=== PATIENT | female | born 1955 | race Two or more races ===

== ENCOUNTER 2016-09-14 22:45 | Emergency (ER) | payer MEDICAID ==
[~2016-09-14] VITALS: Ht 160 cm; Wt 68.9 kg
[2016-09-14 23:10] VITALS: BP 171/72
[2016-09-14] MEDS ORDERED: cefTRIAXone 1 GM in NS 55 ML IVPB ONE (23:15)
--- NOTE | 2016-09-14 23:18 | Emergency Room Report ---
History of Present Illness General Chief Complaint: Pain Source: Patient Present Illness HPI This is a 60-year-old female with history diabetes. She presents with chief complaint of left foot pain. She noticed some redness in the dorsum of foot 3 days ago. Now is getting worse and tracking up to the ankle. No fever or chills. No trauma. No drainage. Pain is 7/10. No other complaint. Allergies: Coded Allergies: No Known Allergies (Unverified , 09/14/16) Patient History Past Medical History: see triage record, old chart reviewed, DM Past Surgical History: other Pertinent Family History: none Social History: Denies: smoking Now: No Immunizations: other Reviewed Nursing Documentation: PMH: Agreed, PSxH: Agreed Nursing Documentation-PMH Past Medical History: No History, Except For Hx Hypertension: Yes Hx Diabetes: Yes Review of Systems Eye: Denies: blurred vision, eye pain ENT: Denies: ear pain, nose congestion, throat swelling Respiratory: Denies: cough, shortness of breath Cardiovascular: Denies: chest pain, palpitations Gastrointestinal: Denies: abdominal pain, diarrhea, nausea, vomiting Musculoskeletal: Denies: back pain, joint pain Skin: Denies: rash Neurological: Denies: headache, numbness Endocrine: Denies: increased thirst, increased urine Hematologic/Lymphatic: Denies: easy bruising All Other Systems: negative except mentioned in HPI Physical Exam Vital Signs Date Time Temp Pulse Resp B/P Pulse Ox O2 Delivery O2 Flow Rate FiO2 09/14/16 22:54 97.5 85 16 195/83 99 Room Air vitals with hypertension Sp02 EP Interpretation: reviewed, normal General Appearance: well appearing, no apparent distress, alert Head: normocephalic, atraumatic Eyes: bilateral eye EOMI, bilateral eye PERRL ENT: hearing grossly normal, normal pharynx Neck: full range of motion, supple, no meningismus Respiratory: chest non-tender, lungs clear, normal breath sounds Cardiovascular #1: regular rate, rhythm, no murmur Gastrointestinal: normal bowel sounds, non tender, no mass, no organomegaly, no bruit, non-distended Musculoskeletal: back normal, gait/station normal, normal range of motion, other - Left foot: On the dorsum of the foot there is an area of erythema measuring about 4 cm. Localized to the second through fourth toes at the webspace and tracking proximally to the ankle. No erythema. No crepitance. Sensation normal. Full range of motion of the ankle and toes. Psychiatric: mood/affect normal Skin: warm/dry Medical Decision Making Diagnostic Impression: Primary Impression: Cellulitis of left foot excluding toes Additional Impressions: Hypertension Qualified Codes: I10 - Essential (primary) hypertension Hyperglycemia due to type 2 diabetes mellitus Qualified Codes: E11.65 - Type 2 diabetes mellitus with hyperglycemia ER Course Patient presents with cellulitis of her left foot. No evidence of any abscess or necrotizing fasciitis. We'll discharge home. Blood pressure improved. Antibiotics given here. Lab Results Impression labs showed hyperglycemia Last Vital Signs Date Time Temp Pulse Resp B/P Pulse Ox O2 Delivery O2 Flow Rate FiO2 09/14/16 22:54 97.5 85 16 195/83 99 Room Air Status: improved Disposition: HOME, SELF-CARE Condition: Stable Additional Instructions: Followup with your Dr. in 2-3 days. Return if symptom worsen. FELIX CARVALHO M.D. Sep 14, 2016 23:18
[2016-09-14 23:53] LABS: BASOPHILS % (AUTO) 0.7 % (0.0-2.0); EOSINOPHILS % (AUTO) 2.3 % (0.0-3.0); LYMPHOCYTES % (AUTO) 15.2 % (20.0-45.0); MEAN CORPUSCULAR HEMOGLOBIN 33.8 PG (27.0-31.0); MEAN CORPUSCULAR HGB CONC 36.3 G/DL (32.0-36.0); MEAN CORPUSCULAR VOLUME 93 FL (80-99); MEAN PLATELET VOLUME 9.8 FL (6.5-10.1); MONOCYTES % (AUTO) 8.4 % (1.0-10.0); NEUTROPHILS % (AUTO) 73.3 % (45.0-75.0); PLATELET COUNT 128 K/UL (150-450); RED BLOOD COUNT 3.54 M/UL (4.20-5.40); RED CELL DISTRIBUTION WIDTH 11.7 % (11.6-14.8); WHITE BLOOD COUNT 8.6 K/UL (4.8-10.8)
[2016-09-15 00:07] LABS: ANION GAP 16 (5-15); CALCIUM 9.6 mg/dL (8.6-10.2); CARBON DIOXIDE 25 mEQ/L (20-30); CHLORIDE 97 mEQ/L (98-107); CREATININE 0.9 mg/dL (0.5-0.9); GLOMERULAR FILTRATION RATE > 60 mL/min (>60); HEMOLYSIS 3; SODIUM 138 mEQ/L (135-145)
[2016-09-15 00:51] VITALS: BP 156/71
[2016-09-15 00:52] VITALS: BP 156/71
[2016-10-03] MEDS ORDERED: ZYVOX600 MG ORAL (13:27)
== END 2016-09-15 00:53 | disposition home or self-care (01) ==
LOC: EMR 23:08
DX: L03.116 Cellulitis of left lower limb (principal); I10 Essential (primary) hypertension; E11.65 Type 2 diabetes mellitus with hyperglycemia
CPT/HCPCS: 36415; 80048; 85025; 96374; 99284; J0696

== ENCOUNTER 2016-09-20 08:15 | Inpatient (IN) | payer MEDICAID ==
[~2016-09-20] VITALS: Ht 162.6 cm; Wt 69.4 kg
[2016-09-20] MEDS ORDERED: Cefepime HCl 1 GM in NS 55 ML IV SCH (08:45)
[2016-09-20] MEDS ORDERED: fentaNYL 100 mcg/2 mL IV ONE (08:45)
[2016-09-20] MEDS ORDERED: Vancomycin 1 GM in NS 275 ML IV ONE (08:45)
[2016-09-20] MEDS ORDERED: metroNIDAZOLE 500mg 100 ML IV SCH (08:45)
--- NOTE | 2016-09-20 08:51 | Emergency Room Report ---
History of Present Illness General Chief Complaint: Lower Extremity Injury Source: Patient Present Illness HPI The patient presents with left foot pain. She was started on clindamycin on . She's been taking them. The foot is not better and still has pain. She's been taking ibuprofen. > 10 years since her last tetanus shot. No fevers chills. No numbness. Foot is painful: 8/10,. burning, constant but worse when dependent. No known PVD. Patient on metformin. No known trauma. Allergies: Coded Allergies: No Known Allergies (Unverified , 09/14/16) Patient History Past Medical History: see triage record Social History: Denies: smoking Social History Narrative with daughter Last Menstrual Period: na Reviewed Nursing Documentation: PMH: Agreed, PSxH: Agreed Nursing Documentation-PMH Past Medical History: No History, Except For Hx Hypertension: Yes Hx Diabetes: Yes Review of Systems All Other Systems: negative except mentioned in HPI Physical Exam Vital Signs Date Time Temp Pulse Resp B/P Pulse Ox O2 Delivery O2 Flow Rate FiO2 09/20/16 08:32 97.5 70 18 183/79 99 Room Air Sp02 EP Interpretation: reviewed, normal General Appearance: well appearing, no apparent distress, GCS 15 Head: normocephalic Eyes: bilateral eye PERRL, bilateral eye normal inspection ENT: moist mucus membranes Neck: supple Respiratory: lungs clear, normal breath sounds Cardiovascular #1: regular rate, rhythm Cardiovascular #2: 2+ radial (R), 2+ dorsalis pedis (R), 2+ dorsalis pedis (L) - good cap fill Gastrointestinal: normal inspection, normal bowel sounds, non tender, no mass, non-distended Musculoskeletal: back normal, gait/station normal - with slight limp due to L foot pain, normal range of motion, no calf tenderness Neurologic: alert, oriented x3, grossly normal Skin: warm/dry, other - erythema L foot dorsum with fungal growth between toes Medical Decision Making Diagnostic Impression: Primary Impression: Cellulitis Qualified Codes: L03.116 - Cellulitis of left lower limb Additional Impressions: Antibiotic failure Foreign body R 5th toe Diabetes Qualified Codes: E11.628 - Type 2 diabetes mellitus with other skin complications ER Course Patient presents several days and to course of clindamycin. The cellulitis in her foot is not improving. If he continues in her swelling and pain. Differential includes resistant organism, poor circulation, and adequate antibiotic levels. Patient needs to be admitted to the hospital for IV antibiotics as an outpatient antibiotics have failed. WBC and ESR normal. Improved with treatment. Radiology calls with stating FB 5th toe. (I question this finding.) Review with patient who denies any trauma or possible FB. Admit Med Dr. Rhodes. Message for Dr. Brady to consult (podiatry). Laboratory Tests Test 09/20/16 09:10 09/20/16 11:10 White Blood Count 7.3 K/UL (4.8-10.8) Red Blood Count 3.36 M/UL (4.20-5.40) L Hemoglobin 10.9 G/DL (12.0-16.0) L Hematocrit 30.9 % (37.0-47.0) L Mean Corpuscular Volume 92 FL (80-99) Mean Corpuscular Hemoglobin 32.3 PG (27.0-31.0) H Mean Corpuscular Hemoglobin Concent 35.1 G/DL (32.0-36.0) Red Cell Distribution Width 10.8 % (11.6-14.8) L Platelet Count 155 K/UL (150-450) Mean Platelet Volume 8.1 FL (6.5-10.1) Neutrophils (%) (Auto) 71.9 % (45.0-75.0) Lymphocytes (%) (Auto) 16.9 % (20.0-45.0) L Monocytes (%) (Auto) 7.6 % (1.0-10.0) Eosinophils (%) (Auto) 2.6 % (0.0-3.0) Basophils (%) (Auto) 0.9 % (0.0-2.0) Erythrocyte Sedimentation Rate 106 MM/HR (0-30) H Prothrombin Time 9.4 SEC (9.30-11.50) Prothrombin Time INR 0.9 (0.9-1.1) PTT 27 SEC (23-33) Sodium Level 138 mEQ/L (135-145) Potassium Level 4.1 mEQ/L (3.4-4.9) Chloride Level 99 mEQ/L (98-107) Carbon Dioxide Level 27 mEQ/L (20-30) Anion Gap 12 (5-15) Blood Urea Nitrogen 16 mg/dL (7-23) Creatinine 0.7 mg/dL (0.5-0.9) Estimate Glomerular Filtration Rate > 60 mL/min (>60) Glucose Level 170 mg/dL (74-106) H Lactic Acid Level 0.60 mmol/L (0.66-2.22) L Calcium Level 9.8 mg/dL (8.6-10.2) Total Bilirubin 0.3 mg/dL (0.0-1.2) Aspartate Amino Transferase (AST) 9 U/L (5-40) Alanine Aminotransferase (ALT) 8 U/L (3-33) Alkaline Phosphatase 93 U/L (35-104) Total Creatine Kinase 45 U/L (26-140) Troponin I < 0.30 ng/mL (<=0.30) Total Protein 7.7 g/dL (6.6-8.7) Albumin 4.0 g/dL (3.5-5.2) Globulin 3.7 g/dL Albumin/Globulin Ratio 1.0 (1.0-2.7) Urine Color Pending Urine Appearance Pending Urine pH Pending Urine Specific [place] Pending Urine Protein Pending Urine Glucose (UA) Pending Urine Ketones Pending Urine Occult Blood Pending Urine Nitrite Pending Urine Bilirubin Pending Urine Urobilinogen Pending Urine Leukocyte Esterase Pending EKG Diagnostic Results Rate: normal Rhythm: NSR ST Segments: no acute changes Rhythm Strip Diag. Results EP Interpretation: yes Rhythm: NSR, no PVC's, no ectopy Chest X-Ray Diagnostic Results EP Interpretation: Yes Findings: no consolidation, no effusion, no pneumothorax, no acute cardiopulmonary disease Number of Views: 1 Other X-Ray Diagnostic Results Other X-Ray Diagnostic Results : X-Ray Ordered: L foot EP Interpretation: Yes Findings: no fractures, no dislocation, no soft tissue swelling, other - - Foreign body 5th toe Number of Views: 3 Last Vital Signs Date Time Temp Pulse Resp B/P Pulse Ox O2 Delivery O2 Flow Rate FiO2 09/20/16 12:18 97.6 69 18 150/69 99 Room Air Status: improved Disposition: ADMITTED INPATIENT Condition: Serious Demetrio Garvin M.D. Sep 20, 2016 08:51
[2016-09-20] MEDS ORDERED: TdaP Vaccine 0.5ml Syr IM ONE (09:00)
[2016-09-20] MEDS ORDERED: Vancomycin 1gm inj IVPB ONE (09:21)
[2016-09-20] MEDS ORDERED: Cefepime 1gm vial ONE (09:21)
[2016-09-20 09:23] LABS: BASOPHILS % (AUTO) 0.9 % (0.0-2.0); EOSINOPHILS % (AUTO) 2.6 % (0.0-3.0); LYMPHOCYTES % (AUTO) 16.9 % (20.0-45.0); MEAN CORPUSCULAR HEMOGLOBIN 32.3 PG (27.0-31.0); MEAN CORPUSCULAR HGB CONC 35.1 G/DL (32.0-36.0); MEAN CORPUSCULAR VOLUME 92 FL (80-99); MEAN PLATELET VOLUME 8.1 FL (6.5-10.1); MONOCYTES % (AUTO) 7.6 % (1.0-10.0); NEUTROPHILS % (AUTO) 71.9 % (45.0-75.0); PLATELET COUNT 155 K/UL (150-450); RED BLOOD COUNT 3.36 M/UL (4.20-5.40); RED CELL DISTRIBUTION WIDTH 10.8 % (11.6-14.8); WHITE BLOOD COUNT 7.3 K/UL (4.8-10.8)
[2016-09-20 09:31] LABS: INR 0.9 (0.9-1.1); PROTHROMBIN TIME 9.4 SEC (9.30-11.50)
[2016-09-20 09:35] LABS: ALANINE AMINOTRANSFERASE 8 U/L (3-33); ANION GAP 12 (5-15); ASPARTATE AMINO TRANSFERASE 9 U/L (5-40); CALCIUM 9.8 mg/dL (8.6-10.2); CARBON DIOXIDE 27 mEQ/L (20-30); CHLORIDE 99 mEQ/L (98-107); CREATININE 0.7 mg/dL (0.5-0.9); GLOMERULAR FILTRATION RATE > 60 mL/min (>60); HEMOLYSIS 1; POTASSIUM 4.1 mEQ/L (3.4-4.9); SODIUM 138 mEQ/L (135-145); TOTAL PROTEIN 7.7 g/dL (6.6-8.7)
[2016-09-20 09:38] LABS: TROPONIN I < 0.30 ng/mL (<=0.30)
[2016-09-20 10:27] LABS: ERYTHROCYTE SEDIMENTATION RATE 106 MM/HR (0-30)
[2016-09-20 11:34] LABS: APPEARANCE,URINE CLEAR; KETONES,URINE NEGATIVE (NEGATIVE); LEUKOCYTE ESTERASE ,URINE NEGATIVE (NEGATIVE); NITRITE,URINE NEGATIVE (NEGATIVE); PH,URINE 5 (4.5-8.0); PROTEIN,URINE 3+ (NEGATIVE); UROBILINOGEN,URINE NORMAL MG/DL (0.0-1.0)
[2016-09-20 11:51] LABS: BACTERIA,URINE FEW /HPF; RBC,URINE 0-2 /HPF (0 - 2); SQUAMOUS EPITHELIAL CELL,UR FEW /LPF (NONE/OCC); WBC,URINE 0-2 /HPF (0 - 2)
--- NOTE | 2016-09-20 12:13 | Diagnostic Imaging Report ---
Indication: Pain. Swollen foot Technique: 3 views left foot Comparison: none Findings: A 2 mm metallic foreign body is seen within the medial aspect of the soft tissues of the fifth digit. This appears to be located inferiorly. No acute fractures. No dislocations. No definite osteolytic process or unusual periosteal reaction. The joint spaces are preserved Impression: Positive for foreign body within the left fifth toe. No acute bony trauma No plain radiographic findings to suggest osteomyelitis. However, note limited sensitivity of plain radiographs for such. There is high clinical suspicion, consider MRI or nuclear medicine bone scan for more sensitive characterization
[2016-09-20 12:18] VITALS: BP 150/69
--- NOTE | 2016-09-20 12:21 | Diagnostic Imaging Report ---
Indication: Chest pain Technique: One view of the chest Comparison: none Findings: Lungs and pleural spaces are clear. Heart size is normal. Impression: No acute process
[2016-09-20] MEDS ORDERED: LISINOPRIL10 MG ORAL (14:00)
[2016-09-20] MEDS ORDERED: METFORMIN HCL500 M1 ORAL (14:00)
--- NOTE | 2016-09-20 15:54 | Infectious Diseases Prog Note ---
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, will continue wide spectrum antibiotics (2) Cellulitis of left foot Assessment & Plan: will continue vancomycin, metronidazol and cefepime empirically , will order an MRI to rule out osteomyelitis, after the foreign body is removed (3) Diabetes mellitus Assessment & Plan: recommend tight glycemic control to keep blood glucose between 80-120 (4) HTN (hypertension) Assessment & Plan: continue meds to keep BP <140 Subjective Allergies: Coded Allergies: No Known Allergies (Unverified , 09/14/16) Objective Vital Signs Last 24 Hour Vital Signs Date Time Temp Pulse Resp B/P Pulse Ox O2 Delivery O2 Flow Rate FiO2 09/20/16 13:00 97.6 09/20/16 12:18 97.6 69 18 150/69 99 Room Air 09/20/16 08:32 97.5 70 18 183/79 99 Room Air Height (Feet): 5 Height (Inches): 2.00 Weight (Pounds): 140 Laboratory Tests Test 09/20/16 09:10 09/20/16 11:10 White Blood Count 7.3 K/UL (4.8-10.8) Red Blood Count 3.36 M/UL (4.20-5.40) L Hemoglobin 10.9 G/DL (12.0-16.0) L Hematocrit 30.9 % (37.0-47.0) L Mean Corpuscular Volume 92 FL (80-99) Mean Corpuscular Hemoglobin 32.3 PG (27.0-31.0) H Mean Corpuscular Hemoglobin Concent 35.1 G/DL (32.0-36.0) Red Cell Distribution Width 10.8 % (11.6-14.8) L Platelet Count 155 K/UL (150-450) Mean Platelet Volume 8.1 FL (6.5-10.1) Neutrophils (%) (Auto) 71.9 % (45.0-75.0) Lymphocytes (%) (Auto) 16.9 % (20.0-45.0) L Monocytes (%) (Auto) 7.6 % (1.0-10.0) Eosinophils (%) (Auto) 2.6 % (0.0-3.0) Basophils (%) (Auto) 0.9 % (0.0-2.0) Erythrocyte Sedimentation Rate 106 MM/HR (0-30) H Prothrombin Time 9.4 SEC (9.30-11.50) Prothromb Time International Ratio 0.9 (0.9-1.1) Activated Partial Thromboplast Time 27 SEC (23-33) Sodium Level 138 mEQ/L (135-145) Potassium Level 4.1 mEQ/L (3.4-4.9) Chloride Level 99 mEQ/L (98-107) Carbon Dioxide Level 27 mEQ/L (20-30) Anion Gap 12 (5-15) Blood Urea Nitrogen 16 mg/dL (7-23) Creatinine 0.7 mg/dL (0.5-0.9) Estimat Glomerular Filtration Rate > 60 mL/min (>60) Glucose Level 170 mg/dL (74-106) H Lactic Acid Level 0.60 mmol/L (0.66-2.22) L Calcium Level 9.8 mg/dL (8.6-10.2) Total Bilirubin 0.3 mg/dL (0.0-1.2) Aspartate Amino Transf (AST/SGOT) 9 U/L (5-40) Alanine Aminotransferase (ALT/SGPT) 8 U/L (3-33) Alkaline Phosphatase 93 U/L (35-104) Total Creatine Kinase 45 U/L (26-140) Troponin I < 0.30 ng/mL (<=0.30) Total Protein 7.7 g/dL (6.6-8.7) Albumin 4.0 g/dL (3.5-5.2) Globulin 3.7 g/dL Albumin/Globulin Ratio 1.0 (1.0-2.7) Urine Color Pale yellow Urine Appearance Clear Urine pH 5 (4.5-8.0) Urine Specific [place] 1.010 (1.005-1.035) Urine Protein 3+ (NEGATIVE) H Urine Glucose (UA) 1+ (NEGATIVE) H Urine Ketones Negative (NEGATIVE) Urine Occult Blood 1+ (NEGATIVE) H Urine Nitrite Negative (NEGATIVE) Urine Bilirubin Negative (NEGATIVE) Urine Urobilinogen Normal MG/DL (0.0-1.0) Urine Leukocyte Esterase Negative (NEGATIVE) Urine RBC 0-2 /HPF (0 - 2) Urine WBC 0-2 /HPF (0 - 2) Urine Squamous Epithelial Cells Few /LPF (NONE/OCC) Urine Bacteria Few /HPF (NONE) Current Medications Medications (Trade) Dose Ordered Sig/Jesse Route PRN Reason Start Time Stop Time Status Last Admin Dose Admin Cefepime HCl 1 gm/ Sodium Chloride 55 ml @ 110 mls/hr Q12H IV 09/20/16 08:45 09/21/16 08:44 09/20/16 09:27 Metronidazole 100 ml @ 100 mls/hr Q8H IV 09/20/16 08:45 09/21/16 08:44 09/20/16 09:28 Vancomycin HCl/ Dextrose (Vancomycin/D5W) 275 ml @ 183.708 mls/hr Q12HR IVPB 09/20/16 21:00 09/25/16 20:59 Mino Boyd M.D. Sep 20, 2016 15:54
[2016-09-20 19:00] VITALS: BP 147/72
[2016-09-20] MEDS ORDERED: Vancomycin 1 GM in D5W 275 ML IVPB SCH (21:00)
[2016-09-20] MEDS: Vancomycin 750mg/D5W 275ml IVPB SCH ×2 (21:51)
[2016-09-20] MEDS: Lisinopril 10mg tab ORAL SCH (21:51)
[2016-09-20] MEDS: NovoLOG Insulin Flexpen SUBQ SCH (21:55)
--- NOTE | 2016-09-20 22:07 | Consultation ---
DATE OF CONSULTATION: INFECTIOUS DISEASE CONSULTATION CONSULTING PHYSICIAN: Mino Paz M.D. REQUESTING PHYSICIAN: Pauline Rhodes M.D. REASON FOR CONSULTATION: Left foot cellulitis with foreign body in the fourth toe. Recommendation for antibiotics therapy since she failed outpatient oral treatment. HISTORY OF PRESENT ILLNESS: The patient is a 61-year-old female with past medical history of diabetes and hypertension, who presented to the emergency room with left foot pain, swelling, redness, and erythema. It happened last Monday when she was walking in the park. She felt something stuck in her foot, came into the emergency room couple of days ago, and she was given clindamycin on and discharged home. The patient has been taking clindamycin without any clinical improvement. She continued to have pain and swelling and redness in her left foot. She has been taking ibuprofen without any help, so she came in today to the emergency room for further evaluation and management. The patient had an x-ray of the left foot, which showed foreign body in the fourth toe, so she was started empirically on vancomycin, cefepime, and Flagyl and I was consulted by the primary provider for antibiotics recommendation and management. The patient denied any fever or chills. No cough or shortness of breath. No chest pain. No nausea, vomiting, or diarrhea. No urinary symptoms. No dysuria. PAST MEDICAL HISTORY: Significant for hypertension and diabetes. PAST SURGICAL HISTORY: Negative. MEDICATIONS: She is on vancomycin, cefepime, and Flagyl. ALLERGIES: She has no known drug allergy. 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 No drugs, tobacco, or alcohol. FAMILY HISTORY: Not contributory. REVIEW OF SYSTEMS: A 14-point of systems reviewed were all negative apart from the one I mentioned above in the History and Physical. PHYSICAL EXAMINATION: VITAL SIGNS: Temperature 97.6 degrees, pulse 69, respirations 18, blood pressure 150/69, and saturation 99% on room air. GENERAL: A middle-aged female, up in bed, awake, alert, oriented, Swedish speaker, and daughter at the bedside translating for her. She is not in acute distress. HEENT: Normocephalic and atraumatic. Pupils are reactive to light equally. Moist oral mucosa. No exudate or thrush. NECK: Supple. No lymphadenopathy. CARDIOVASCULAR: Regular rate and rhythm. No murmur or gallop. LUNGS: Clear bilaterally. No wheezing. No rhonchi. ABDOMEN: Soft, nontender, and nondistended. Positive bowel sounds. No hepatosplenomegaly or ascites. EXTREMITIES: She had left foot cellulitis extending on the dorsal aspect with swelling in the toes mainly the fourth one day. She had a puncture wound at the sole of the left foot where she had foreign body evident on the x-ray. LABORATORY DATA: Labs showed white count of 7.3, hemoglobin of 10.9, and platelet count of 155,000. BUN of 16 and creatinine of 0.7. AST of 9, ALT of 8, and alkaline phosphatase of 93. Urinalysis showed negative nitrates, negative leukocyte esterase, and few bacteria. IMAGING: She had left foot x-ray, which showed a foreign body within the left fifth toe. Chest x-ray showed no acute infiltrate or effusion. ASSESSMENT AND PLAN: 1. Acute foreign body of the foot. Recommend Podiatry consultation for removal. We will continue wide-spectrum antibiotics coverage with vancomycin, cefepime, and Flagyl for now pending further treatment. 2. Cellulitis of the left foot. We will continue vancomycin, metronidazole, and cefepime empirically. We will order MRI to rule out osteomyelitis once her foreign body is removed. We will monitor the sedimentation rate and C-reactive protein. 3. Diabetes. Recommend tight glycemic control to keep blood glucose between 80 to 120. 4. Hypertension. Continue medications to keep blood pressure less than 140. Mino Paz M.D. DR: RONALD JOB#: [id number] CC:
[2016-09-21] VITALS: BP 187/80
[2016-09-21] MEDS: metFORMIN 500mg tab ORAL SCH ×2 (06:20→13:45)
[2016-09-21] MEDS: NovoLOG Insulin Flexpen SUBQ SCH ×4 (06:21→21:49)
[2016-09-21 08:00] VITALS: BP 151/74
[2016-09-21] MEDS: Lisinopril 10mg tab ORAL SCH ×2 (09:04→17:21)
[2016-09-21] MEDS: Vancomycin 750mg/D5W 275ml IVPB SCH ×4 (09:05→21:48)
[2016-09-21] MEDS ORDERED: Vancomycin 1gm in D5W 275ml IVPB SCH (09:30)
[2016-09-21] MEDS: Heparin 5000 units/ml inj SUBQ SCH ×2 (10:00→21:48)
--- NOTE | 2016-09-21 11:22 | Consultation ---
Consult Note Consult Note 61 year old female with history of T2DM presents with left foot cellulitis. Patient presented to the emergency room on 09/14/15. She was discharged with oral antibiotics. Patient returned to the hospital since the cellulitis was not improving. Patient complains of pain and chills Assessment/Plan 61F with history of diabetes presents with left foot puncture wound with retained foreign body seen on radiograph. Cellulitis not improving with oral antibiotics. Patient does not have elevated WBC and is afebrile. ESR is 106 - Ordering left foot MRI for evaluation of possible osteomyelitis or abscess - Continue IV antibiotics. Keep covering for staph, strep, and pseudomonas - Non weight bearing on left forefoot - Will monitor daily Mango Vitale DPM Sep 21, 2016 11:22
--- NOTE | 2016-09-21 14:27 | Consultation ---
Consult Note Consult Note asked to eval for proteinuria: The patient is a 61-year-old female with past medical history of diabetes and hypertension, who presented to the emergency room with left foot pain, swelling, redness, and erythema. It happened last Monday when she was walking in the park. She felt something stuck in her foot, came into the emergency room couple of days ago, and she was given clindamycin on and discharged home. The patient has been taking clindamycin without any clinical improvement. She continued to have pain and swelling and redness in her left foot. She has been taking ibuprofen without any help, so she came in today to the emergency room for further evaluation and management. The patient had an x-ray of the left foot, which showed foreign body in the fourth toe, so she was started empirically on vancomycin, cefepime, and Flagyl and I was consulted by the primary provider for antibiotics recommendation and management. The patient denied any fever or chills. No cough or shortness of breath. No chest pain. No nausea, vomiting, or diarrhea. No urinary symptoms. No dysuria. Assessment/Plan - Diabetic Nephropathy Other: (1) Acute foreign body of foot (2) Cellulitis of left foot (3) Diabetes mellitus (4) HTN (hypertension) (5) Anemia Plan: BP and BS control- Antibiotics- Surgical eval per orders- GUI QUEVEDO Sep 21, 2016 14:27
--- NOTE | 2016-09-21 15:04 | Diagnostic Imaging Report ---
Indication: OSTEOMY Technique: , Coronal, and axial FSE STIR and T1 FSE images Comparison: Reference made to plain radiograph 09/20/2016 Findings: There is equivocal subtle slight increased STIR signal within the first distal phalanx. No associated T1 abnormality. There is a cyst at the base of the third metacarpal. There is equivocal subtle increased STIR signal involving the fourth proximal, middle, and distal phalanges, and equivocal subtle decreased T1 signal within the proximal phalanx corresponding T1 signal abnormality. Suspect that this is related to volume averaging artifact, but acute edema cannot be completely ruled out. There is equivocal subtle increased STIR signal within fourth metatarsal head without corresponding T1 abnormality There is equivocal subtle increased STIR signal within the fifth proximal, middle, and distal phalanges There is dorsal soft tissue edema. No focal fluid collections are evident. There is questionably a tiny focus of susceptibility artifact in the region of the foreign body in the fifth digit recently described on recent plain radiograph. Impression: No definite findings to suggest acute osteomyelitis Foci of equivocal subtle increased STIR signal within the first, fourth, and fifth digits as described above. Suspect artifactual or possibly on the basis of mild reactive edema. Early osteomyelitis doubted but not completely excludable. Correlate with clinical findings Equivocal subtle increased STIR and decreased T1 signal within the fourth proximal phalanx. Again, could be artifactual, but early osteomyelitis is not completely excludable. Correlate with clinical findings Evidence of soft tissue edema. No definite drainable abscess Equivocal focal low signal in the fifth digit soft tissues which, if real, could represent the foreign body described on recent plain radiographs.
[2016-09-21 16:00] VITALS: BP 150/82
[2016-09-21] MEDS: Norco 5mg/325mg tab ORAL PRN (16:02)
--- NOTE | 2016-09-21 17:02 | Infectious Diseases Prog Note ---
Assessment/Plan Problems: (1) Acute foreign body of foot Assessment & Plan: relay man is consult for removal, will continue wide spectrum antibiotics (2) Cellulitis of left foot Assessment & Plan: will continue vancomycin, metronidazol and cefepime empirically , will order an MRI to rule out osteomyelitis, after the foreign body is removed (3) Diabetes mellitus Assessment & Plan: recommend tight glycemic control to keep blood glucose between 80-120 (4) HTN (hypertension) Assessment & Plan: continue meds to keep BP <140 Subjective Musculoskeletal: Reports: pain, swelling Allergies: Coded Allergies: No Known Allergies (Unverified , 09/14/16) All Systems: reviewed and negative except above Objective Vital Signs Last 24 Hour Vital Signs Date Time Temp Pulse Resp B/P Pulse Ox O2 Delivery O2 Flow Rate FiO2 09/21/16 09:04 151/74 09/21/16 08:00 97.3 64 18 151/74 98 Room Air 09/21/16 00:00 97.7 69 18 187/80 96 Room Air 09/20/16 21:51 146/64 09/20/16 19:00 96.6 67 20 147/72 97 Room Air Height (Feet): 5 Height (Inches): 4.00 Weight (Pounds): 153 General Appearance: WD/WN, no acute distress HEENT: normocephalic, atraumatic, anicteric, mucous membranes moist, PERRL Respiratory/Chest: chest wall non-tender, lungs clear, normal breath sounds, no respiratory distress, no accessory muscle use Cardiovascular: normal peripheral pulses, normal rate, regular rhythm, no gallop/murmur Abdomen: normal bowel sounds, soft, non tender, no organomegaly, non distended , no mass Extremities: other - left foot redness and swelling Skin: no rash, no lesions Current Medications Medications (Trade) Dose Ordered Sig/Jesse Route PRN Reason Start Time Stop Time Status Last Admin Dose Admin Acetaminophen/ Hydrocodone Bitart ([place] 5/325) 1 tab Q4H PRN ORAL Moderate Pain (Pain Scale 4-6) 09/20/16 20:45 09/27/16 20:44 09/21/16 16:02 Cefepime HCl/ Dextrose (Maxipime/D5W) 55 ml @ 110 mls/hr Q12HR@0600,1800 IVPB 09/21/16 18:00 09/28/16 17:59 Dextrose (Dextrose 50%) STAT PRN IV Hypoglycemia 09/20/16 20:45 10/20/16 20:44 Heparin Sodium (Porcine) (Heparin 5000 units/ml) 5,000 units Q12HR SUBQ 09/21/16 10:00 10/21/16 09:59 Insulin Aspart (NovoLOG) BEFORE MEALS AND HS SUBQ 09/20/16 22:00 10/20/16 21:59 09/21/16 13:46 Lisinopril 10 mg 10 mg BID ORAL 09/21/16 18:00 10/21/16 17:59 Metformin HCl (Glucophage) 500 mg BIDBL ORAL 09/21/16 06:30 10/21/16 06:29 09/21/16 13:45 Metronidazole 100 ml @ 100 mls/hr Q8H IV 09/21/16 17:00 09/28/16 16:59 Ondansetron HCl (Zofran) 4 mg Q6H PRN IVP Nausea & Vomiting 09/20/16 20:45 10/20/16 20:44 Vancomycin HCl 1 ea 1 ea DAILY PRN MISC PRN RX PROTOCOL 09/20/16 17:30 10/20/16 17:29 Vancomycin HCl/ Dextrose (Vancomycin/D5W) 275 ml @ 183.708 mls/hr Q12H IVPB 09/20/16 21:00 09/25/16 20:59 09/21/16 09:05 Mino Paz M.D. Sep 21, 2016 17:02
[2016-09-21] MEDS: Flagyl 500mg/NS 100ml Pre-Mix IV SCH (17:21)
[2016-09-21] MEDS: Cefepime 1gm in D5W 55ml IVPB SCH (18:46)
[2016-09-21 19:00] VITALS: BP 148/74
[2016-09-21 21:12] LABS: BASOPHILS % (AUTO) 1.2 % (0.0-2.0); EOSINOPHILS % (AUTO) 3.1 % (0.0-3.0); LYMPHOCYTES % (AUTO) 30.4 % (20.0-45.0); MEAN CORPUSCULAR HEMOGLOBIN 31.8 PG (27.0-31.0); MEAN CORPUSCULAR HGB CONC 34.5 G/DL (32.0-36.0); MEAN CORPUSCULAR VOLUME 92 FL (80-99); MEAN PLATELET VOLUME 9.1 FL (6.5-10.1); MONOCYTES % (AUTO) 8.6 % (1.0-10.0); NEUTROPHILS % (AUTO) 56.8 % (45.0-75.0); PLATELET COUNT 154 K/UL (150-450); RED BLOOD COUNT 2.96 M/UL (4.20-5.40); RED CELL DISTRIBUTION WIDTH 11.3 % (11.6-14.8); WHITE BLOOD COUNT 6.2 K/UL (4.8-10.8)
--- NOTE | 2016-09-21 21:17 | Consultation ---
DATE OF CONSULTATION: 09/21/2016 HEMATOLOGY/ONCOLOGY CONSULTATION CONSULTING PHYSICIAN: Bogdan Tidwell M.D. REQUESTING PHYSICIAN: Pauline Rhodes M.D. REASON FOR CONSULTATION: Evaluation of anemia. IDENTIFYING DATA: Dear Dr. Pauline Rhodes, The patient is a pleasant 61-year-old female with a past medical history of significant for hypertension and diabetes mellitus, at this time presents to the emergency room complaining of left foot swelling and edema. She in a plant when she was walking last week. She went to the ER four days later, given clindamycin and discharged home. She continued to have pain, swelling, and redness of the left foot, has been taking ibuprofen. She came in to the ER now for further evaluation and treatment. X-ray of the left foot completed and showed a foreign body in the fourth toe, treated with antibiotics, ID services consulted, hematology service was consulted secondary to the patient's anemia for further evaluation and care. PAST MEDICAL HISTORY: Hypertension and diabetes mellitus. PAST SURGICAL HISTORY: None noted. MEDICATIONS: Vancomycin . ALLERGIES: No known drug allergies. 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 No alcohol, tobacco, or illicit drug use. FAMILY HISTORY: Noncontributory. REVIEW OF SYSTEMS: Constitutional: No fever, chills, or night sweats. Skin: No rashes, lumps, or itching. HEENT: No headache, hearing or vision changes. Breasts: No lumps, pain, or discharge. Pulmonary: No cough, sputum, or shortness of breath. Cardiovascular: No chest pain, tightness, or palpitations. Gastrointestinal: No nausea, vomiting, or diarrhea. Genitourinary: No dysuria, frequency, or urgency. Musculoskeletal: No joint swelling, muscle pain, or trauma. PHYSICAL EXAMINATION: GENERAL: The patient is in no acute distress. VITAL SIGNS: Temperature 97.3 degrees Fahrenheit, pulse 64, respiratory rate 12, blood pressure 151/74, and pulse oximetry 98% on room air. PULMONARY: Decreased breath sounds. CARDIOVASCULAR: Regular rhythm. No S3 or S4. ABDOMEN: Soft, nontender, and nondistended. EXTREMITIES: A 1+ edema. LABORATORY DATA: BUN of 16 and creatinine 0.7. WBC 7.3, hemoglobin 10.9, hematocrit 31, and platelet count 135,000. INR is 0.9. ASSESSMENT: 1. Anemia secondary to chronic disease. 2. Decreased hemoglobin and hematocrit, rule out gastrointestinal bleed. 3. Left foot cellulitis with foreign body in fourth toe. 4. Cellulitis of left foot. 5. Diabetes mellitus. 6. Hypertension. RECOMMENDATIONS: 1. Monitor counts. 2. Obtain ferritin. 3. Peripheral smear ordered. 4. Continue antibiotics per ID service. 5. Pain control. 6. DVT prophylaxis. 7. Hold heparin. 8. Gastrointestinal prophylaxis as needed. 9. Discussed with staff. Thank you, Dr. Pauline Rhodes, for this kind referral. Please do not hesitate to contact me with any further questions. Bogdan Tidwell M.D. DR: SULY JOB#: [id number] CC:
[2016-09-21 22:01] LABS: EOSINOPHILS % (MANUAL) 10 % (0-3); LYMPHOCYTES % (MANUAL) 36 % (20-45); NEUTROPHILS % (MANUAL) 50 % (45-75); TOTAL CELLS COUNTED 100
[2016-09-21 22:02] LABS: ANISOCYTOSIS 1+; BAND NEUTROPHILS % (MANUAL) 0 % (0-8); BASOPHILS % (MANUAL) 0 % (0-2); HYPOCHROMASIA 1+; PLATELET ESTIMATE ADEQUATE; PLATELET MORPHOLOGY NORMAL
[2016-09-21 22:11] LABS: PATH BLOOD SMEAR/OMC SENT TO PATHOLOGIST
--- NOTE | 2016-09-21 23:47 | History and Physical Report ---
DATE OF ADMISSION: 09/20/2016 HISTORY OF PRESENT ILLNESS: The patient is admitted for cellulitis of the left foot, failed antibiotic treatment as an outpatient. The patient was started on clindamycin as an outpatient, however, the foot did not feel better. She is taking ibuprofen and foot pain and . PAST MEDICAL HISTORY: History of hypertension, history of diabetes, also history of hypertension. PAST SURGICAL HISTORY: Denies. MEDICATIONS: . ALLERGIES: No known allergies. SOCIAL HISTORY: Denies history of smoking, alcohol, or illicit drugs. FAMILY HISTORY: Noncontributory. REVIEW OF SYSTEMS: HEENT: Denies headaches. Respiratory: Denies shortness of breath. Denies cough. Cardiovascular: Denies chest pain. Gastrointestinal: Denies nausea, vomiting, or diarrhea. Extremities: She does have foot pain. Central Nervous System: Denies change in vision or speech pattern. PHYSICAL EXAMINATION: VITAL SIGNS: Temperature is 96.6 degrees, pulse 67, and blood pressure 147/72. HEENT: PERRLA. NECK: Supple. No lymphadenopathy. CHEST: Clear to auscultation. GASTROINTESTINAL: Soft, nontender, and nondistended. No organomegaly. EXTREMITIES: Moving all extremities. She has left foot cellulitis with swelling in the toes and the fourth one. She has foreign body also evidence from the x-ray. LABORATORY DATA: WBC of 7.2, hemoglobin 10.9, and platelets of 155,000. Sodium 138, potassium 4.1, BUN 16, creatinine 0.7, and glucose of 170. ASSESSMENT: Diabetic foot ulcer, antibiotics on an outpatient basis. PLAN: I have asked Dr. Paz, Dr. Wells, and Dr. Brady to see the patient for the above-mentioned diagnoses and treatment. Dr. Paz. Pauline Rhodes M.D. DR: MONY JOB#: [id number] CC:
[2016-09-22] VITALS: BP 145/88
--- NOTE | 2016-09-22 00:57 | Consultation ---
DATE OF CONSULTATION: 09/21/2016 CONSULTING SPECIALTY: Podiatry. CONSULTING PHYSICIAN: Mango Vitale DPM, covering for Toby Brady D.P.M. She is a 61-year-old female with date of of 1955. REASON FOR CONSULTATION: Left foot cellulitis. HISTORY OF PRESENT ILLNESS: This patient is a 61-year-old female who states she stepped on something while at the park 10 days ago. The area became progressively more painful and inflamed. The patient presented to the emergency room and was started on oral clindamycin. However, the pain and inflammation continued to worsen and the patient decided to return to the hospital. She reports chills, but no nausea, vomiting, or fevers. PAST MEDICAL HISTORY: Type 2 diabetes and hypertension. ALLERGIES: No known. MEDICATIONS: Current antibiotics, vancomycin,metronidazole, and cefepime. SOCIAL HISTORY: Denied tobacco, alcohol, or illicit drug use. PHYSICAL EXAMINATION: VITAL SIGNS: Temperature 97.3, pulse 64, respiratory rate 18, blood pressure 151/74, and O2 is 98% on room air. DERMATOLOGICAL: Right forefoot with erythema and edema. No open wound noted. Small pinpoint hyperpigmented area of the plantar foot, which is the area of possible puncture wound. NEUROLOGICAL: Sensation intact to light touch. VASCULAR: Pedal pulses are palpable. The left forefoot with edema and erythema. The left forefoot is warmer than contralateral foot. MUSCULOSKELETAL: Pain with palpation of the left plantar foot at the area of possible puncture wound. Pain also with palpation of the fourth and fifth toes. LABORATORY AND DIAGNOSTIC DATA: White blood count is 7.3, red blood count 2.36, hemoglobin 10.9, hematocrit 30.9, and platelets 155,000. ESR of 106. Sodium 138, potassium 4.1, chloride 99, carbon dioxide 27, BUN 16, creatinine 0.7, and glucose was 170. RADIOGRAPHIC FINDINGS: A small foreign body at the fat pad proximal to the fourth interdigital space. ASSESSMENT: Left foot puncture wound with retained foreign body. Failed outpatient treatment with oral clindamycin. Pain and inflammation worsening. The patient is afebrile and without leukocytosis. ESR 106. PLAN: 1. Ordering MRI to rule out osteo or abscess. 2. Continue intravenous antibiotics per Infectious Disease specialist's recommendations. 3. We will monitor closely for improvement. The patient may require surgical intervention. Thank you for the consultation. Mango Vitale DPM DR: DEMETRIO JOB#: [id number] CC: [facility]
[2016-09-22] MEDS: Flagyl 500mg/NS 100ml Pre-Mix IV SCH ×3 (01:02→16:57)
[2016-09-22 04:00] VITALS: BP 152/74
[2016-09-22] MEDS: metFORMIN 500mg tab ORAL SCH ×3 (05:45→17:52)
[2016-09-22] MEDS: Cefepime 1gm in D5W 55ml IVPB SCH ×2 (05:46→17:52)
[2016-09-22] MEDS: NovoLOG Insulin Flexpen SUBQ SCH ×4 (05:51→20:46)
[2016-09-22 08:00] VITALS: BP 154/76
[2016-09-22 08:29] LABS: BASOPHILS % (AUTO) 1.1 % (0.0-2.0); EOSINOPHILS % (AUTO) 2.9 % (0.0-3.0); LYMPHOCYTES % (AUTO) 19.2 % (20.0-45.0); MEAN CORPUSCULAR HEMOGLOBIN 31.7 PG (27.0-31.0); MEAN CORPUSCULAR HGB CONC 34.7 G/DL (32.0-36.0); MEAN CORPUSCULAR VOLUME 91 FL (80-99); MEAN PLATELET VOLUME 8.4 FL (6.5-10.1); MONOCYTES % (AUTO) 7.7 % (1.0-10.0); NEUTROPHILS % (AUTO) 69.2 % (45.0-75.0); PLATELET COUNT 162 K/UL (150-450); RED BLOOD COUNT 3.27 M/UL (4.20-5.40); WHITE BLOOD COUNT 6.3 K/UL (4.8-10.8)
[2016-09-22] MEDS: Lisinopril 10mg tab ORAL SCH (08:30)
[2016-09-22] MEDS: Heparin 5000 units/ml inj SUBQ SCH ×2 (08:35→20:45)
[2016-09-22 08:48] LABS: ALANINE AMINOTRANSFERASE 7 U/L (3-33); ANION GAP 11 (5-15); ASPARTATE AMINO TRANSFERASE 10 U/L (5-40); CALCIUM 9.6 mg/dL (8.6-10.2); CARBON DIOXIDE 28 mEQ/L (20-30); CHLORIDE 100 mEQ/L (98-107); CREATININE 0.8 mg/dL (0.5-0.9); CRP QUANT 1.3 mg/dL (< 0.5); GLOMERULAR FILTRATION RATE > 60 mL/min (>60); HEMOLYSIS 0; MAGNESIUM 1.7 mg/dL (1.7-2.5); PHOSPHORUS 3.9 mg/dL (2.5-4.8); POTASSIUM 4.4 mEQ/L (3.4-4.9); SODIUM 139 mEQ/L (135-145); TOTAL PROTEIN 6.9 g/dL (6.6-8.7)
[2016-09-22 09:25] LABS: HEMOLYSIS 6; IRON 83 ug/dL (37-145); TOTAL IRON BINDING CAPACITY 233 ug/dL (250-400)
[2016-09-22] MEDS: Vancomycin 750mg/D5W 275ml IVPB SCH ×4 (10:07→20:43)
--- NOTE | 2016-09-22 10:51 | Podiatric Progress Note ---
Assessment/Plan Patient Anju Clemons is a 61 year old female who was admitted on Sep 20, 2016 at 08: 61 with left foot cellulitis Problems: (1) Cellulitis of left foot (2) Diabetes mellitus (3) Acute foreign body of foot Assessment/Plan Left foot cellulitis. No improvement since yesterday. MRI shows no drainable abscess and no definitive findings to suggest acute osteomyelitis. Foreign body appears to be in soft tissue and not beneath a bony prominence. No open wound. WBC is within normal limits and patient remains afebrile. No left sift noted. ESR is 106 and CRP is 1.3. - Start elevating the foot on 2 pillows - Non weight bearing left foot - Will continue to monitor patient closely - Inflammation in the area is likely secondary to bacterial infection rather than irritation of the soft tissue due to foreign body. If cellulitis resolves with IV antibiotics and patient still experiences pain with weight bearing will consider removal of the foreign body at that time. Additionally, if inflammation continues to worsen even with IV antibiotics will consider surgical intervention. Subjective Reason for consult Left foot cellulitis Allergies: Coded Allergies: No Known Allergies (Unverified , 09/14/16) Subjective Patient states left foot pain. She does not report any nausea, vomiting, fevers , or chills Objective Exam Last 24 Hour Vital Signs Date Time Temp Pulse Resp B/P Pulse Ox O2 Delivery O2 Flow Rate FiO2 09/22/16 08:30 155/81 09/22/16 08:00 97.5 63 22 154/76 100 09/22/16 04:00 97.5 60 21 152/74 96 Room Air 09/22/16 00:00 97.3 66 21 145/88 97 Room Air 09/21/16 19:00 97.5 69 18 148/74 97 Room Air 09/21/16 17:21 145/82 09/21/16 16:00 97.4 90 18 150/82 98 Laboratory Tests Test 09/21/16 20:20 09/22/16 07:55 White Blood Count 6.2 K/UL (4.8-10.8) 6.3 K/UL (4.8-10.8) Red Blood Count 2.96 M/UL (4.20-5.40) L 3.27 M/UL (4.20-5.40) L Hemoglobin 9.4 G/DL (12.0-16.0) L 10.4 G/DL (12.0-16.0) L Hematocrit 27.3 % (37.0-47.0) L 29.9 % (37.0-47.0) L Mean Corpuscular Volume 92 FL (80-99) 91 FL (80-99) Mean Corpuscular Hemoglobin 31.8 PG (27.0-31.0) H 31.7 PG (27.0-31.0) H Mean Corpuscular Hemoglobin Concent 34.5 G/DL (32.0-36.0) 34.7 G/DL (32.0-36.0) Red Cell Distribution Width 11.3 % (11.6-14.8) L 11.0 % (11.6-14.8) L Platelet Count 154 K/UL (150-450) 162 K/UL (150-450) Mean Platelet Volume 9.1 FL (6.5-10.1) 8.4 FL (6.5-10.1) Neutrophils (%) (Auto) 56.8 % (45.0-75.0) 69.2 % (45.0-75.0) Lymphocytes (%) (Auto) 30.4 % (20.0-45.0) 19.2 % (20.0-45.0) L Monocytes (%) (Auto) 8.6 % (1.0-10.0) 7.7 % (1.0-10.0) Eosinophils (%) (Auto) 3.1 % (0.0-3.0) H 2.9 % (0.0-3.0) Basophils (%) (Auto) 1.2 % (0.0-2.0) 1.1 % (0.0-2.0) Differential Total Cells Counted 100 Neutrophils % (Manual) 50 % (45-75) Lymphocytes % (Manual) 36 % (20-45) Monocytes % (Manual) 4 % (1-10) Eosinophils % (Manual) 10 % (0-3) H Basophils % (Manual) 0 % (0-2) Band Neutrophils 0 % (0-8) Platelet Estimate Adequate Platelet Morphology Normal Hypochromasia 1+ Anisocytosis 1+ Ferritin 188 ng/mL (13-150) H Vancomycin Level Trough 11.7 ug/mL (5.0-12.0) Sodium Level 139 mEQ/L (135-145) Potassium Level 4.4 mEQ/L (3.4-4.9) Chloride Level 100 mEQ/L (98-107) Carbon Dioxide Level 28 mEQ/L (20-30) Anion Gap 11 (5-15) Blood Urea Nitrogen 13 mg/dL (7-23) Creatinine 0.8 mg/dL (0.5-0.9) Estimat Glomerular Filtration Rate > 60 mL/min (>60) Glucose Level 215 mg/dL (74-106) H Uric Acid 5.0 mg/dL (3.0-7.5) Calcium Level 9.6 mg/dL (8.6-10.2) Phosphorus Level 3.9 mg/dL (2.5-4.8) Magnesium Level 1.7 mg/dL (1.7-2.5) Iron Level 83 ug/dL (37-145) Total Iron Binding Capacity 233 ug/dL (250-400) L Percent Iron Saturation 36 % (15-50) Unsaturated Iron Binding 150 ug/dL (112-346) Total Bilirubin 0.3 mg/dL (0.0-1.2) Gamma Glutamyl Transpeptidase 22 U/L (5-36) Aspartate Amino Transf (AST/SGOT) 10 U/L (5-40) Alanine Aminotransferase (ALT/SGPT) 7 U/L (3-33) Alkaline Phosphatase 88 U/L (35-104) Total Creatine Kinase 38 U/L (26-140) C-Reactive Protein, Quantitative 1.3 mg/dL (< 0.5) H Pro-B-Type Natriuretic Peptide 567 pg/mL (0-125) H Total Protein 6.9 g/dL (6.6-8.7) Albumin 3.5 g/dL (3.5-5.2) Globulin 3.4 g/dL Albumin/Globulin Ratio 1.0 (1.0-2.7) Vitamin B12 Level 324 pg/mL (211-946) Folate Pending Thyroid Stimulating Hormone (TSH) 2.310 uIU/mL (0.300-4.500) Microbiology Date/Time Source Procedure Growth Status 09/20/16 09:16 Blood Blood Culture - Preliminary NO GROWTH AFTER 24 HOURS Resulted Exam Narrative Mild increase in erythema and edema. No open wound or drainage noted MRI 1/25/17: Impression: No definite findings to suggest acute osteomyelitis Foci of equivocal subtle increased STIR signal within the first, fourth, and fifth digits as described above. Suspect artifactual or possibly on the basis of mild reactive edema. Early osteomyelitis doubted but not completely excludable. Correlate with clinical findings Equivocal subtle increased STIR and decreased T1 signal within the fourth proximal phalanx. Again, could be artifactual, but early osteomyelitis is not completely excludable. Correlate with clinical findings Evidence of soft tissue edema. No definite drainable abscess Equivocal focal low signal in the fifth digit soft tissues which, if real, could represent the foreign body described on recent plain radiographs. Mango Vitale DPM Sep 22, 2016 10:51
--- NOTE | 2016-09-22 11:51 | General Progress Note ---
Assessment/Plan Problem List: (1) Diabetes ICD Codes: E11.9 - Type 2 diabetes mellitus without complications SNOMED: 42542201 Qualifiers: Qualified Codes: E11.628 - Type 2 diabetes mellitus with other skin complications (2) Cellulitis ICD Codes: L03.90 - Cellulitis, unspecified SNOMED: 557600310 Qualifiers: Qualified Codes: L03.116 - Cellulitis of left lower limb (3) HTN (hypertension) ICD Codes: I10 - Essential (primary) hypertension SNOMED: 28958167 (4) Cellulitis of left foot ICD Codes: L03.116 - Cellulitis of left lower limb SNOMED: 684990598 Status: progressing Assessment/Plan afebrile celluitis lower extremity treatment per id and podiatry both have been consulted vitals stable Subjective ROS Limited/Unobtainable: Yes Constitutional: Reports: no symptoms Allergies: Coded Allergies: No Known Allergies (Unverified , 09/14/16) Objective Last 24 Hour Vital Signs Date Time Temp Pulse Resp B/P Pulse Ox O2 Delivery O2 Flow Rate FiO2 09/22/16 08:30 155/81 09/22/16 08:00 97.5 63 22 154/76 100 09/22/16 04:00 97.5 60 21 152/74 96 Room Air 09/22/16 00:00 97.3 66 21 145/88 97 Room Air 09/21/16 19:00 97.5 69 18 148/74 97 Room Air 09/21/16 17:21 145/82 09/21/16 16:00 97.4 90 18 150/82 98 Intake and Output 09/21/16 09/22/16 19:00 07:00 Intake Total 100 ml Balance 100 ml IV Total 100 ml # Voids 2 Laboratory Tests 09/21/16 20:20: White Blood Count 6.2, Red Blood Count 2.96L, Hemoglobin 9.4L, Hematocrit 27.3L , Mean Corpuscular Volume 92, Mean Corpuscular Hemoglobin 31.8H, Mean Corpuscular Hemoglobin Concent 34.5, Red Cell Distribution Width 11.3L, Platelet Count 154, Mean Platelet Volume 9.1, Neutrophils (%) (Auto) 56.8, Lymphocytes (%) (Auto) 30.4, Monocytes (%) (Auto) 8.6, Eosinophils (%) (Auto) 3.1H, Basophils (%) (Auto) 1.2, Differential Total Cells Counted 100, Neutrophils % (Manual) 50, Lymphocytes % (Manual) 36, Monocytes % (Manual) 4, Eosinophils % (Manual) 10H, Basophils % (Manual) 0, Band Neutrophils 0, Platelet Estimate Adequate, Platelet Morphology Normal, Hypochromasia 1+, Anisocytosis 1+, Ferritin 188H, Vancomycin Level Trough 11.7 09/22/16 07:55: White Blood Count 6.3, Red Blood Count 3.27L, Hemoglobin 10.4L, Hematocrit 29.9L , Mean Corpuscular Volume 91, Mean Corpuscular Hemoglobin 31.7H, Mean Corpuscular Hemoglobin Concent 34.7, Red Cell Distribution Width 11.0L, Platelet Count 162, Mean Platelet Volume 8.4, Neutrophils (%) (Auto) 69.2, Lymphocytes (%) (Auto) 19.2L, Monocytes (%) (Auto) 7.7, Eosinophils (%) (Auto) 2.9, Basophils (%) (Auto) 1.1, Sodium Level 139, Potassium Level 4.4, Chloride Level 100, Carbon Dioxide Level 28, Anion Gap 11, Blood Urea Nitrogen 13, Creatinine 0.8, Estimat Glomerular Filtration Rate > 60, Glucose Level 215H, Uric Acid 5.0, Calcium Level 9.6, Phosphorus Level 3.9, Magnesium Level 1.7, Iron Level 83, Total Iron Binding Capacity 233L, Percent Iron Saturation 36, Unsaturated Iron Binding 150, Total Bilirubin 0.3, Gamma Glutamyl Transpeptidase 22, Aspartate Amino Transf (AST/SGOT) 10, Alanine Aminotransferase (ALT/SGPT) 7, Alkaline Phosphatase 88, Total Creatine Kinase 38 , C-Reactive Protein, Quantitative 1.3H, Pro-B-Type Natriuretic Peptide 567H, Total Protein 6.9, Albumin 3.5, Globulin 3.4, Albumin/Globulin Ratio 1.0, Vitamin B12 Level 324, Folate [Pending], Thyroid Stimulating Hormone (TSH) 2.310 Height (Feet): 5 Height (Inches): 4.00 Weight (Pounds): 153 EENT: PERRL/EOMI Neck: supple Cardiovascular: normal rate Respiratory/Chest: lungs clear Pauline Rhodes MD Sep 22, 2016 11:51
[2016-09-22 12:00] VITALS: BP 173/83
[2016-09-22] MEDS ORDERED: HydrALAZINE 25mg tab ORAL PRN (12:15)
--- NOTE | 2016-09-22 12:15 | General Progress Note ---
Assessment/Plan Status: unchanged Assessment/Plan status: (1) Acute foreign body of foot (2) Cellulitis of left foot (3) Diabetes mellitus (4) HTN (hypertension) (5) Anemia Plan: BP and BS control- adjust BP meds- Antibiotics- Surgical eval per orders- Subjective ROS Limited/Unobtainable: No Constitutional: Reports: malaise Allergies: Coded Allergies: No Known Allergies (Unverified , 09/14/16) Objective Last 24 Hour Vital Signs Date Time Temp Pulse Resp B/P Pulse Ox O2 Delivery O2 Flow Rate FiO2 09/22/16 08:30 155/81 09/22/16 08:00 97.5 63 22 154/76 100 09/22/16 04:00 97.5 60 21 152/74 96 Room Air 09/22/16 00:00 97.3 66 21 145/88 97 Room Air 09/21/16 19:00 97.5 69 18 148/74 97 Room Air 09/21/16 17:21 145/82 09/21/16 16:00 97.4 90 18 150/82 98 Intake and Output 09/21/16 09/22/16 19:00 07:00 Intake Total 100 ml Balance 100 ml IV Total 100 ml # Voids 2 Laboratory Tests 09/21/16 20:20: White Blood Count 6.2, Red Blood Count 2.96L, Hemoglobin 9.4L, Hematocrit 27.3L , Mean Corpuscular Volume 92, Mean Corpuscular Hemoglobin 31.8H, Mean Corpuscular Hemoglobin Concent 34.5, Red Cell Distribution Width 11.3L, Platelet Count 154, Mean Platelet Volume 9.1, Neutrophils (%) (Auto) 56.8, Lymphocytes (%) (Auto) 30.4, Monocytes (%) (Auto) 8.6, Eosinophils (%) (Auto) 3.1H, Basophils (%) (Auto) 1.2, Differential Total Cells Counted 100, Neutrophils % (Manual) 50, Lymphocytes % (Manual) 36, Monocytes % (Manual) 4, Eosinophils % (Manual) 10H, Basophils % (Manual) 0, Band Neutrophils 0, Platelet Estimate Adequate, Platelet Morphology Normal, Hypochromasia 1+, Anisocytosis 1+, Ferritin 188H, Vancomycin Level Trough 11.7 09/22/16 07:55: White Blood Count 6.3, Red Blood Count 3.27L, Hemoglobin 10.4L, Hematocrit 29.9L , Mean Corpuscular Volume 91, Mean Corpuscular Hemoglobin 31.7H, Mean Corpuscular Hemoglobin Concent 34.7, Red Cell Distribution Width 11.0L, Platelet Count 162, Mean Platelet Volume 8.4, Neutrophils (%) (Auto) 69.2, Lymphocytes (%) (Auto) 19.2L, Monocytes (%) (Auto) 7.7, Eosinophils (%) (Auto) 2.9, Basophils (%) (Auto) 1.1, Sodium Level 139, Potassium Level 4.4, Chloride Level 100, Carbon Dioxide Level 28, Anion Gap 11, Blood Urea Nitrogen 13, Creatinine 0.8, Estimat Glomerular Filtration Rate > 60, Glucose Level 215H, Uric Acid 5.0, Calcium Level 9.6, Phosphorus Level 3.9, Magnesium Level 1.7, Iron Level 83, Total Iron Binding Capacity 233L, Percent Iron Saturation 36, Unsaturated Iron Binding 150, Total Bilirubin 0.3, Gamma Glutamyl Transpeptidase 22, Aspartate Amino Transf (AST/SGOT) 10, Alanine Aminotransferase (ALT/SGPT) 7, Alkaline Phosphatase 88, Total Creatine Kinase 38 , C-Reactive Protein, Quantitative 1.3H, Pro-B-Type Natriuretic Peptide 567H, Total Protein 6.9, Albumin 3.5, Globulin 3.4, Albumin/Globulin Ratio 1.0, Vitamin B12 Level 324, Folate [Pending], Thyroid Stimulating Hormone (TSH) 2.310 Height (Feet): 5 Height (Inches): 4.00 Weight (Pounds): 153 General Appearance: no apparent distress Objective PE not changed GUI QUEVEDO Sep 22, 2016 12:15
--- NOTE | 2016-09-22 12:57 | General Progress Note ---
Assessment/Plan Assessment/Plan ASSESSMENT: 1. Anemia secondary to chronic disease. 2. Anemia 2/2 iron deficiency, begin ferrous sulfate 3. Left foot cellulitis with foreign body in fourth toe. 4. Cellulitis of left foot. 5. Diabetes mellitus. 6. Hypertension. RECOMMENDATIONS: 1. Monitor counts. 2. Begin ferrous sulfate and vitamin c. 3. Peripheral smear ordered. 4. Continue abx per ID service. 5. Pain control. 6. DVT ppx w heparin sq 7. GI prophylaxis as needed. 8. Discussed with staff. Thank you, Bogdan Tidwell MD Subjective Constitutional: Reports: no symptoms HEENT: Reports: no symptoms Cardiovascular: Reports: no symptoms Respiratory: Reports: no symptoms Gastrointestinal/Abdominal: Reports: poor appetite Genitourinary: Reports: no symptoms Neurologic/Psychiatric: Reports: no symptoms Endocrine: Reports: no symptoms Hematologic/Lymphatic: Reports: anemia Allergies: Coded Allergies: No Known Allergies (Unverified , 09/14/16) Subjective alert and oriented, no fevers or chills, no ns Objective Last 24 Hour Vital Signs Date Time Temp Pulse Resp B/P Pulse Ox O2 Delivery O2 Flow Rate FiO2 09/22/16 08:30 155/81 09/22/16 08:00 97.5 63 22 154/76 100 09/22/16 04:00 97.5 60 21 152/74 96 Room Air 09/22/16 00:00 97.3 66 21 145/88 97 Room Air 09/21/16 19:00 97.5 69 18 148/74 97 Room Air 09/21/16 17:21 145/82 09/21/16 16:00 97.4 90 18 150/82 98 Intake and Output 09/21/16 09/22/16 19:00 07:00 Intake Total 100 ml Balance 100 ml IV Total 100 ml # Voids 2 Laboratory Tests 09/21/16 20:20: White Blood Count 6.2, Red Blood Count 2.96L, Hemoglobin 9.4L, Hematocrit 27.3L , Mean Corpuscular Volume 92, Mean Corpuscular Hemoglobin 31.8H, Mean Corpuscular Hemoglobin Concent 34.5, Red Cell Distribution Width 11.3L, Platelet Count 154, Mean Platelet Volume 9.1, Neutrophils (%) (Auto) 56.8, Lymphocytes (%) (Auto) 30.4, Monocytes (%) (Auto) 8.6, Eosinophils (%) (Auto) 3.1H, Basophils (%) (Auto) 1.2, Differential Total Cells Counted 100, Neutrophils % (Manual) 50, Lymphocytes % (Manual) 36, Monocytes % (Manual) 4, Eosinophils % (Manual) 10H, Basophils % (Manual) 0, Band Neutrophils 0, Platelet Estimate Adequate, Platelet Morphology Normal, Hypochromasia 1+, Anisocytosis 1+, Ferritin 188H, Vancomycin Level Trough 11.7 09/22/16 07:55: White Blood Count 6.3, Red Blood Count 3.27L, Hemoglobin 10.4L, Hematocrit 29.9L , Mean Corpuscular Volume 91, Mean Corpuscular Hemoglobin 31.7H, Mean Corpuscular Hemoglobin Concent 34.7, Red Cell Distribution Width 11.0L, Platelet Count 162, Mean Platelet Volume 8.4, Neutrophils (%) (Auto) 69.2, Lymphocytes (%) (Auto) 19.2L, Monocytes (%) (Auto) 7.7, Eosinophils (%) (Auto) 2.9, Basophils (%) (Auto) 1.1, Sodium Level 139, Potassium Level 4.4, Chloride Level 100, Carbon Dioxide Level 28, Anion Gap 11, Blood Urea Nitrogen 13, Creatinine 0.8, Estimat Glomerular Filtration Rate > 60, Glucose Level 215H, Uric Acid 5.0, Calcium Level 9.6, Phosphorus Level 3.9, Magnesium Level 1.7, Iron Level 83, Total Iron Binding Capacity 233L, Percent Iron Saturation 36, Unsaturated Iron Binding 150, Total Bilirubin 0.3, Gamma Glutamyl Transpeptidase 22, Aspartate Amino Transf (AST/SGOT) 10, Alanine Aminotransferase (ALT/SGPT) 7, Alkaline Phosphatase 88, Total Creatine Kinase 38 , C-Reactive Protein, Quantitative 1.3H, Pro-B-Type Natriuretic Peptide 567H, Total Protein 6.9, Albumin 3.5, Globulin 3.4, Albumin/Globulin Ratio 1.0, Vitamin B12 Level 324, Folate [Pending], Thyroid Stimulating Hormone (TSH) 2.310 Height (Feet): 5 Height (Inches): 4.00 Weight (Pounds): 153 General Appearance: no apparent distress EENT: TMs normal Neck: supple Cardiovascular: regular rhythm Respiratory/Chest: normal breath sounds Abdomen: soft Extremities: non-tender Edema: 1+ Leg (L), 1+ Leg (R) Edema: mild edema Neurologic: oriented x 3 Skin: warm/dry Bogdan Tidwell Sep 22, 2016 12:57
[2016-09-22 13:52] VITALS: BP 157/73
[2016-09-22 16:00] VITALS: BP 147/70
--- NOTE | 2016-09-22 17:42 | Infectious Diseases Prog Note ---
Assessment/Plan Problems: (1) Acute foreign body of foot Assessment & Plan: falafel cart cook is consulted for removal, will continue wide spectrum antibiotics (2) Cellulitis of left foot Assessment & Plan: with possible underlying osteomyelitis , will continue vancomycin, metronidazole and cefepime empirically , MRI was suggestive of osteomyelitis, will need 4-6 weeks of antibiotics therapy (3) Diabetes mellitus Assessment & Plan: recommend tight glycemic control to keep blood glucose between 80-120 (4) HTN (hypertension) Assessment & Plan: continue meds to keep BP <140 Subjective Musculoskeletal: Reports: pain, swelling Allergies: Coded Allergies: No Known Allergies (Unverified , 09/14/16) All Systems: reviewed and negative except above Subjective less redness on the foot and less swelling , no fever Objective Vital Signs Last 24 Hour Vital Signs Date Time Temp Pulse Resp B/P Pulse Ox O2 Delivery O2 Flow Rate FiO2 09/22/16 16:00 97.7 66 18 147/70 97 Room Air 09/22/16 13:52 157/73 09/22/16 12:00 97.2 65 24 173/83 97 09/22/16 08:30 155/81 09/22/16 08:00 97.5 63 22 154/76 100 09/22/16 04:00 97.5 60 21 152/74 96 Room Air 09/22/16 00:00 97.3 66 21 145/88 97 Room Air 09/21/16 19:00 97.5 69 18 148/74 97 Room Air Height (Feet): 5 Height (Inches): 4.00 Weight (Pounds): 153 General Appearance: WD/WN, no acute distress HEENT: normocephalic, atraumatic, anicteric, mucous membranes moist Respiratory/Chest: chest wall non-tender, lungs clear, normal breath sounds, no respiratory distress, no accessory muscle use Cardiovascular: normal peripheral pulses, normal rate, regular rhythm, no gallop/murmur Abdomen: normal bowel sounds, soft, non tender, no organomegaly, non distended , no mass, no scars Extremities: no cyanosis, no clubbing, other - left dorsal foot edema with mild redness Skin: no rash, no lesions, no ulcers Microbiology Date/Time Source Procedure Growth Status 09/20/16 09:16 Blood Blood Culture - Preliminary NO GROWTH AFTER 24 HOURS Resulted 09/20/16 08:55 Blood Blood Culture - Preliminary NO GROWTH AFTER 24 HOURS Resulted Laboratory Tests Test 09/21/16 20:20 09/22/16 07:55 White Blood Count 6.2 K/UL (4.8-10.8) 6.3 K/UL (4.8-10.8) Red Blood Count 2.96 M/UL (4.20-5.40) L 3.27 M/UL (4.20-5.40) L Hemoglobin 9.4 G/DL (12.0-16.0) L 10.4 G/DL (12.0-16.0) L Hematocrit 27.3 % (37.0-47.0) L 29.9 % (37.0-47.0) L Mean Corpuscular Volume 92 FL (80-99) 91 FL (80-99) Mean Corpuscular Hemoglobin 31.8 PG (27.0-31.0) H 31.7 PG (27.0-31.0) H Mean Corpuscular Hemoglobin Concent 34.5 G/DL (32.0-36.0) 34.7 G/DL (32.0-36.0) Red Cell Distribution Width 11.3 % (11.6-14.8) L 11.0 % (11.6-14.8) L Platelet Count 154 K/UL (150-450) 162 K/UL (150-450) Mean Platelet Volume 9.1 FL (6.5-10.1) 8.4 FL (6.5-10.1) Neutrophils (%) (Auto) 56.8 % (45.0-75.0) 69.2 % (45.0-75.0) Lymphocytes (%) (Auto) 30.4 % (20.0-45.0) 19.2 % (20.0-45.0) L Monocytes (%) (Auto) 8.6 % (1.0-10.0) 7.7 % (1.0-10.0) Eosinophils (%) (Auto) 3.1 % (0.0-3.0) H 2.9 % (0.0-3.0) Basophils (%) (Auto) 1.2 % (0.0-2.0) 1.1 % (0.0-2.0) Differential Total Cells Counted 100 Neutrophils % (Manual) 50 % (45-75) Lymphocytes % (Manual) 36 % (20-45) Monocytes % (Manual) 4 % (1-10) Eosinophils % (Manual) 10 % (0-3) H Basophils % (Manual) 0 % (0-2) Band Neutrophils 0 % (0-8) Platelet Estimate Adequate Platelet Morphology Normal Hypochromasia 1+ Anisocytosis 1+ Ferritin 188 ng/mL (13-150) H Vancomycin Level Trough 11.7 ug/mL (5.0-12.0) Sodium Level 139 mEQ/L (135-145) Potassium Level 4.4 mEQ/L (3.4-4.9) Chloride Level 100 mEQ/L (98-107) Carbon Dioxide Level 28 mEQ/L (20-30) Anion Gap 11 (5-15) Blood Urea Nitrogen 13 mg/dL (7-23) Creatinine 0.8 mg/dL (0.5-0.9) Estimat Glomerular Filtration Rate > 60 mL/min (>60) Glucose Level 215 mg/dL (74-106) H Uric Acid 5.0 mg/dL (3.0-7.5) Calcium Level 9.6 mg/dL (8.6-10.2) Phosphorus Level 3.9 mg/dL (2.5-4.8) Magnesium Level 1.7 mg/dL (1.7-2.5) Iron Level 83 ug/dL (37-145) Total Iron Binding Capacity 233 ug/dL (250-400) L Percent Iron Saturation 36 % (15-50) Unsaturated Iron Binding 150 ug/dL (112-346) Total Bilirubin 0.3 mg/dL (0.0-1.2) Gamma Glutamyl Transpeptidase 22 U/L (5-36) Aspartate Amino Transf (AST/SGOT) 10 U/L (5-40) Alanine Aminotransferase (ALT/SGPT) 7 U/L (3-33) Alkaline Phosphatase 88 U/L (35-104) Total Creatine Kinase 38 U/L (26-140) C-Reactive Protein, Quantitative 1.3 mg/dL (< 0.5) H Pro-B-Type Natriuretic Peptide 567 pg/mL (0-125) H Total Protein 6.9 g/dL (6.6-8.7) Albumin 3.5 g/dL (3.5-5.2) Globulin 3.4 g/dL Albumin/Globulin Ratio 1.0 (1.0-2.7) Vitamin B12 Level 324 pg/mL (211-946) Folate Pending Thyroid Stimulating Hormone (TSH) 2.310 uIU/mL (0.300-4.500) Current Medications Medications (Trade) Dose Ordered Sig/Jesse Route PRN Reason Start Time Stop Time Status Last Admin Dose Admin Acetaminophen/ Hydrocodone Bitart ([place] 5/325) 1 tab Q4H PRN ORAL Moderate Pain (Pain Scale 4-6) 09/20/16 20:45 09/27/16 20:44 09/21/16 16:02 Cefepime HCl/ Dextrose (Maxipime/D5W) 55 ml @ 110 mls/hr Q12HR@0600,1800 IVPB 09/21/16 18:00 09/28/16 17:59 09/22/16 05:46 Dextrose (Dextrose 50%) STAT PRN IV Hypoglycemia 09/20/16 20:45 10/20/16 20:44 Heparin Sodium (Porcine) 5000 units 5,000 units Q12HR SUBQ 09/21/16 10:00 10/21/16 09:59 09/22/16 08:35 Hydralazine HCl (Apresoline) 25 mg Q6H PRN ORAL bp over 165 syst 09/22/16 12:15 10/22/16 12:14 Insulin Aspart (NovoLOG) BEFORE MEALS AND HS SUBQ 09/20/16 22:00 10/20/16 21:59 09/22/16 12:48 Lisinopril (Prinivil) 20 mg BID ORAL 09/22/16 18:00 10/22/16 17:59 Metformin HCl (Glucophage) 500 mg TIPC ORAL 09/22/16 13:00 10/22/16 12:59 09/22/16 13:27 Metronidazole 100 ml @ 100 mls/hr Q8H IV 09/21/16 17:00 09/28/16 16:59 09/22/16 16:57 Ondansetron HCl (Zofran) 4 mg Q6H PRN IVP Nausea & Vomiting 09/20/16 20:45 10/20/16 20:44 Vancomycin HCl 1 ea 1 ea DAILY PRN MISC PRN RX PROTOCOL 09/20/16 17:30 10/20/16 17:29 Vancomycin HCl/ Dextrose (Vancomycin/D5W) 275 ml @ 183.708 mls/hr Q12H IVPB 09/20/16 21:00 09/25/16 20:59 09/22/16 10:07 Mino Paz M.D. Sep 22, 2016 17:42
[2016-09-22] MEDS: Lisinopril 20mg tab ORAL SCH (17:52)
[2016-09-23] MEDS: Flagyl 500mg/NS 100ml Pre-Mix IV SCH ×3 (00:48→18:19)
[2016-09-23 04:00] VITALS: BP 158/79
[2016-09-23] MEDS ORDERED: Aztreonam Inj 1 GM in D5W 55 ML IVPB SCH (06:00)
[2016-09-23] MEDS: NovoLOG Insulin Flexpen SUBQ SCH ×4 (06:12→21:00)
[2016-09-23 07:37] VITALS: BP 141/78
[2016-09-23] MEDS: Lisinopril 20mg tab ORAL SCH ×2 (09:01→17:13)
--- NOTE | 2016-09-23 09:01 | General Progress Note ---
Assessment/Plan Assessment/Plan ASSESSMENT: 1. Anemia secondary to chronic disease. 2. Lymphopenia 2/2 infection likely 3. Left foot cellulitis with foreign body in fourth toe. 4. Cellulitis of left foot. 5. Diabetes mellitus. 6. Hypertension. RECOMMENDATIONS: 1. Monitor counts. 2. Have discontinued ferrous sulf/vit C 3. Peripheral smear reviewed 4. Continue abx per ID service. 5. Pain control. 6. DVT ppx w heparin sq 7. GI prophylaxis as needed. 8. Discussed with staff. Thank you, Bogdan Tidwell MD Subjective Constitutional: Reports: no symptoms HEENT: Reports: no symptoms Cardiovascular: Reports: no symptoms Respiratory: Reports: no symptoms Gastrointestinal/Abdominal: Reports: poor appetite Genitourinary: Reports: no symptoms Neurologic/Psychiatric: Reports: no symptoms Endocrine: Reports: no symptoms Hematologic/Lymphatic: Reports: anemia Allergies: Coded Allergies: No Known Allergies (Unverified , 09/14/16) Subjective alert and oriented, no fevers or chills, no hematochezia or hematemesis Objective Last 24 Hour Vital Signs Date Time Temp Pulse Resp B/P Pulse Ox O2 Delivery O2 Flow Rate FiO2 09/23/16 07:37 97.9 64 14 141/78 97 Room Air 09/23/16 04:00 97.0 65 20 158/79 99 Room Air 09/22/16 17:52 147/70 09/22/16 16:00 97.7 66 18 147/70 97 Room Air 09/22/16 13:52 157/73 09/22/16 12:00 97.2 65 24 173/83 97 Intake and Output 09/22/16 09/23/16 19:00 07:00 Intake Total 620 ml 100 ml Balance 620 ml 100 ml Intake Oral 620 ml IV Total 100 ml # Voids 3 2 Height (Feet): 5 Height (Inches): 4.00 Weight (Pounds): 153 General Appearance: no apparent distress EENT: TMs normal Neck: normal inspection Cardiovascular: regular rhythm Respiratory/Chest: lungs clear Genitourinary/Rectal: heme negative stool Extremities: non-tender Edema: 1+ Leg (L), 1+ Leg (R) Edema: mild edema Skin: warm/dry Bogdan Tidwell Sep 23, 2016 09:01
[2016-09-23] MEDS: metFORMIN 500mg tab ORAL SCH ×3 (09:02→17:13)
[2016-09-23] MEDS: Heparin 5000 units/ml inj SUBQ SCH ×2 (09:03→21:07)
--- NOTE | 2016-09-23 09:18 | Podiatric Progress Note ---
Assessment/Plan Patient Anju Clemons is a 61 year old female who was admitted on Sep 20, 2016 at 08: 59 with left foot cellulitis secondary to retained foreign body Problems: (1) Cellulitis of left foot (2) Acute foreign body of foot (3) Diabetes mellitus Assessment/Plan - Surgery tentatively scheduled for Monday09/26/16. Spoke to OR rn lpn lvn who will work on placing the patient on the schedule - Continue IV antibiotics per infectious disease specialist recommendations - Continue to elevate the left leg on two pillows and use an keerthi wrap for edema management - Non weight bearing left foot Subjective Reason for consult Left foot foreign body with cellulitis Allergies: Coded Allergies: No Known Allergies (Unverified , 09/14/16) Subjective Patient states she vomited once last night and was experiencing chills Objective Exam Last 24 Hour Vital Signs Date Time Temp Pulse Resp B/P Pulse Ox O2 Delivery O2 Flow Rate FiO2 09/23/16 09:01 141/78 09/23/16 07:37 97.9 64 14 141/78 97 Room Air 09/23/16 04:00 97.0 65 20 158/79 99 Room Air 09/22/16 17:52 147/70 09/22/16 16:00 97.7 66 18 147/70 97 Room Air 09/22/16 13:52 157/73 09/22/16 12:00 97.2 65 24 173/83 97 Microbiology Date/Time Source Procedure Growth Status 09/20/16 09:16 Blood Blood Culture - Preliminary NO GROWTH AFTER 48 HOURS Resulted Exam Narrative Mild improvement in erythema and edema IMAGING: LEFT FOOT MRI Impression: No definite findings to suggest acute osteomyelitis Foci of equivocal subtle increased STIR signal within the first, fourth, and fifth digits as described above. Suspect artifactual or possibly on the basis of mild reactive edema. Early osteomyelitis doubted but not completely excludable. Correlate with clinical findings Equivocal subtle increased STIR and decreased T1 signal within the fourth proximalphalanx. Again, could be artifactual, but early osteomyelitis is not completely excludable. Correlate with clinical findings Evidence of soft tissue edema. No definite drainable abscess Equivocal focal low signal in the fifth digit soft tissues which, if real, could represent the foreign body described on recent plain radiographs. Mango Vitale DPM Sep 23, 2016 09:18
[2016-09-23] MEDS: Vancomycin 750mg/D5W 275ml IVPB SCH ×4 (09:44→21:05)
[2016-09-23 11:55] VITALS: BP 162/76
[2016-09-23] MEDS: Norco 5mg/325mg tab ORAL PRN (12:07)
[2016-09-23] MEDS: D5W IV SCH (12:52)
[2016-09-23] MEDS: CEFTAZIDIME IV SCH (12:52)
[2016-09-23] MEDS ORDERED: cefTRIAXone 2gm/D5W 110ml IVPB SCH ×2 (13:00)
--- NOTE | 2016-09-23 13:49 | General Progress Note ---
Assessment/Plan Status: stable - from renal stand Assessment/Plan status: (1) Acute foreign body of foot (2) Cellulitis of left foot (3) Diabetes mellitus (4) HTN (hypertension) (5) Anemia Plan: BP and BS control- adjust BP meds- Antibiotics- Surgical eval per orders- Subjective ROS Limited/Unobtainable: No Allergies: Coded Allergies: No Known Allergies (Unverified , 09/14/16) Objective Last 24 Hour Vital Signs Date Time Temp Pulse Resp B/P Pulse Ox O2 Delivery O2 Flow Rate FiO2 09/23/16 11:55 97.9 60 15 162/76 97 Room Air 09/23/16 09:01 141/78 09/23/16 07:37 97.9 64 14 141/78 97 Room Air 09/23/16 04:00 97.0 65 20 158/79 99 Room Air 09/22/16 17:52 147/70 09/22/16 16:00 97.7 66 18 147/70 97 Room Air 09/22/16 13:52 157/73 Intake and Output 09/22/16 09/23/16 19:00 07:00 Intake Total 620 ml 100 ml Balance 620 ml 100 ml Intake Oral 620 ml IV Total 100 ml # Voids 3 2 Height (Feet): 5 Height (Inches): 4.00 Weight (Pounds): 153 General Appearance: no apparent distress Objective PE not changed GUI QUEVEDO Sep 23, 2016 13:49
--- NOTE | 2016-09-23 14:13 | General Progress Note ---
Assessment/Plan Problem List: (1) Diabetes ICD Codes: E11.9 - Type 2 diabetes mellitus without complications SNOMED: 47385782 Qualifiers: Qualified Codes: E11.628 - Type 2 diabetes mellitus with other skin complications (2) Cellulitis ICD Codes: L03.90 - Cellulitis, unspecified SNOMED: 128256490 Qualifiers: Qualified Codes: L03.116 - Cellulitis of left lower limb (3) HTN (hypertension) ICD Codes: I10 - Essential (primary) hypertension SNOMED: 93598019 (4) Cellulitis of left foot ICD Codes: L03.116 - Cellulitis of left lower limb SNOMED: 841815915 Status: progressing Assessment/Plan afebrile vitals stable clinically improving dm cellulitis le improving Subjective ROS Limited/Unobtainable: Yes Constitutional: Reports: no symptoms Allergies: Coded Allergies: No Known Allergies (Unverified , 09/14/16) Objective Last 24 Hour Vital Signs Date Time Temp Pulse Resp B/P Pulse Ox O2 Delivery O2 Flow Rate FiO2 09/23/16 11:55 97.9 60 15 162/76 97 Room Air 09/23/16 09:01 141/78 09/23/16 07:37 97.9 64 14 141/78 97 Room Air 09/23/16 04:00 97.0 65 20 158/79 99 Room Air 09/22/16 17:52 147/70 09/22/16 16:00 97.7 66 18 147/70 97 Room Air Intake and Output 09/22/16 09/23/16 19:00 07:00 Intake Total 620 ml 100 ml Balance 620 ml 100 ml Intake Oral 620 ml IV Total 100 ml # Voids 3 2 Height (Feet): 5 Height (Inches): 4.00 Weight (Pounds): 153 Neck: supple Cardiovascular: normal rate Respiratory/Chest: lungs clear Pauline Rhodes MD Sep 23, 2016 14:13
[2016-09-23 16:00] VITALS: BP 155/77
[2016-09-23 19:00] VITALS: BP 172/78
--- NOTE | 2016-09-23 19:40 | Infectious Diseases Prog Note ---
Assessment/Plan Problems: (1) Acute foreign body of foot Assessment & Plan: chainer is following for removal, will continue wide spectrum antibiotics (2) Cellulitis of left foot Assessment & Plan: with possible underlying osteomyelitis , will continue vancomycin, metronidazole and ceftazidime empirically , MRI was suggestive of osteomyelitis, will need 4-6 weeks of antibiotics therapy (3) Diabetes mellitus Assessment & Plan: recommend tight glycemic control to keep blood glucose between 80-120 (4) HTN (hypertension) Assessment & Plan: continue meds to keep BP <140 Subjective Musculoskeletal: Reports: pain, swelling Allergies: Coded Allergies: No Known Allergies (Unverified , 09/14/16) All Systems: reviewed and negative except above Subjective less redness on the foot and less swelling , no fever Objective Vital Signs Last 24 Hour Vital Signs Date Time Temp Pulse Resp B/P Pulse Ox O2 Delivery O2 Flow Rate FiO2 09/23/16 18:19 179/86 09/23/16 17:13 155/77 09/23/16 16:00 97.0 62 20 155/77 95 Room Air 09/23/16 15:48 61 163/81 09/23/16 11:55 97.9 60 15 162/76 97 Room Air 09/23/16 09:01 141/78 09/23/16 07:37 97.9 64 14 141/78 97 Room Air 09/23/16 04:00 97.0 65 20 158/79 99 Room Air Height (Feet): 5 Height (Inches): 4.00 Weight (Pounds): 153 General Appearance: WD/WN, no acute distress HEENT: normocephalic, atraumatic, anicteric, mucous membranes moist, PERRL Respiratory/Chest: chest wall non-tender, lungs clear, normal breath sounds, no respiratory distress, no accessory muscle use Cardiovascular: normal peripheral pulses, normal rate, regular rhythm, no gallop/murmur, no JVD Abdomen: normal bowel sounds, soft, non tender, no organomegaly, non distended , no mass, no scars Extremities: no cyanosis, no clubbing, other - left foot dorsal redness Skin: no rash, no lesions, no ulcers Current Medications Medications (Trade) Dose Ordered Sig/Jesse Route PRN Reason Start Time Stop Time Status Last Admin Dose Admin Acetaminophen/ Hydrocodone Bitart ([place] 5/325) 1 tab Q4H PRN ORAL Moderate Pain (Pain Scale 4-6) 09/20/16 20:45 09/27/16 20:44 09/23/16 12:07 Ceftazidime/ Dextrose (Fortaz/D5W) 110 ml @ 220 mls/hr Q12H IV 09/23/16 13:00 09/30/16 12:59 09/23/16 12:52 Dextrose (Dextrose 50%) STAT PRN IV Hypoglycemia 09/20/16 20:45 10/20/16 20:44 Heparin Sodium (Porcine) 5000 units 5,000 units Q12HR SUBQ 09/21/16 10:00 10/21/16 09:59 09/23/16 09:03 Hydralazine HCl 25 mg 25 mg Q6H PRN ORAL bp over 165 syst 09/22/16 12:15 10/22/16 12:14 09/23/16 18:19 Insulin Aspart (NovoLOG) BEFORE MEALS AND HS SUBQ 09/20/16 22:00 10/20/16 21:59 09/23/16 17:14 Lisinopril (Prinivil) 20 mg BID ORAL 09/22/16 18:00 10/22/16 17:59 09/23/16 17:13 Metformin HCl (Glucophage) 500 mg TIPC ORAL 09/22/16 13:00 10/22/16 12:59 09/23/16 17:13 Metronidazole (Flagyl) 100 ml @ 100 mls/hr Q8H IV 09/21/16 17:00 09/28/16 16:59 09/23/16 18:19 Ondansetron HCl (Zofran) 4 mg Q6H PRN IVP Nausea & Vomiting 09/20/16 20:45 10/20/16 20:44 09/23/16 14:09 Vancomycin HCl 1 ea 1 ea DAILY PRN MISC PRN RX PROTOCOL 09/20/16 17:30 10/20/16 17:29 Vancomycin HCl/ Dextrose (Vancomycin/D5W) 275 ml @ 183.708 mls/hr Q12H IVPB 09/20/16 21:00 09/25/16 20:59 09/23/16 09:44 Mino Paz M.D. Sep 23, 2016 19:40
[2016-09-23] MEDS ORDERED: HydrALAZINE 25mg tab ORAL SCH (22:30)
[2016-09-23] MEDS ORDERED: HydrALAZINE 25mg tab ORAL PRN (22:58)
[2016-09-24] MEDS: Flagyl 500mg/NS 100ml Pre-Mix IV SCH ×3 (00:25→16:57)
[2016-09-24] MEDS: HydrALAZINE 25mg tab ORAL SCH ×5 (00:26→21:32)
[2016-09-24] MEDS: D5W IV SCH ×2 (01:27→12:08)
[2016-09-24] MEDS: CEFTAZIDIME IV SCH ×2 (01:27→12:08)
[2016-09-24 04:00] VITALS: BP 155/73
[2016-09-24] MEDS: NovoLOG Insulin Flexpen SUBQ SCH ×4 (05:53→21:16)
[2016-09-24 07:27] LABS: BASOPHILS % (AUTO) 0.8 % (0.0-2.0); EOSINOPHILS % (AUTO) 1.4 % (0.0-3.0); LYMPHOCYTES % (AUTO) 18.4 % (20.0-45.0); MEAN CORPUSCULAR HEMOGLOBIN 31.4 PG (27.0-31.0); MEAN CORPUSCULAR HGB CONC 35.1 G/DL (32.0-36.0); MEAN CORPUSCULAR VOLUME 89 FL (80-99); MEAN PLATELET VOLUME 8.8 FL (6.5-10.1); MONOCYTES % (AUTO) 6.7 % (1.0-10.0); NEUTROPHILS % (AUTO) 72.8 % (45.0-75.0); PLATELET COUNT 157 K/UL (150-450); RED BLOOD COUNT 3.26 M/UL (4.20-5.40); RED CELL DISTRIBUTION WIDTH 10.8 % (11.6-14.8)
[2016-09-24 07:41] LABS: ALANINE AMINOTRANSFERASE 9 U/L (3-33); ALBUMIN/GLOBULIN RATIO 1.2 (1.0-2.7); ANION GAP 12 (5-15); ASPARTATE AMINO TRANSFERASE 14 U/L (5-40); CALCIUM 9.2 mg/dL (8.6-10.2); CARBON DIOXIDE 30 mEQ/L (20-30); CHLORIDE 95 mEQ/L (98-107); CREATININE 0.7 mg/dL (0.5-0.9); CRP QUANT 0.7 mg/dL (< 0.5); GLOMERULAR FILTRATION RATE > 60 mL/min (>60); HEMOLYSIS 3; MAGNESIUM 1.7 mg/dL (1.7-2.5); PHOSPHORUS 3.9 mg/dL (2.5-4.8); POTASSIUM 3.9 mEQ/L (3.4-4.9); SODIUM 137 mEQ/L (135-145); TOTAL PROTEIN 6.2 g/dL (6.6-8.7)
[2016-09-24 08:07] VITALS: BP 157/74
[2016-09-24] MEDS: Heparin 5000 units/ml inj SUBQ SCH ×2 (09:00→20:50)
[2016-09-24] MEDS: Vancomycin 750mg/D5W 275ml IVPB SCH ×2 (10:05)
[2016-09-24] MEDS: metFORMIN 500mg tab ORAL SCH (10:06)
[2016-09-24] MEDS: Lisinopril 20mg tab ORAL SCH ×2 (10:06→19:02)
--- NOTE | 2016-09-24 10:37 | General Progress Note ---
Assessment/Plan Status: unchanged Status Narrative GI Sxs likely due to Flagyl and Metformin Assessment/Plan status: (1) Acute foreign body of foot (2) Cellulitis of left foot (3) Diabetes mellitus (4) HTN (hypertension) (5) Anemia Plan: add hydralazine for bp- add Reglan - BP and BS control- adjust BP meds- Antibiotics- Surgical eval per orders- Subjective ROS Limited/Unobtainable: No Gastrointestinal/Abdominal: Reports: nausea Allergies: Coded Allergies: No Known Allergies (Unverified , 09/14/16) Objective Last 24 Hour Vital Signs Date Time Temp Pulse Resp B/P Pulse Ox O2 Delivery O2 Flow Rate FiO2 09/24/16 10:07 157/74 09/24/16 10:06 157/74 09/24/16 08:07 97.4 63 20 157/74 95 Room Air 09/24/16 05:14 155/73 09/24/16 04:00 97.5 76 18 155/73 97 Room Air 09/24/16 00:26 161/87 09/23/16 19:00 97.9 67 20 172/78 96 Room Air 09/23/16 18:19 179/86 09/23/16 17:13 155/77 09/23/16 16:00 97.0 62 20 155/77 95 Room Air 09/23/16 15:48 61 163/81 09/23/16 11:55 97.9 60 15 162/76 97 Room Air Intake and Output 09/23/16 09/24/16 19:00 07:00 Intake Total 1000 ml 450 ml Balance 1000 ml 450 ml Intake Oral 1000 ml 240 ml IV Total 210 ml # Voids 2 5 Laboratory Tests 09/24/16 06:54: White Blood Count 6.0, Red Blood Count 3.26L, Hemoglobin 10.2L, Hematocrit 29.1L , Mean Corpuscular Volume 89, Mean Corpuscular Hemoglobin 31.4H, Mean Corpuscular Hemoglobin Concent 35.1, Red Cell Distribution Width 10.8L, Platelet Count 157, Mean Platelet Volume 8.8, Neutrophils (%) (Auto) 72.8, Lymphocytes (%) (Auto) 18.4L, Monocytes (%) (Auto) 6.7, Eosinophils (%) (Auto) 1.4, Basophils (%) (Auto) 0.8, Sodium Level 137, Potassium Level 3.9, Chloride Level 95L, Carbon Dioxide Level 30, Anion Gap 12, Blood Urea Nitrogen 8, Creatinine 0.7, Estimat Glomerular Filtration Rate > 60, Glucose Level 165H, Uric Acid 5.0, Calcium Level 9.2, Phosphorus Level 3.9, Magnesium Level 1.7, Total Bilirubin 0.3, Aspartate Amino Transf (AST/SGOT) 14, Alanine Aminotransferase (ALT/SGPT) 9, Alkaline Phosphatase 76, C-Reactive Protein, Quantitative 0.7H, Pro-B-Type Natriuretic Peptide 676H, Total Protein 6.2L, Albumin 3.4L, Globulin 2.8, Albumin/Globulin Ratio 1.2 Height (Feet): 5 Height (Inches): 4.00 Weight (Pounds): 153 General Appearance: no apparent distress Objective PE not changed GUI QUEVEDO Sep 24, 2016 10:37
--- NOTE | 2016-09-24 11:09 | General Progress Note ---
Assessment/Plan Assessment/Plan ASSESSMENT: 1. Anemia secondary to chronic disease. esr 106. does not need iron 2. Lymphopenia 2/2 infection likely 3. Left foot cellulitis with foreign body in fourth toe. 4. Cellulitis of left foot. 5. Diabetes mellitus. 6. Hypertension. RECOMMENDATIONS: 1. Monitor counts. 2. Peripheral smear reviewed 3. Continue abx per ID service. 4. Pain control. 5. DVT ppx w heparin sq 6. GI prophylaxis as needed. 7. Discussed with staff. Thank you, Wilbert Tidwell MD Subjective Constitutional: Reports: no symptoms HEENT: Reports: no symptoms Cardiovascular: Reports: no symptoms Respiratory: Reports: no symptoms Gastrointestinal/Abdominal: Reports: poor appetite Genitourinary: Reports: no symptoms Neurologic/Psychiatric: Reports: no symptoms Endocrine: Reports: no symptoms Hematologic/Lymphatic: Reports: anemia Allergies: Coded Allergies: No Known Allergies (Unverified , 09/14/16) Subjective stable, h/h unchanged, no fevers or chills Objective Last 24 Hour Vital Signs Date Time Temp Pulse Resp B/P Pulse Ox O2 Delivery O2 Flow Rate FiO2 09/24/16 10:07 157/74 09/24/16 10:06 157/74 09/24/16 08:07 97.4 63 20 157/74 95 Room Air 09/24/16 05:14 155/73 09/24/16 04:00 97.5 76 18 155/73 97 Room Air 09/24/16 00:26 161/87 09/23/16 19:00 97.9 67 20 172/78 96 Room Air 09/23/16 18:19 179/86 09/23/16 17:13 155/77 09/23/16 16:00 97.0 62 20 155/77 95 Room Air 09/23/16 15:48 61 163/81 09/23/16 11:55 97.9 60 15 162/76 97 Room Air Intake and Output 09/23/16 09/24/16 19:00 07:00 Intake Total 1000 ml 450 ml Balance 1000 ml 450 ml Intake Oral 1000 ml 240 ml IV Total 210 ml # Voids 2 5 Laboratory Tests 09/24/16 06:54: White Blood Count 6.0, Red Blood Count 3.26L, Hemoglobin 10.2L, Hematocrit 29.1L , Mean Corpuscular Volume 89, Mean Corpuscular Hemoglobin 31.4H, Mean Corpuscular Hemoglobin Concent 35.1, Red Cell Distribution Width 10.8L, Platelet Count 157, Mean Platelet Volume 8.8, Neutrophils (%) (Auto) 72.8, Lymphocytes (%) (Auto) 18.4L, Monocytes (%) (Auto) 6.7, Eosinophils (%) (Auto) 1.4, Basophils (%) (Auto) 0.8, Sodium Level 137, Potassium Level 3.9, Chloride Level 95L, Carbon Dioxide Level 30, Anion Gap 12, Blood Urea Nitrogen 8, Creatinine 0.7, Estimat Glomerular Filtration Rate > 60, Glucose Level 165H, Uric Acid 5.0, Calcium Level 9.2, Phosphorus Level 3.9, Magnesium Level 1.7, Total Bilirubin 0.3, Aspartate Amino Transf (AST/SGOT) 14, Alanine Aminotransferase (ALT/SGPT) 9, Alkaline Phosphatase 76, C-Reactive Protein, Quantitative 0.7H, Pro-B-Type Natriuretic Peptide 676H, Total Protein 6.2L, Albumin 3.4L, Globulin 2.8, Albumin/Globulin Ratio 1.2 Height (Feet): 5 Height (Inches): 4.00 Weight (Pounds): 153 General Appearance: no apparent distress EENT: TMs normal Neck: supple Cardiovascular: regular rhythm Respiratory/Chest: normal breath sounds Abdomen: soft Extremities: non-tender Edema: 1+ Leg (L), 1+ Leg (R) Edema: mild edema Neurologic: alert Skin: warm/dry WILBERT TIDWELL Sep 24, 2016 11:09
--- NOTE | 2016-09-24 11:29 | Diagnostic Imaging Report ---
Indication: Abdominal pain Comparison: None Single view of the abdomen obtained Findings: Bowel gas pattern is nonspecific. There is moderate stool and the colon. No mass, ectopic calcifications, or abnormal gas collections are identified. The bones are unremarkable. Impression: No acute findings
--- NOTE | 2016-09-24 11:39 | General Progress Note ---
Assessment/Plan Problem List: (1) Diabetes ICD Codes: E11.9 - Type 2 diabetes mellitus without complications SNOMED: 57570372 Qualifiers: Qualified Codes: E11.628 - Type 2 diabetes mellitus with other skin complications (2) Cellulitis ICD Codes: L03.90 - Cellulitis, unspecified SNOMED: 627549707 Qualifiers: Qualified Codes: L03.116 - Cellulitis of left lower limb (3) HTN (hypertension) ICD Codes: I10 - Essential (primary) hypertension SNOMED: 50432297 (4) Cellulitis of left foot ICD Codes: L03.116 - Cellulitis of left lower limb SNOMED: 989331423 Status: progressing Assessment/Plan vomited times two consulted gi for vomiting and ordered kub abdomen is soft cellulitis le improving Subjective Gastrointestinal/Abdominal: Reports: vomiting Allergies: Coded Allergies: No Known Allergies (Unverified , 09/14/16) Objective Last 24 Hour Vital Signs Date Time Temp Pulse Resp B/P Pulse Ox O2 Delivery O2 Flow Rate FiO2 09/24/16 10:07 157/74 09/24/16 10:06 157/74 09/24/16 08:07 97.4 63 20 157/74 95 Room Air 09/24/16 05:14 155/73 09/24/16 04:00 97.5 76 18 155/73 97 Room Air 09/24/16 00:26 161/87 09/23/16 19:00 97.9 67 20 172/78 96 Room Air 09/23/16 18:19 179/86 09/23/16 17:13 155/77 09/23/16 16:00 97.0 62 20 155/77 95 Room Air 09/23/16 15:48 61 163/81 09/23/16 11:55 97.9 60 15 162/76 97 Room Air Intake and Output 09/23/16 09/24/16 19:00 07:00 Intake Total 1000 ml 450 ml Balance 1000 ml 450 ml Intake Oral 1000 ml 240 ml IV Total 210 ml # Voids 2 5 Laboratory Tests 09/24/16 06:54: White Blood Count 6.0, Red Blood Count 3.26L, Hemoglobin 10.2L, Hematocrit 29.1L , Mean Corpuscular Volume 89, Mean Corpuscular Hemoglobin 31.4H, Mean Corpuscular Hemoglobin Concent 35.1, Red Cell Distribution Width 10.8L, Platelet Count 157, Mean Platelet Volume 8.8, Neutrophils (%) (Auto) 72.8, Lymphocytes (%) (Auto) 18.4L, Monocytes (%) (Auto) 6.7, Eosinophils (%) (Auto) 1.4, Basophils (%) (Auto) 0.8, Sodium Level 137, Potassium Level 3.9, Chloride Level 95L, Carbon Dioxide Level 30, Anion Gap 12, Blood Urea Nitrogen 8, Creatinine 0.7, Estimat Glomerular Filtration Rate > 60, Glucose Level 165H, Uric Acid 5.0, Calcium Level 9.2, Phosphorus Level 3.9, Magnesium Level 1.7, Total Bilirubin 0.3, Aspartate Amino Transf (AST/SGOT) 14, Alanine Aminotransferase (ALT/SGPT) 9, Alkaline Phosphatase 76, C-Reactive Protein, Quantitative 0.7H, Pro-B-Type Natriuretic Peptide 676H, Total Protein 6.2L, Albumin 3.4L, Globulin 2.8, Albumin/Globulin Ratio 1.2 Height (Feet): 5 Height (Inches): 4.00 Weight (Pounds): 153 Neck: supple Cardiovascular: normal rate Respiratory/Chest: lungs clear Pauline Rhodes MD Sep 24, 2016 11:39
--- NOTE | 2016-09-24 11:46 | Podiatric Progress Note ---
Assessment/Plan Patient Anju Clemons is a 61 year old female who was admitted on Sep 20, 2016 at 08: 59 with left foot cellulitis and retained foreign body Problems: (1) Cellulitis of left foot (2) Acute foreign body of foot (3) Diabetes mellitus Assessment/Plan Left foot erythema, edema, and pain is improving. Patient has one episode of vomiting last night - Continue to elevate, compress with keerthi wrap, use ice pack, and continue non rosas bearing left foot - Surgery is scheduled for Monday. Ordering consent - Continue IV antibiotics per infectious disease specialist recommendations Subjective Reason for consult Left foot cellulitis with retained foreign body Allergies: Coded Allergies: No Known Allergies (Unverified , 09/14/16) Subjective Patient states one episode of vomiting last night. Patient is no longer experiencing chills. Left foot pain has improved Objective Exam Last 24 Hour Vital Signs Date Time Temp Pulse Resp B/P Pulse Ox O2 Delivery O2 Flow Rate FiO2 09/24/16 10:07 157/74 09/24/16 10:06 157/74 09/24/16 08:07 97.4 63 20 157/74 95 Room Air 09/24/16 05:14 155/73 09/24/16 04:00 97.5 76 18 155/73 97 Room Air 09/24/16 00:26 161/87 09/23/16 19:00 97.9 67 20 172/78 96 Room Air 09/23/16 18:19 179/86 09/23/16 17:13 155/77 09/23/16 16:00 97.0 62 20 155/77 95 Room Air 09/23/16 15:48 61 163/81 09/23/16 11:55 97.9 60 15 162/76 97 Room Air Laboratory Tests Test 09/24/16 06:54 White Blood Count 6.0 K/UL (4.8-10.8) Red Blood Count 3.26 M/UL (4.20-5.40) L Hemoglobin 10.2 G/DL (12.0-16.0) L Hematocrit 29.1 % (37.0-47.0) L Mean Corpuscular Volume 89 FL (80-99) Mean Corpuscular Hemoglobin 31.4 PG (27.0-31.0) H Mean Corpuscular Hemoglobin Concent 35.1 G/DL (32.0-36.0) Red Cell Distribution Width 10.8 % (11.6-14.8) L Platelet Count 157 K/UL (150-450) Mean Platelet Volume 8.8 FL (6.5-10.1) Neutrophils (%) (Auto) 72.8 % (45.0-75.0) Lymphocytes (%) (Auto) 18.4 % (20.0-45.0) L Monocytes (%) (Auto) 6.7 % (1.0-10.0) Eosinophils (%) (Auto) 1.4 % (0.0-3.0) Basophils (%) (Auto) 0.8 % (0.0-2.0) Sodium Level 137 mEQ/L (135-145) Potassium Level 3.9 mEQ/L (3.4-4.9) Chloride Level 95 mEQ/L (98-107) L Carbon Dioxide Level 30 mEQ/L (20-30) Anion Gap 12 (5-15) Blood Urea Nitrogen 8 mg/dL (7-23) Creatinine 0.7 mg/dL (0.5-0.9) Estimat Glomerular Filtration Rate > 60 mL/min (>60) Glucose Level 165 mg/dL (74-106) H Uric Acid 5.0 mg/dL (3.0-7.5) Calcium Level 9.2 mg/dL (8.6-10.2) Phosphorus Level 3.9 mg/dL (2.5-4.8) Magnesium Level 1.7 mg/dL (1.7-2.5) Total Bilirubin 0.3 mg/dL (0.0-1.2) Aspartate Amino Transf (AST/SGOT) 14 U/L (5-40) Alanine Aminotransferase (ALT/SGPT) 9 U/L (3-33) Alkaline Phosphatase 76 U/L (35-104) C-Reactive Protein, Quantitative 0.7 mg/dL (< 0.5) H Pro-B-Type Natriuretic Peptide 676 pg/mL (0-125) H Total Protein 6.2 g/dL (6.6-8.7) L Albumin 3.4 g/dL (3.5-5.2) L Globulin 2.8 g/dL Albumin/Globulin Ratio 1.2 (1.0-2.7) Microbiology Date/Time Source Procedure Growth Status 09/20/16 09:16 Blood Blood Culture - Preliminary NO GROWTH AFTER 72 HOURS Resulted Exam Narrative Left foot erythema, edema, and pain with palpation has improved Mango Vitale DPM Sep 24, 2016 11:46
[2016-09-24 12:06] VITALS: BP 151/72
[2016-09-24] MEDS: Nateglinide 60mg tab ORAL SCH ×2 (12:08→16:51)
[2016-09-24] MEDS ORDERED: Tubing IV Secondary IV ONE (13:24)
[2016-09-24] MEDS ORDERED: NS 275ml ONE (13:24)
[2016-09-24 16:08] VITALS: BP 143/75
--- NOTE | 2016-09-24 16:43 | Infectious Diseases Prog Note ---
Assessment/Plan Problems: (1) Acute foreign body of foot Assessment & Plan: chemical technician is following for removal, will continue wide spectrum antibiotics (2) Cellulitis of left foot Assessment & Plan: with possible underlying osteomyelitis , will continue vancomycin, metronidazole and ceftazidime empirically , MRI was suggestive of osteomyelitis, will need 4-6 weeks of antibiotics therapy (3) Diabetes mellitus Assessment & Plan: recommend tight glycemic control to keep blood glucose between 80-120 (4) HTN (hypertension) Assessment & Plan: continue meds to keep BP <140 Subjective Musculoskeletal: Reports: swelling Allergies: Coded Allergies: No Known Allergies (Unverified , 09/14/16) All Systems: reviewed and negative except above Subjective less redness on the foot and less swelling , no fever Objective Vital Signs Last 24 Hour Vital Signs Date Time Temp Pulse Resp B/P Pulse Ox O2 Delivery O2 Flow Rate FiO2 09/24/16 16:08 97.5 63 18 143/75 95 Room Air 09/24/16 13:29 151/72 09/24/16 12:06 97.7 62 20 151/72 95 Room Air 09/24/16 10:07 157/74 09/24/16 10:06 157/74 09/24/16 08:07 97.4 63 20 157/74 95 Room Air 09/24/16 05:14 155/73 09/24/16 04:00 97.5 76 18 155/73 97 Room Air 09/24/16 00:26 161/87 09/23/16 19:00 97.9 67 20 172/78 96 Room Air 09/23/16 18:19 179/86 09/23/16 17:13 155/77 Height (Feet): 5 Height (Inches): 4.00 Weight (Pounds): 153 General Appearance: WD/WN, no acute distress HEENT: normocephalic, atraumatic, anicteric, mucous membranes moist Respiratory/Chest: chest wall non-tender, lungs clear, normal breath sounds, no respiratory distress, no accessory muscle use Cardiovascular: normal peripheral pulses, normal rate, regular rhythm, no gallop/murmur, no JVD Abdomen: normal bowel sounds, soft, non tender, no organomegaly, non distended , no mass, no scars Extremities: no cyanosis, no clubbing, other - left foot swelling Skin: no rash, no lesions, no ulcers Laboratory Tests Test 09/24/16 06:54 White Blood Count 6.0 K/UL (4.8-10.8) Red Blood Count 3.26 M/UL (4.20-5.40) L Hemoglobin 10.2 G/DL (12.0-16.0) L Hematocrit 29.1 % (37.0-47.0) L Mean Corpuscular Volume 89 FL (80-99) Mean Corpuscular Hemoglobin 31.4 PG (27.0-31.0) H Mean Corpuscular Hemoglobin Concent 35.1 G/DL (32.0-36.0) Red Cell Distribution Width 10.8 % (11.6-14.8) L Platelet Count 157 K/UL (150-450) Mean Platelet Volume 8.8 FL (6.5-10.1) Neutrophils (%) (Auto) 72.8 % (45.0-75.0) Lymphocytes (%) (Auto) 18.4 % (20.0-45.0) L Monocytes (%) (Auto) 6.7 % (1.0-10.0) Eosinophils (%) (Auto) 1.4 % (0.0-3.0) Basophils (%) (Auto) 0.8 % (0.0-2.0) Sodium Level 137 mEQ/L (135-145) Potassium Level 3.9 mEQ/L (3.4-4.9) Chloride Level 95 mEQ/L (98-107) L Carbon Dioxide Level 30 mEQ/L (20-30) Anion Gap 12 (5-15) Blood Urea Nitrogen 8 mg/dL (7-23) Creatinine 0.7 mg/dL (0.5-0.9) Estimat Glomerular Filtration Rate > 60 mL/min (>60) Glucose Level 165 mg/dL (74-106) H Uric Acid 5.0 mg/dL (3.0-7.5) Calcium Level 9.2 mg/dL (8.6-10.2) Phosphorus Level 3.9 mg/dL (2.5-4.8) Magnesium Level 1.7 mg/dL (1.7-2.5) Total Bilirubin 0.3 mg/dL (0.0-1.2) Aspartate Amino Transf (AST/SGOT) 14 U/L (5-40) Alanine Aminotransferase (ALT/SGPT) 9 U/L (3-33) Alkaline Phosphatase 76 U/L (35-104) C-Reactive Protein, Quantitative 0.7 mg/dL (< 0.5) H Pro-B-Type Natriuretic Peptide 676 pg/mL (0-125) H Total Protein 6.2 g/dL (6.6-8.7) L Albumin 3.4 g/dL (3.5-5.2) L Globulin 2.8 g/dL Albumin/Globulin Ratio 1.2 (1.0-2.7) Current Medications Medications (Trade) Dose Ordered Sig/Jesse Route PRN Reason Start Time Stop Time Status Last Admin Dose Admin Acetaminophen/ Hydrocodone Bitart ([place] 5/325) 1 tab Q4H PRN ORAL Moderate Pain (Pain Scale 4-6) 09/20/16 20:45 09/27/16 20:44 09/23/16 12:07 Ceftazidime/ Dextrose (Fortaz/D5W) 110 ml @ 220 mls/hr Q12H IV 09/23/16 13:00 09/30/16 12:59 09/24/16 12:08 Dextrose (Dextrose 50%) STAT PRN IV Hypoglycemia 09/20/16 20:45 10/20/16 20:44 Heparin Sodium (Porcine) 5000 units 5,000 units Q12HR SUBQ 09/21/16 10:00 10/21/16 09:59 09/23/16 21:07 Hydralazine HCl (Apresoline) 25 mg Q4H PRN ORAL sbp>165 09/23/16 22:58 10/23/16 22:57 Hydralazine HCl (Apresoline) 25 mg Q8HR ORAL 09/24/16 14:00 10/24/16 13:59 09/24/16 13:29 Insulin Aspart (NovoLOG) BEFORE MEALS AND HS SUBQ 09/20/16 22:00 10/20/16 21:59 09/24/16 12:47 Lisinopril 20 mg 20 mg BID ORAL 09/22/16 18:00 10/22/16 17:59 09/24/16 10:06 Metoclopramide HCl (Reglan) 10 mg TIAC ORAL 09/24/16 11:30 10/24/16 11:29 09/24/16 12:08 Metronidazole (Flagyl) 100 ml @ 100 mls/hr Q8H IV 09/21/16 17:00 09/28/16 16:59 09/24/16 08:48 Nateglinide 60 mg 60 mg TIAC ORAL 09/24/16 11:30 10/24/16 11:29 09/24/16 12:08 Ondansetron HCl (Zofran) 4 mg Q6H PRN IVP Nausea & Vomiting 09/20/16 20:45 10/20/16 20:44 09/23/16 21:06 Vancomycin HCl (Vanco rx to dose) 1 ea DAILY PRN MISC PRN RX PROTOCOL 09/20/16 17:30 10/20/16 17:29 Vancomycin HCl/ Dextrose (Vancomycin/D5W) 275 ml @ 183.708 mls/hr Q12HR IVPB 09/24/16 21:00 10/22/16 20:59 Mino Paz M.D. Sep 24, 2016 16:43
--- NOTE | 2016-09-24 19:00 | General Progress Note ---
Assessment/Plan Assessment/Plan GI CONSULT ATSP for vomiting x 1 day Presumed due to meds and diabetic gastroparesis would Rx with PRN zofran will follow Thank you Veronica Valverde MD Subjective Allergies: Coded Allergies: No Known Allergies (Unverified , 09/14/16) Objective Last 24 Hour Vital Signs Date Time Temp Pulse Resp B/P Pulse Ox O2 Delivery O2 Flow Rate FiO2 09/24/16 16:08 97.5 63 18 143/75 95 Room Air 09/24/16 13:29 151/72 09/24/16 12:06 97.7 62 20 151/72 95 Room Air 09/24/16 10:07 157/74 09/24/16 10:06 157/74 09/24/16 08:07 97.4 63 20 157/74 95 Room Air 09/24/16 05:14 155/73 09/24/16 04:00 97.5 76 18 155/73 97 Room Air 09/24/16 00:26 161/87 09/23/16 19:00 97.9 67 20 172/78 96 Room Air Intake and Output 09/23/16 09/24/16 19:00 07:00 Intake Total 1000 ml 450 ml Balance 1000 ml 450 ml Intake Oral 1000 ml 240 ml IV Total 210 ml # Voids 2 5 Laboratory Tests 09/24/16 06:54: White Blood Count 6.0, Red Blood Count 3.26L, Hemoglobin 10.2L, Hematocrit 29.1L , Mean Corpuscular Volume 89, Mean Corpuscular Hemoglobin 31.4H, Mean Corpuscular Hemoglobin Concent 35.1, Red Cell Distribution Width 10.8L, Platelet Count 157, Mean Platelet Volume 8.8, Neutrophils (%) (Auto) 72.8, Lymphocytes (%) (Auto) 18.4L, Monocytes (%) (Auto) 6.7, Eosinophils (%) (Auto) 1.4, Basophils (%) (Auto) 0.8, Sodium Level 137, Potassium Level 3.9, Chloride Level 95L, Carbon Dioxide Level 30, Anion Gap 12, Blood Urea Nitrogen 8, Creatinine 0.7, Estimat Glomerular Filtration Rate > 60, Glucose Level 165H, Uric Acid 5.0, Calcium Level 9.2, Phosphorus Level 3.9, Magnesium Level 1.7, Total Bilirubin 0.3, Aspartate Amino Transf (AST/SGOT) 14, Alanine Aminotransferase (ALT/SGPT) 9, Alkaline Phosphatase 76, C-Reactive Protein, Quantitative 0.7H, Pro-B-Type Natriuretic Peptide 676H, Total Protein 6.2L, Albumin 3.4L, Globulin 2.8, Albumin/Globulin Ratio 1.2 Height (Feet): 5 Height (Inches): 4.00 Weight (Pounds): 153 VERONICA VALVERDE Sep 24, 2016 19:00
[2016-09-24 20:10] VITALS: BP 129/61
[2016-09-24] MEDS: Vancomycin 1 GM in D5W 275 ML IVPB SCH (21:14)
[2016-09-24 23:43] VITALS: BP 144/63
[2016-09-25] MEDS: CEFTAZIDIME IV SCH ×2 (00:17→12:40)
[2016-09-25] MEDS: D5W IV SCH ×2 (00:17→12:40)
[2016-09-25] MEDS: Flagyl 500mg/NS 100ml Pre-Mix IV SCH ×3 (00:54→17:18)
[2016-09-25 04:00] VITALS: BP 145/71
[2016-09-25] MEDS: HydrALAZINE 25mg tab ORAL SCH ×3 (06:04→21:06)
[2016-09-25] MEDS: Nateglinide 60mg tab ORAL SCH ×2 (06:04→10:37)
[2016-09-25] MEDS: NovoLOG Insulin Flexpen SUBQ SCH ×4 (06:05→20:50)
[2016-09-25 08:23] VITALS: BP 143/69
[2016-09-25] MEDS: Lisinopril 20mg tab ORAL SCH ×2 (08:51→17:19)
[2016-09-25] MEDS: Heparin 5000 units/ml inj SUBQ SCH ×2 (08:53→20:27)
[2016-09-25] MEDS ORDERED: Pneumococcal Vaccine 25mcg/0.5ml IM ONE (09:00)
[2016-09-25] MEDS: Vancomycin 1 GM in D5W 275 ML IVPB SCH ×2 (10:17→20:25)
--- NOTE | 2016-09-25 11:52 | General Progress Note ---
Assessment/Plan Assessment/Plan ASSESSMENT: 1. Anemia secondary to chronic disease. esr 106. does not need iron 2. Lymphopenia 2/2 infection likely 3. Left foot cellulitis with foreign body in fourth toe. 4. Cellulitis of left foot. 5. Diabetes mellitus. 6. Hypertension. RECOMMENDATIONS: 1. Monitor counts. 2. Peripheral smear has been reviewed 3. Continue abx per ID service. 4. Pain control. 5. DVT ppx w heparin sq 6. GI ppx as needed. 7. DW staff. Thank you, Wilbert Tidwell MD Subjective Constitutional: Reports: no symptoms HEENT: Reports: no symptoms Cardiovascular: Reports: no symptoms Respiratory: Reports: no symptoms Gastrointestinal/Abdominal: Reports: poor appetite Genitourinary: Reports: no symptoms Neurologic/Psychiatric: Reports: no symptoms Endocrine: Reports: no symptoms Hematologic/Lymphatic: Reports: anemia Allergies: Coded Allergies: No Known Allergies (Unverified , 09/14/16) Subjective stable, less foot redness, no fevers or chills Objective Last 24 Hour Vital Signs Date Time Temp Pulse Resp B/P Pulse Ox O2 Delivery O2 Flow Rate FiO2 09/25/16 08:51 143/69 09/25/16 08:23 97.5 62 14 143/69 97 Room Air 09/25/16 06:04 145/71 09/25/16 04:00 97.3 58 20 145/71 99 Room Air 09/24/16 23:43 97.7 63 20 144/63 99 Room Air 09/24/16 21:32 129/61 09/24/16 20:10 97.8 65 18 129/61 97 Room Air 09/24/16 19:02 143/75 09/24/16 16:08 97.5 63 18 143/75 95 Room Air 09/24/16 13:29 151/72 09/24/16 12:06 97.7 62 20 151/72 95 Room Air Intake and Output 09/24/16 09/25/16 19:00 07:00 Intake Total 945 ml 963.708 ml Balance 945 ml 963.708 ml Intake Oral 360 ml 570 ml IV Total 585 ml 393.708 ml # Voids 4 1 Height (Feet): 5 Height (Inches): 4.00 Weight (Pounds): 153 General Appearance: no apparent distress EENT: TMs normal Neck: supple Cardiovascular: regular rhythm Respiratory/Chest: normal breath sounds Abdomen: soft Extremities: non-tender Edema: 1+ Leg (L), 1+ Leg (R) Edema: mild edema Neurologic: no motor/sensory deficits Skin: warm/dry WILBERT TIDWELL Sep 25, 2016 11:52
--- NOTE | 2016-09-25 11:54 | General Progress Note ---
Assessment/Plan Problem List: (1) Diabetes ICD Codes: E11.9 - Type 2 diabetes mellitus without complications SNOMED: 96508194 Qualifiers: Qualified Codes: E11.628 - Type 2 diabetes mellitus with other skin complications (2) Cellulitis ICD Codes: L03.90 - Cellulitis, unspecified SNOMED: 588742010 Qualifiers: Qualified Codes: L03.116 - Cellulitis of left lower limb (3) HTN (hypertension) ICD Codes: I10 - Essential (primary) hypertension SNOMED: 45564799 (4) Cellulitis of left foot ICD Codes: L03.116 - Cellulitis of left lower limb SNOMED: 086872102 Status: progressing Assessment/Plan afebrile abdomen is soft no vomit today s/p vomit dm celluitis le improving Subjective ROS Limited/Unobtainable: Yes Allergies: Coded Allergies: No Known Allergies (Unverified , 09/14/16) Objective Last 24 Hour Vital Signs Date Time Temp Pulse Resp B/P Pulse Ox O2 Delivery O2 Flow Rate FiO2 09/25/16 08:51 143/69 09/25/16 08:23 97.5 62 14 143/69 97 Room Air 09/25/16 06:04 145/71 09/25/16 04:00 97.3 58 20 145/71 99 Room Air 09/24/16 23:43 97.7 63 20 144/63 99 Room Air 09/24/16 21:32 129/61 09/24/16 20:10 97.8 65 18 129/61 97 Room Air 09/24/16 19:02 143/75 09/24/16 16:08 97.5 63 18 143/75 95 Room Air 09/24/16 13:29 151/72 09/24/16 12:06 97.7 62 20 151/72 95 Room Air Intake and Output 09/24/16 09/25/16 19:00 07:00 Intake Total 945 ml 963.708 ml Balance 945 ml 963.708 ml Intake Oral 360 ml 570 ml IV Total 585 ml 393.708 ml # Voids 4 1 Height (Feet): 5 Height (Inches): 4.00 Weight (Pounds): 153 EENT: PERRL/EOMI Cardiovascular: normal rate Respiratory/Chest: lungs clear Pauline Rhodes MD Sep 25, 2016 11:53
[2016-09-25 12:00] VITALS: BP 144/70
--- NOTE | 2016-09-25 13:13 | General Progress Note ---
Assessment/Plan Status: stable Assessment/Plan status: (1) Acute foreign body of foot (2) Cellulitis of left foot (3) Diabetes mellitus (4) HTN (hypertension) (5) Anemia Plan: on hydralazine for bp- on Reglan - BP and BS control- adjust BP meds- Antibiotics- Surgical eval per orders- Subjective ROS Limited/Unobtainable: No Allergies: Coded Allergies: No Known Allergies (Unverified , 09/14/16) Objective Last 24 Hour Vital Signs Date Time Temp Pulse Resp B/P Pulse Ox O2 Delivery O2 Flow Rate FiO2 09/25/16 12:00 97.2 60 16 144/70 97 Room Air 09/25/16 08:51 143/69 09/25/16 08:23 97.5 62 14 143/69 97 Room Air 09/25/16 06:04 145/71 09/25/16 04:00 97.3 58 20 145/71 99 Room Air 09/24/16 23:43 97.7 63 20 144/63 99 Room Air 09/24/16 21:32 129/61 09/24/16 20:10 97.8 65 18 129/61 97 Room Air 09/24/16 19:02 143/75 09/24/16 16:08 97.5 63 18 143/75 95 Room Air 09/24/16 13:29 151/72 Intake and Output 09/24/16 09/25/16 19:00 07:00 Intake Total 945 ml 963.708 ml Balance 945 ml 963.708 ml Intake Oral 360 ml 570 ml IV Total 585 ml 393.708 ml # Voids 4 1 Height (Feet): 5 Height (Inches): 4.00 Weight (Pounds): 153 General Appearance: no apparent distress Objective PE not changed GUI QUEVEDO Sep 25, 2016 13:13
[2016-09-25 16:39] VITALS: BP 140/72
--- NOTE | 2016-09-25 16:56 | General Progress Note ---
Assessment/Plan Assessment/Plan Assessment/Recommendation N/V x 1 day - resolved Presumed due to meds and diabetic gastroparesis would Rx with PRN zofran will follow Subjective Allergies: Coded Allergies: No Known Allergies (Unverified , 09/14/16) Subjective no further vomiting feels OK Objective Last 24 Hour Vital Signs Date Time Temp Pulse Resp B/P Pulse Ox O2 Delivery O2 Flow Rate FiO2 09/25/16 16:39 97.7 76 16 140/72 96 09/25/16 13:58 144/70 09/25/16 12:00 97.2 60 16 144/70 97 Room Air 09/25/16 08:51 143/69 09/25/16 08:23 97.5 62 14 143/69 97 Room Air 09/25/16 06:04 145/71 09/25/16 04:00 97.3 58 20 145/71 99 Room Air 09/24/16 23:43 97.7 63 20 144/63 99 Room Air 09/24/16 21:32 129/61 09/24/16 20:10 97.8 65 18 129/61 97 Room Air 09/24/16 19:02 143/75 Intake and Output 09/24/16 09/25/16 19:00 07:00 Intake Total 945 ml 963.708 ml Balance 945 ml 963.708 ml Intake Oral 360 ml 570 ml IV Total 585 ml 393.708 ml # Voids 4 1 Height (Feet): 5 Height (Inches): 4.00 Weight (Pounds): 153 Objective WDWN NCAT supple CTA RRR Soft NT ND no edema non focal ROBEL MARTIN Sep 25, 2016 16:56
[2016-09-25 20:00] VITALS: BP 145/66
--- NOTE | 2016-09-25 21:27 | Podiatric Progress Note ---
Assessment/Plan Patient Anju Clemons is a 61 year old female who was admitted on Sep 20, 2016 at 08: 59 with left foot cellulitis and retained foreign body Problems: (1) Cellulitis of left foot (2) Acute foreign body of foot (3) Diabetes mellitus Assessment/Plan Plan is for surgery tomorrow morning consisting of I&D with removal of foreign body - Cultures were taken of the expressed purulence from the left foot wound - NPO at midnight - Hold heparin - Applied dressing to left foot consisting of adaptic, 4x4 gauze, kerlix, and keerthi wrap - Elevated foot - Non weight bearing on left forefoot Subjective Reason for consult Left foot cellulitis with retained foreign body Allergies: Coded Allergies: No Known Allergies (Unverified , 09/14/16) Subjective Patient states nausea has resolved. Pain has improved. No nausea, vomiting, fevers, or chills reported Objective Exam Last 24 Hour Vital Signs Date Time Temp Pulse Resp B/P Pulse Ox O2 Delivery O2 Flow Rate FiO2 09/25/16 21:06 145/66 09/25/16 20:00 97.3 66 17 145/66 97 09/25/16 17:19 140/72 09/25/16 16:39 97.7 76 16 140/72 96 09/25/16 13:58 144/70 09/25/16 12:00 97.2 60 16 144/70 97 Room Air 09/25/16 08:51 143/69 09/25/16 08:23 97.5 62 14 143/69 97 Room Air 09/25/16 06:04 145/71 09/25/16 04:00 97.3 58 20 145/71 99 Room Air 09/24/16 23:43 97.7 63 20 144/63 99 Room Air 09/24/16 21:32 129/61 Microbiology Date/Time Source Procedure Growth Status 09/20/16 09:16 Blood Blood Culture - Preliminary NO GROWTH AFTER 4 DAYS Resulted Exam Narrative Left plantar foot puncture site is oozing purulence. The area was squeezed and approximately 2cc of purulence was expressed. Mango Vitale DPM Sep 25, 2016 21:26
[2016-09-25 23:50] VITALS: BP 123/63
[2016-09-26] VITALS (10 sets, daily range): BP systolic 124–165; BP diastolic 57–85
[2016-09-26] MEDS: CEFTAZIDIME IV SCH ×2 (00:30→12:51)
[2016-09-26] MEDS: D5W IV SCH ×2 (00:30→12:51)
[2016-09-26] MEDS: Flagyl 500mg/NS 100ml Pre-Mix IV SCH ×3 (01:05→19:28)
[2016-09-26] MEDS: HydrALAZINE 25mg tab ORAL SCH ×3 (05:56→21:54)
[2016-09-26] MEDS: NovoLOG Insulin Flexpen SUBQ SCH ×4 (06:30→21:00)
[2016-09-26] MEDS ORDERED: Bupivacaine 0.5% Inj 30 ml vial INJ ONE (07:08)
[2016-09-26] MEDS ORDERED: Bacitracin 50000 Units Vial ONE ×2 (07:08→08:27)
--- NOTE | 2016-09-26 07:12 | Pre-Procedure Note/Attestation ---
Pre-Procedure Note/Attestation Complete Prior to Procedure Planned Procedure: left Procedure Narrative: Left foot Incision and drainage with removal of foreign body Indications for Procedure Pre-Operative Diagnosis: Left foot cellulitis and abscess with retained foreign body Attestation I attest that I discussed the nature of the procedure; its benefits; risks and complications; and alternatives (and the risks and benefits of such alternatives ), prior to the procedure, with the patient (or the patient's legal credit resolution representative). I attest that, if there was a reasonable possibility of needing a blood transfusion, the patient (or the patient's legal credit resolution representative) was given the [facility] standardized written summary, pursuant to the Matt Goessel Blood Safety Act ([place] Health and Safety Code # 1645, as amended). I attest that I re-evaluated the patient just prior to the surgery and that there has been no change in the patient's H&P, except as documented below: Mango Vitale DPM Sep 26, 2016 07:12
[2016-09-26] MEDS ORDERED: fentaNYL 100 mcg/2 mL IV ONE (07:30)
[2016-09-26] MEDS ORDERED: NS Irrig 1000ml ONE (07:30)
[2016-09-26] MEDS ORDERED: Propofol 10mg/ml 20ml IV ONE (07:30)
[2016-09-26] MEDS ORDERED: Midazolam 2mg/2ml Inj ONE (07:30)
[2016-09-26] MEDS ORDERED: Lidocaine 1% Plain 30 ml INJ ONE (07:42)
--- NOTE | 2016-09-26 08:11 | Anethesia Preoperative Eval ---
Anesthesia Pre-op PMH/ROS General Date of Evaluation: Sep 26, 2016 Time of Evaluation: 07:35 Anesthesiologist: Dennys ASA Score: ASA 3 Mallampati Score Class I : Soft palate, uvula, fauces, pillars visible Class II: Soft palate, uvula, fauces visible Class III: Soft palate, base of uvula visible Class IV: Only hard plate visible Mallampati Classification: Class II Surgeon: Halie Diagnosis: Left foot cellulitis, foreign body Surgical Procedure: Left foot I + D, removal of foreign body Anesthesia History: none Family History: no anesthesia problems Allergies: Coded Allergies: No Known Allergies (Unverified , 09/14/16) Medications: see eMAR Past Medical History Cardiovascular: Reports: HTN Pulmonary: Denies: COPD, MANI, asthma, other Gastrointestinal/Genitourinary: Denies: CRI, ESRD, GERD, other Neurologic/Psychiatric: Denies: CVA, TIA, dementia, depression/anxiety, other Endocrine: Reports: DM HEENT: Denies: [place]QUI (L), [place] (R), cataract (L), cataract (R), glaucoma, other Hematology/Immune: Denies: DVT, anemia, bleeding disorder, other PMH Narrative: HTN, DM PSxH Narrative: denies Anesthesia Pre-op Phys. Exam Physician Exam Last Vital Signs Date Time Temp Pulse Resp B/P Pulse Ox O2 Delivery O2 Flow Rate FiO2 09/26/16 05:56 158/84 09/26/16 04:00 97.2 71 20 98 Room Air Constitutional: NAD Neurologic: CN 2-12 intact Cardiovascular: RRR Respiratory: CTA Gastrointestinal: S/NT/ND Airway Exam Mallampati Score: Class II MO: full ROM: full Teeth: intact Dentures: no lower, no upper MIGUEL GOMEZ D.O. Sep 26, 2016 08:11
[2016-09-26] MEDS ORDERED: fentaNYL 100 mcg/2 mL IV PRN (08:15)
--- NOTE | 2016-09-26 08:42 | Brief Operative Note ---
Immediate Post Operative Note Operative Note Pre-op Diagnosis: Left foot cellulitis and abscess with retained foreign body Procedure: Left foot incision and drainage with removal of foreign body Post-op Diagnosis: same as pre-op Findings: consistent w/pre-op dx studies Surgeon: Mango Vitale Additional Surgeons: Toby Brady DPM ([place]) Anesthesiologist: Dr Noyola Anesthesia: local, MAC Specimen: yes Complications: none Condition: stable Estimated Blood Loss: volume - 15cc Drains: none Tourniquet time: 15 Implant(s) used?: No Mango Vitale DPM Sep 26, 2016 08:42
--- NOTE | 2016-09-26 08:51 | Immediate Post-Op Evaluation ---
Immediate Post-Op Evalulation Immediate Post-Op Evalulation Procedure: left foot I+ D, removal of foreign body Date of Evaluation: Sep 26, 2016 Time of Evaluation: 08:50 IV Fluids: 300ml Estimated Blood Loss: minimal Urinary Output: due to void Blood Pressure Systolic: 160 Blood Pressure Diastolic: 80 Pulse Rate: 63 Respiratory Rate: 16 O2 Sat by Pulse Oximetry: 98 Temperature (Fahrenheit): 97.8 Pain Score (1-10): 0 Nausea: No Vomiting: No Complications none Patient Status: awake, reacts Hydration Status: adequate Drug: n/a MIGUEL GOMEZ D.O. Sep 26, 2016 08:51
[2016-09-26] MEDS: Heparin 5000 units/ml inj SUBQ SCH ×2 (09:00→21:00)
[2016-09-26] MEDS: Lisinopril 20mg tab ORAL SCH ×2 (10:36→18:45)
--- NOTE | 2016-09-26 10:50 | Diagnostic Imaging Report ---
Indication: PAIN, intraoperative Technique: Digital intraoperative images Comparison: Plain radiographs 09/20/2016 Findings: Intraoperative images document surgical removal of previously demonstrated foreign body Impression: Intraoperative imaging, as described
--- NOTE | 2016-09-26 11:01 | GI Progress Note ---
Assessment/Plan Problems: (1) N&V (nausea and vomiting) ICD Codes: R11.2 - Nausea with vomiting, unspecified SNOMED: 48043644 (2) Diabetes ICD Codes: E11.9 - Type 2 diabetes mellitus without complications SNOMED: 35044531 Qualifiers: Qualified Codes: E11.628 - Type 2 diabetes mellitus with other skin complications (3) HTN (hypertension) ICD Codes: I10 - Essential (primary) hypertension SNOMED: 39893798 Status: stable Status Narrative Discussed with Dr. Obrien. Assessment/Plan N/V x 1 day - resolved Presumed due to meds and diabetic gastroparesis would Rx with PRN zofran fu labs outpatient GI procedures Subjective Gastrointestinal/Abdominal: Reports: nausea, no symptoms, vomiting - resolved Objective Last 24 Hour Vital Signs Date Time Temp Pulse Resp B/P Pulse Ox O2 Delivery O2 Flow Rate FiO2 09/26/16 10:36 162/72 09/26/16 09:39 98.1 63 20 162/72 98 Room Air 09/26/16 09:17 64 20 164/73 98 Room Air 09/26/16 09:10 65 20 163/72 98 Room Air 09/26/16 08:55 63 20 138/68 98 Room Air 09/26/16 08:51 63 16 98 09/26/16 08:50 65 20 142/75 98 Room Air 09/26/16 08:45 97.9 67 20 165/80 98 Room Air 09/26/16 05:56 158/84 09/26/16 04:00 97.2 71 20 158/84 98 Room Air 09/25/16 23:50 96.7 63 20 123/63 97 Room Air 09/25/16 21:06 145/66 09/25/16 20:00 97.3 66 17 145/66 97 09/25/16 17:19 140/72 09/25/16 16:39 97.7 76 16 140/72 96 09/25/16 13:58 144/70 09/25/16 12:00 97.2 60 16 144/70 97 Room Air Intake and Output 09/25/16 09/26/16 19:00 07:00 Intake Total 1985.000 ml 440 ml Balance 1985.000 ml 440 ml Intake Oral 1400 ml 120 ml IV Total 585.000 ml 320 ml # Voids 3 4 # Bowel Movements 1 Height (Feet): 5 Height (Inches): 4.00 Weight (Pounds): 153 General Appearance: no apparent distress, alert Cardiovascular: normal rate Respiratory/Chest: normal breath sounds, no respiratory distress Abdominal Exam: normal bowel sounds, non tender, soft Extremities: normal range of motion Eileen Grande N.P. Sep 26, 2016 11:01
--- NOTE | 2016-09-26 11:41 | General Progress Note ---
Assessment/Plan Problem List: (1) Diabetes ICD Codes: E11.9 - Type 2 diabetes mellitus without complications SNOMED: 52077424 Qualifiers: Qualified Codes: E11.628 - Type 2 diabetes mellitus with other skin complications (2) Cellulitis ICD Codes: L03.90 - Cellulitis, unspecified SNOMED: 067253207 Qualifiers: Qualified Codes: L03.116 - Cellulitis of left lower limb (3) HTN (hypertension) ICD Codes: I10 - Essential (primary) hypertension SNOMED: 84464398 (4) Cellulitis of left foot ICD Codes: L03.116 - Cellulitis of left lower limb SNOMED: 379911412 Status: progressing Assessment/Plan vitals stable celluitis le wound care ordered by id and podiatry afebrile abx per id Subjective ROS Limited/Unobtainable: Yes Constitutional: Reports: no symptoms Allergies: Coded Allergies: No Known Allergies (Unverified , 09/14/16) Objective Last 24 Hour Vital Signs Date Time Temp Pulse Resp B/P Pulse Ox O2 Delivery O2 Flow Rate FiO2 09/26/16 10:36 162/72 09/26/16 09:39 98.1 63 20 162/72 98 Room Air 09/26/16 09:17 64 20 164/73 98 Room Air 09/26/16 09:10 65 20 163/72 98 Room Air 09/26/16 08:55 63 20 138/68 98 Room Air 09/26/16 08:51 63 16 98 09/26/16 08:50 65 20 142/75 98 Room Air 09/26/16 08:45 97.9 67 20 165/80 98 Room Air 09/26/16 05:56 158/84 09/26/16 04:00 97.2 71 20 158/84 98 Room Air 09/25/16 23:50 96.7 63 20 123/63 97 Room Air 09/25/16 21:06 145/66 09/25/16 20:00 97.3 66 17 145/66 97 09/25/16 17:19 140/72 09/25/16 16:39 97.7 76 16 140/72 96 09/25/16 13:58 144/70 09/25/16 12:00 97.2 60 16 144/70 97 Room Air Intake and Output 09/25/16 09/26/16 19:00 07:00 Intake Total 1985.000 ml 440 ml Balance 1985.000 ml 440 ml Intake Oral 1400 ml 120 ml IV Total 585.000 ml 320 ml # Voids 3 4 # Bowel Movements 1 Laboratory Tests 09/26/16 10:35: Vancomycin Level Trough 21.1H Height (Feet): 5 Height (Inches): 4.00 Weight (Pounds): 153 Neck: non-tender Cardiovascular: normal rate Respiratory/Chest: lungs clear Abdomen: soft Pauline Rhodes MD Sep 26, 2016 11:41
--- NOTE | 2016-09-26 11:58 | General Progress Note ---
Assessment/Plan Assessment/Plan Assessment/Recommendation N/V x 1 day - resolved Presumed due to meds and diabetic gastroparesis would Rx with PRN zofran will follow Subjective Allergies: Coded Allergies: No Known Allergies (Unverified , 09/14/16) Subjective no further vomiting feels OK Objective Last 24 Hour Vital Signs Date Time Temp Pulse Resp B/P Pulse Ox O2 Delivery O2 Flow Rate FiO2 09/26/16 11:44 98.4 65 20 155/75 97 Room Air 09/26/16 10:36 162/72 09/26/16 09:39 98.1 63 20 162/72 98 Room Air 09/26/16 09:17 64 20 164/73 98 Room Air 09/26/16 09:10 65 20 163/72 98 Room Air 09/26/16 08:55 63 20 138/68 98 Room Air 09/26/16 08:51 63 16 98 09/26/16 08:50 65 20 142/75 98 Room Air 09/26/16 08:45 97.9 67 20 165/80 98 Room Air 09/26/16 05:56 158/84 09/26/16 04:00 97.2 71 20 158/84 98 Room Air 09/25/16 23:50 96.7 63 20 123/63 97 Room Air 09/25/16 21:06 145/66 09/25/16 20:00 97.3 66 17 145/66 97 09/25/16 17:19 140/72 09/25/16 16:39 97.7 76 16 140/72 96 09/25/16 13:58 144/70 09/25/16 12:00 97.2 60 16 144/70 97 Room Air Intake and Output 09/25/16 09/26/16 19:00 07:00 Intake Total 1985.000 ml 440 ml Balance 1985.000 ml 440 ml Intake Oral 1400 ml 120 ml IV Total 585.000 ml 320 ml # Voids 3 4 # Bowel Movements 1 Laboratory Tests 09/26/16 10:35: Vancomycin Level Trough 21.1H Height (Feet): 5 Height (Inches): 4.00 Weight (Pounds): 153 Objective WDWN NCAT supple CTA RRR Soft NT ND no edema non focal ROBEL MARTIN Sep 26, 2016 11:58
--- NOTE | 2016-09-26 13:27 | General Progress Note ---
Assessment/Plan Status: stable Assessment/Plan status: (1) Acute foreign body of foot (2) Cellulitis of left foot (3) Diabetes mellitus (4) HTN (hypertension) (5) Anemia Plan: on hydralazine for bp- on Reglan - BP and BS control- adjust BP meds- Antibiotics- due Surgical procedure today per orders- Subjective ROS Limited/Unobtainable: No Allergies: Coded Allergies: No Known Allergies (Unverified , 09/14/16) Objective Last 24 Hour Vital Signs Date Time Temp Pulse Resp B/P Pulse Ox O2 Delivery O2 Flow Rate FiO2 09/26/16 13:06 155/75 09/26/16 11:44 98.4 65 20 155/75 97 Room Air 09/26/16 10:36 162/72 09/26/16 09:39 98.1 63 20 162/72 98 Room Air 09/26/16 09:17 64 20 164/73 98 Room Air 09/26/16 09:10 65 20 163/72 98 Room Air 09/26/16 08:55 63 20 138/68 98 Room Air 09/26/16 08:51 63 16 98 09/26/16 08:50 65 20 142/75 98 Room Air 09/26/16 08:45 97.9 67 20 165/80 98 Room Air 09/26/16 05:56 158/84 09/26/16 04:00 97.2 71 20 158/84 98 Room Air 09/25/16 23:50 96.7 63 20 123/63 97 Room Air 09/25/16 21:06 145/66 09/25/16 20:00 97.3 66 17 145/66 97 09/25/16 17:19 140/72 09/25/16 16:39 97.7 76 16 140/72 96 09/25/16 13:58 144/70 Intake and Output 09/25/16 09/26/16 19:00 07:00 Intake Total 1985.000 ml 440 ml Balance 1985.000 ml 440 ml Intake Oral 1400 ml 120 ml IV Total 585.000 ml 320 ml # Voids 3 4 # Bowel Movements 1 Laboratory Tests 09/26/16 10:35: Vancomycin Level Trough 21.1H Height (Feet): 5 Height (Inches): 4.00 Weight (Pounds): 153 General Appearance: no apparent distress Objective PE not changed FOULADIAN,GUI Sep 26, 2016 13:27
[2016-09-26] MEDS: Vancomycin 750mg/D5W 275ml IVPB SCH ×2 (17:24)
--- NOTE | 2016-09-26 17:46 | Infectious Diseases Prog Note ---
Assessment/Plan Problems: (1) Acute foreign body of foot Assessment & Plan: S/P removal by binder cutter , will continue wide spectrum antibiotics (2) Cellulitis of left foot Assessment & Plan: with possible underlying osteomyelitis , will continue vancomycin, metronidazole and ceftazidime empirically , MRI was suggestive of osteomyelitis, will need 6 weeks of antibiotics therapy for left foot osteomyelitis , starting from today 09/26/16 (3) Diabetes mellitus Assessment & Plan: recommend tight glycemic control to keep blood glucose between 80-120 (4) HTN (hypertension) Assessment & Plan: continue meds to keep BP <140 Subjective Musculoskeletal: Reports: pain, swelling Allergies: Coded Allergies: No Known Allergies (Unverified , 09/14/16) All Systems: reviewed and negative except above Subjective less redness on the foot and less swelling , no fever Objective Vital Signs Last 24 Hour Vital Signs Date Time Temp Pulse Resp B/P Pulse Ox O2 Delivery O2 Flow Rate FiO2 09/26/16 16:00 98.8 78 20 128/57 95 Room Air 09/26/16 13:06 155/75 09/26/16 11:44 98.4 65 20 155/75 97 Room Air 09/26/16 10:36 162/72 09/26/16 09:39 98.1 63 20 162/72 98 Room Air 09/26/16 09:17 64 20 164/73 98 Room Air 09/26/16 09:10 65 20 163/72 98 Room Air 09/26/16 08:55 63 20 138/68 98 Room Air 09/26/16 08:51 63 16 98 09/26/16 08:50 65 20 142/75 98 Room Air 09/26/16 08:45 97.9 67 20 165/80 98 Room Air 09/26/16 05:56 158/84 09/26/16 04:00 97.2 71 20 158/84 98 Room Air 09/25/16 23:50 96.7 63 20 123/63 97 Room Air 09/25/16 21:06 145/66 09/25/16 20:00 97.3 66 17 145/66 97 Height (Feet): 5 Height (Inches): 4.00 Weight (Pounds): 153 General Appearance: WD/WN, no acute distress HEENT: normocephalic, atraumatic, anicteric, mucous membranes moist Respiratory/Chest: chest wall non-tender, lungs clear, normal breath sounds, no respiratory distress, no accessory muscle use Cardiovascular: normal peripheral pulses, normal rate, regular rhythm, no gallop/murmur, no JVD Abdomen: normal bowel sounds, soft, non tender, no organomegaly, non distended , no mass, no scars Extremities: no cyanosis, no clubbing, other - left foot surgical wound covered with dressing Microbiology Date/Time Source Procedure Growth Status 09/25/16 20:00 Wound Gram Stain - Final Resulted 09/25/16 20:00 Wound Aerobic Culture Pending Resulted Laboratory Tests Test 09/26/16 10:35 Vancomycin Level Trough 21.1 ug/mL (5.0-12.0) H Current Medications Medications (Trade) Dose Ordered Sig/Jesse Route PRN Reason Start Time Stop Time Status Last Admin Dose Admin Acetaminophen/ Hydrocodone Bitart ([place] 5/325) 1 tab Q4H PRN ORAL Moderate Pain (Pain Scale 4-6) 09/20/16 20:45 09/27/16 20:44 09/23/16 12:07 Ceftazidime/ Dextrose (Fortaz/D5W) 110 ml @ 220 mls/hr Q12H IV 09/23/16 13:00 09/30/16 12:59 09/26/16 12:51 Dextrose (Dextrose 50%) STAT PRN IV Hypoglycemia 09/20/16 20:45 10/20/16 20:44 Heparin Sodium (Porcine) 5000 units 5,000 units Q12HR SUBQ 09/21/16 10:00 10/21/16 09:59 09/23/16 21:07 Hydralazine HCl (Apresoline) 25 mg Q4H PRN ORAL sbp>165 09/23/16 22:58 10/23/16 22:57 Hydralazine HCl (Apresoline) 25 mg Q8HR ORAL 09/24/16 14:00 10/24/16 13:59 09/26/16 13:06 Insulin Aspart (NovoLOG) BEFORE MEALS AND HS SUBQ 09/20/16 22:00 10/20/16 21:59 09/26/16 17:25 Lisinopril 20 mg 20 mg BID ORAL 09/22/16 18:00 10/22/16 17:59 09/26/16 10:36 Metoclopramide HCl (Reglan) 10 mg TIAC ORAL 09/24/16 11:30 10/24/16 11:29 09/26/16 17:26 Metronidazole (Flagyl) 100 ml @ 100 mls/hr Q8H IV 09/21/16 17:00 09/28/16 16:59 09/26/16 10:36 Nateglinide 120 mg 120 mg TIAC ORAL 09/25/16 16:30 10/25/16 16:29 09/26/16 16:30 Ondansetron HCl (Zofran) 4 mg Q6H PRN IVP Nausea & Vomiting 09/20/16 20:45 10/20/16 20:44 09/23/16 21:06 Vancomycin HCl (Vanco rx to dose) 1 ea DAILY PRN MISC PRN RX PROTOCOL 09/20/16 17:30 10/20/16 17:29 Vancomycin HCl/ Dextrose (Vancomycin/D5W) 275 ml @ 183.708 mls/hr Q12HR@0400,1600 IVPB 09/26/16 16:00 10/01/16 15:59 09/26/16 17:24 Mino Paz M.D. Sep 26, 2016 17:46
--- NOTE | 2016-09-26 19:16 | General Progress Note ---
Assessment/Plan Assessment/Plan ASSESSMENT: 1. Anemia secondary to chronic disease. esr 106. does not need iron 2. Lymphopenia 2/2 infection likely 3. Left foot cellulitis with foreign body in fourth toe. 4. Cellulitis of left foot. 5. Diabetes mellitus. 6. Hypertension. RECOMMENDATIONS: 1. Monitor counts. 2. Peripheral smear has been reviewed 3. Continue abx per ID service. 4. Pain control. 5. DVT ppx w heparin sq 6. GI ppx as needed. 7. DW staff. Thank you, Bogdan Tidwell MD Subjective Constitutional: Reports: no symptoms HEENT: Reports: mouth pain Cardiovascular: Reports: no symptoms Respiratory: Reports: no symptoms Gastrointestinal/Abdominal: Reports: poor appetite Genitourinary: Reports: no symptoms Neurologic/Psychiatric: Reports: no symptoms Endocrine: Reports: no symptoms Hematologic/Lymphatic: Reports: anemia Allergies: Coded Allergies: No Known Allergies (Unverified , 09/14/16) Subjective alert and oriented, no fevers or chills, no hematochezia or hematemesis reported Objective Last 24 Hour Vital Signs Date Time Temp Pulse Resp B/P Pulse Ox O2 Delivery O2 Flow Rate FiO2 09/26/16 18:45 128/57 09/26/16 16:00 98.8 78 20 128/57 95 Room Air 09/26/16 13:06 155/75 09/26/16 11:44 98.4 65 20 155/75 97 Room Air 09/26/16 10:36 162/72 09/26/16 09:39 98.1 63 20 162/72 98 Room Air 09/26/16 09:17 64 20 164/73 98 Room Air 09/26/16 09:10 65 20 163/72 98 Room Air 09/26/16 08:55 63 20 138/68 98 Room Air 09/26/16 08:51 63 16 98 09/26/16 08:50 65 20 142/75 98 Room Air 09/26/16 08:45 97.9 67 20 165/80 98 Room Air 09/26/16 05:56 158/84 09/26/16 04:00 97.2 71 20 158/84 98 Room Air 09/25/16 23:50 96.7 63 20 123/63 97 Room Air 09/25/16 21:06 145/66 09/25/16 20:00 97.3 66 17 145/66 97 Intake and Output 09/25/16 09/26/16 19:00 07:00 Intake Total 1985.000 ml 440 ml Balance 1985.000 ml 440 ml Intake Oral 1400 ml 120 ml IV Total 585.000 ml 320 ml # Voids 3 4 # Bowel Movements 1 Laboratory Tests 09/26/16 10:35: Vancomycin Level Trough 21.1H Height (Feet): 5 Height (Inches): 4.00 Weight (Pounds): 153 General Appearance: no apparent distress EENT: TMs normal Neck: supple Cardiovascular: regular rhythm Respiratory/Chest: normal breath sounds Abdomen: non tender Extremities: non-tender Edema: 1+ Leg (L), 1+ Leg (R) Edema: mild edema Neurologic: no motor/sensory deficits Bogdan Tidwell Sep 26, 2016 19:16
[2016-09-27] VITALS: BP 145/60
[2016-09-27] MEDS: D5W IV SCH ×2 (00:39→13:40)
[2016-09-27] MEDS: CEFTAZIDIME IV SCH ×2 (00:39→13:40)
[2016-09-27] MEDS: Flagyl 500mg/NS 100ml Pre-Mix IV SCH ×3 (02:42→18:15)
--- NOTE | 2016-09-27 03:08 | Operative Note - Dictated ---
IDENTIFICATION: The patient is a 61-year-old female. PROCEDURE: Left foot incision and drainage with removal of foreign body. PREOPERATIVE DIAGNOSIS: Left foot cellulitis and abscess with retained foreign body. POSTOPERATIVE DIAGNOSIS: Left foot cellulitis and abscess with retained foreign body. FINDINGS: Small amount of purulence with retained foreign body (glass). SURGEON: Mango Vitale DPM. ADDITIONAL SURGEONS: Toby Brady D.P.M. ANESTHESIOLOGIST: Dr. Noyola. ANESTHESIA: Local with MAC. SPECIMENS: Left foot foreign body (glass). COMPLICATIONS: None. CONDITION: Stable. ESTIMATED BLOOD LOSS: 15 mL. DRAINS: None. TOURNIQUET TIME: 35 minutes. IMPLANTS USED: None. Description of PROCEDURE: The patient was brought into the operating room and was assisted onto the operating table in supine position. A tourniquet was placed on the left ankle. After conscious sedation, the patient was injected in the left foot with 10 mL of a 1:1 mixture containing 1% lidocaine plain and 0.25% Marcaine plain. The foot was then prepped and draped in the usual aseptic manner. After time-out, the tourniquet was inflatted to 250mmHg and a small incision was made at the plantar left foot. Small amount of purulence was expressed. With the use of fluoroscopy, the incision was explored and the foreign body was removed. Intraoperative x-rays were repeated, which showed that the foreign body was in fact removed. The surgical site was then irrigated with copious amounts of normal saline solution mixed with a triple antibiotic. The area was explored once more and was noted to be free of any purulence or nonviable tissue. The skin was reapproximated using 3-0 Vicryl and the skin was closed using 3-0 nylon. The tourniquet was deflated and a dressing was applied to the left foot consisting of an Adaptic, 4 x 4 gauze, an ABD pad, Kerlix, and Luiz wrap. The tourniquet was deflated and all toes were noted to be pink with the capillary refill of less than 5 seconds. The patient tolerated the procedure and anesthesia well without any complications. She was then transported to the postop care unit with vital signs stable. After a period of observation, the patient was transferred back to her room. Mango Vitale DPM DR: FELIX JOB#: [id number] CC: AMNA
[2016-09-27 03:56] VITALS: BP 148/68
[2016-09-27] MEDS: Vancomycin 750mg/D5W 275ml IVPB SCH ×4 (04:21→17:25)
[2016-09-27] MEDS: NovoLOG Insulin Flexpen SUBQ SCH ×4 (06:15→21:47)
[2016-09-27] MEDS: HydrALAZINE 25mg tab ORAL SCH ×3 (06:17→21:48)
[2016-09-27 07:10] LABS: BASOPHILS % (AUTO) 0.5 % (0.0-2.0); EOSINOPHILS % (AUTO) 1.8 % (0.0-3.0); LYMPHOCYTES % (AUTO) 8.5 % (20.0-45.0); MEAN CORPUSCULAR HEMOGLOBIN 33.3 PG (27.0-31.0); MEAN CORPUSCULAR VOLUME 90 FL (80-99); MEAN PLATELET VOLUME 10.1 FL (6.5-10.1); MONOCYTES % (AUTO) 8.8 % (1.0-10.0); NEUTROPHILS % (AUTO) 80.4 % (45.0-75.0); PLATELET COUNT 124 K/UL (150-450); RED BLOOD COUNT 2.88 M/UL (4.20-5.40); RED CELL DISTRIBUTION WIDTH 11.7 % (11.6-14.8); WHITE BLOOD COUNT 6.5 K/UL (4.8-10.8)
[2016-09-27 07:42] LABS: ANION GAP 11 (5-15); CALCIUM 8.7 mg/dL (8.6-10.2); CARBON DIOXIDE 28 mEQ/L (20-30); CHLORIDE 101 mEQ/L (98-107); CREATININE 0.8 mg/dL (0.5-0.9); GLOMERULAR FILTRATION RATE > 60 mL/min (>60); HEMOLYSIS 1; POTASSIUM 3.8 mEQ/L (3.4-4.9); SODIUM 140 mEQ/L (135-145)
[2016-09-27 08:00] VITALS: BP 141/62
[2016-09-27] MEDS: Heparin 5000 units/ml inj SUBQ SCH ×2 (09:00→21:46)
[2016-09-27] MEDS: Lisinopril 20mg tab ORAL SCH ×2 (09:19→18:15)
--- NOTE | 2016-09-27 10:23 | 48 Hour Post Anesthesia Eval ---
Post Anesthesia Evaluation Procedure: left foot I+ D, removal of foreign body Date of Evaluation: Sep 27, 2016 Time of Evaluation: 11:10 Blood Pressure Systolic: 141 0: 62 Pulse Rate: 77 Respiratory Rate: 18 Temperature (Fahrenheit): 98.4 O2 Sat by Pulse Oximetry: 96 Airway: patent Nausea: No Vomiting: No Pain Intensity: 2 Hydration Status: adequate Cardiopulmonary Status: Stable Mental Status/LOC: patient returned to baseline Follow-up Care/Observations: As per surgery Post-Anesthesia Complications: No anesthetic complication Follow-up care needed: N/A СВЕТЛАНА JONES M.D. Sep 27, 2016 10:23
--- NOTE | 2016-09-27 11:23 | GI Progress Note ---
Assessment/Plan Problems: (1) N&V (nausea and vomiting) ICD Codes: R11.2 - Nausea with vomiting, unspecified SNOMED: 50851392 (2) Diabetes ICD Codes: E11.9 - Type 2 diabetes mellitus without complications SNOMED: 76259545 Qualifiers: Qualified Codes: E11.628 - Type 2 diabetes mellitus with other skin complications (3) HTN (hypertension) ICD Codes: I10 - Essential (primary) hypertension SNOMED: 81017671 Status: stable Status Narrative Discussed with Dr. Obrien. Assessment/Plan N/V x 1 day - resolved Presumed due to meds and diabetic gastroparesis >> cont Reglan ATC zofran prn fu labs abx consider Rx zofran outpatient GI procedures Subjective Subjective denies N/V Objective Last 24 Hour Vital Signs Date Time Temp Pulse Resp B/P Pulse Ox O2 Delivery O2 Flow Rate FiO2 09/27/16 10:23 77 18 96 09/27/16 09:19 141/62 09/27/16 08:00 98.4 77 18 141/62 96 Room Air 09/27/16 06:17 148/68 09/27/16 03:56 99.7 82 18 148/68 96 Room Air 09/27/16 00:00 98.6 89 18 145/60 98 Room Air 09/26/16 21:54 145/65 09/26/16 19:00 99.3 98 20 124/85 96 Room Air 09/26/16 18:45 128/57 09/26/16 16:00 98.8 78 20 128/57 95 Room Air 09/26/16 13:06 155/75 09/26/16 11:44 98.4 65 20 155/75 97 Room Air Intake and Output 09/26/16 09/27/16 19:00 07:00 Intake Total 1040 ml 360 ml Balance 1040 ml 360 ml Intake Oral 480 ml 360 ml IV Total 560 ml # Voids 8 Laboratory Tests Test 09/27/16 05:35 White Blood Count 6.5 K/UL (4.8-10.8) Red Blood Count 2.88 M/UL (4.20-5.40) L Hemoglobin 9.6 G/DL (12.0-16.0) L Hematocrit 25.9 % (37.0-47.0) L Mean Corpuscular Volume 90 FL (80-99) Mean Corpuscular Hemoglobin 33.3 PG (27.0-31.0) H Mean Corpuscular Hemoglobin Concent 37.0 G/DL (32.0-36.0) H Red Cell Distribution Width 11.7 % (11.6-14.8) Platelet Count 124 K/UL (150-450) L Mean Platelet Volume 10.1 FL (6.5-10.1) Neutrophils (%) (Auto) 80.4 % (45.0-75.0) H Lymphocytes (%) (Auto) 8.5 % (20.0-45.0) L Monocytes (%) (Auto) 8.8 % (1.0-10.0) Eosinophils (%) (Auto) 1.8 % (0.0-3.0) Basophils (%) (Auto) 0.5 % (0.0-2.0) Sodium Level 140 mEQ/L (135-145) Potassium Level 3.8 mEQ/L (3.4-4.9) Chloride Level 101 mEQ/L (98-107) Carbon Dioxide Level 28 mEQ/L (20-30) Anion Gap 11 (5-15) Blood Urea Nitrogen 7 mg/dL (7-23) Creatinine 0.8 mg/dL (0.5-0.9) Estimat Glomerular Filtration Rate > 60 mL/min (>60) Glucose Level 177 mg/dL (74-106) H Calcium Level 8.7 mg/dL (8.6-10.2) Height (Feet): 5 Height (Inches): 4.00 Weight (Pounds): 153 General Appearance: no apparent distress, alert Cardiovascular: normal rate Respiratory/Chest: normal breath sounds, no respiratory distress Abdominal Exam: non tender, soft Eileen Grande N.Corazon Sep 27, 2016 11:23
[2016-09-27 12:00] VITALS: BP 157/74
--- NOTE | 2016-09-27 12:52 | General Progress Note ---
Assessment/Plan Problem List: (1) Diabetes ICD Codes: E11.9 - Type 2 diabetes mellitus without complications SNOMED: 39761919 Qualifiers: Qualified Codes: E11.628 - Type 2 diabetes mellitus with other skin complications (2) Cellulitis ICD Codes: L03.90 - Cellulitis, unspecified SNOMED: 944779182 Qualifiers: Qualified Codes: L03.116 - Cellulitis of left lower limb (3) HTN (hypertension) ICD Codes: I10 - Essential (primary) hypertension SNOMED: 79817909 (4) Cellulitis of left foot ICD Codes: L03.116 - Cellulitis of left lower limb SNOMED: 264110959 Status: progressing Assessment/Plan cellulitis of le improving afebrile vitlas stable no wheezing no chills Subjective ROS Limited/Unobtainable: Yes Constitutional: Reports: no symptoms Allergies: Coded Allergies: No Known Allergies (Unverified , 09/14/16) Objective Last 24 Hour Vital Signs Date Time Temp Pulse Resp B/P Pulse Ox O2 Delivery O2 Flow Rate FiO2 09/27/16 10:23 77 18 96 09/27/16 09:19 141/62 09/27/16 08:00 98.4 77 18 141/62 96 Room Air 09/27/16 06:17 148/68 09/27/16 03:56 99.7 82 18 148/68 96 Room Air 09/27/16 00:00 98.6 89 18 145/60 98 Room Air 09/26/16 21:54 145/65 09/26/16 19:00 99.3 98 20 124/85 96 Room Air 09/26/16 18:45 128/57 09/26/16 16:00 98.8 78 20 128/57 95 Room Air 09/26/16 13:06 155/75 Intake and Output 09/26/16 09/27/16 19:00 07:00 Intake Total 1040 ml 360 ml Balance 1040 ml 360 ml Intake Oral 480 ml 360 ml IV Total 560 ml # Voids 8 Laboratory Tests 09/27/16 05:35: White Blood Count 6.5, Red Blood Count 2.88L, Hemoglobin 9.6L, Hematocrit 25.9L , Mean Corpuscular Volume 90, Mean Corpuscular Hemoglobin 33.3H, Mean Corpuscular Hemoglobin Concent 37.0H, Red Cell Distribution Width 11.7, Platelet Count 124L, Mean Platelet Volume 10.1, Neutrophils (%) (Auto) 80.4H, Lymphocytes (%) (Auto) 8.5L, Monocytes (%) (Auto) 8.8, Eosinophils (%) (Auto) 1.8, Basophils (%) (Auto) 0.5, Sodium Level 140, Potassium Level 3.8, Chloride Level 101, Carbon Dioxide Level 28, Anion Gap 11, Blood Urea Nitrogen 7, Creatinine 0.8, Estimat Glomerular Filtration Rate > 60, Glucose Level 177H, Calcium Level 8.7 Height (Feet): 5 Height (Inches): 4.00 Weight (Pounds): 153 Neck: supple Cardiovascular: normal rate Respiratory/Chest: lungs clear Pauline Rhodes MD Sep 27, 2016 12:52
--- NOTE | 2016-09-27 13:42 | General Progress Note ---
Assessment/Plan Status: unchanged Assessment/Plan status: (1) Acute foreign body of foot (2) Cellulitis of left foot (3) Diabetes mellitus (4) HTN (hypertension) (5) Anemia Plan: on hydralazine for bp- on Reglan - BP and BS control- adjust BP meds- Antibiotics- due Surgical procedure today per orders- Subjective ROS Limited/Unobtainable: No Allergies: Coded Allergies: No Known Allergies (Unverified , 09/14/16) Objective Last 24 Hour Vital Signs Date Time Temp Pulse Resp B/P Pulse Ox O2 Delivery O2 Flow Rate FiO2 09/27/16 12:00 99.7 84 22 157/74 95 Room Air 09/27/16 10:23 77 18 96 09/27/16 09:19 141/62 09/27/16 08:00 98.4 77 18 141/62 96 Room Air 09/27/16 06:17 148/68 09/27/16 03:56 99.7 82 18 148/68 96 Room Air 09/27/16 00:00 98.6 89 18 145/60 98 Room Air 09/26/16 21:54 145/65 09/26/16 19:00 99.3 98 20 124/85 96 Room Air 09/26/16 18:45 128/57 09/26/16 16:00 98.8 78 20 128/57 95 Room Air Intake and Output 09/26/16 09/27/16 19:00 07:00 Intake Total 1040 ml 360 ml Balance 1040 ml 360 ml Intake Oral 480 ml 360 ml IV Total 560 ml # Voids 8 Laboratory Tests 09/27/16 05:35: White Blood Count 6.5, Red Blood Count 2.88L, Hemoglobin 9.6L, Hematocrit 25.9L , Mean Corpuscular Volume 90, Mean Corpuscular Hemoglobin 33.3H, Mean Corpuscular Hemoglobin Concent 37.0H, Red Cell Distribution Width 11.7, Platelet Count 124L, Mean Platelet Volume 10.1, Neutrophils (%) (Auto) 80.4H, Lymphocytes (%) (Auto) 8.5L, Monocytes (%) (Auto) 8.8, Eosinophils (%) (Auto) 1.8, Basophils (%) (Auto) 0.5, Sodium Level 140, Potassium Level 3.8, Chloride Level 101, Carbon Dioxide Level 28, Anion Gap 11, Blood Urea Nitrogen 7, Creatinine 0.8, Estimat Glomerular Filtration Rate > 60, Glucose Level 177H, Calcium Level 8.7 Height (Feet): 5 Height (Inches): 4.00 Weight (Pounds): 153 General Appearance: no apparent distress Objective PE not changed GUI QUEVEDO Sep 27, 2016 13:42
--- NOTE | 2016-09-27 15:44 | Podiatric Progress Note ---
Assessment/Plan Patient Anju Clemons is a 61 year old female who was admitted on Sep 20, 2016 at 08: 59 with left foot cellulitis Problems: (1) Cellulitis of left foot (2) Acute foreign body of foot (3) Diabetes mellitus Assessment/Plan Patient is one day status post left foot incision and drainage with removal of foreign body. She is doing well and states no nausea, vomiting, fevers, or chills. Patient is afebrile and does not have any leukocytosis. Her nausea and vomiting has resolved. - Continue with antibiotics per infectious disease specialist recommendations. Awaiting final culture results - Patient is stable enough from podiatry standpoint to start discharge planning - Ordering physical therapy training with walker to maintain non weight bearing on left foot - Will follow up as an outpatient for suture removal in 2 weeks Subjective Day of Surgery: 09/26/16 Reason for consult Left foot cellulitis Procedure Performed Left foot incision and drainage with removal of foreign body Allergies: Coded Allergies: No Known Allergies (Unverified , 09/14/16) Subjective Patient states no pain, nausea, vomiting, fevers, or chills. Objective Exam Last 24 Hour Vital Signs Date Time Temp Pulse Resp B/P Pulse Ox O2 Delivery O2 Flow Rate FiO2 09/27/16 13:41 154/70 09/27/16 12:00 99.7 84 22 157/74 95 Room Air 09/27/16 10:23 77 18 96 09/27/16 09:19 141/62 09/27/16 08:00 98.4 77 18 141/62 96 Room Air 09/27/16 06:17 148/68 09/27/16 03:56 99.7 82 18 148/68 96 Room Air 09/27/16 00:00 98.6 89 18 145/60 98 Room Air 09/26/16 21:54 145/65 09/26/16 19:00 99.3 98 20 124/85 96 Room Air 09/26/16 18:45 128/57 09/26/16 16:00 98.8 78 20 128/57 95 Room Air Laboratory Tests Test 09/27/16 05:35 White Blood Count 6.5 K/UL (4.8-10.8) Red Blood Count 2.88 M/UL (4.20-5.40) L Hemoglobin 9.6 G/DL (12.0-16.0) L Hematocrit 25.9 % (37.0-47.0) L Mean Corpuscular Volume 90 FL (80-99) Mean Corpuscular Hemoglobin 33.3 PG (27.0-31.0) H Mean Corpuscular Hemoglobin Concent 37.0 G/DL (32.0-36.0) H Red Cell Distribution Width 11.7 % (11.6-14.8) Platelet Count 124 K/UL (150-450) L Mean Platelet Volume 10.1 FL (6.5-10.1) Neutrophils (%) (Auto) 80.4 % (45.0-75.0) H Lymphocytes (%) (Auto) 8.5 % (20.0-45.0) L Monocytes (%) (Auto) 8.8 % (1.0-10.0) Eosinophils (%) (Auto) 1.8 % (0.0-3.0) Basophils (%) (Auto) 0.5 % (0.0-2.0) Sodium Level 140 mEQ/L (135-145) Potassium Level 3.8 mEQ/L (3.4-4.9) Chloride Level 101 mEQ/L (98-107) Carbon Dioxide Level 28 mEQ/L (20-30) Anion Gap 11 (5-15) Blood Urea Nitrogen 7 mg/dL (7-23) Creatinine 0.8 mg/dL (0.5-0.9) Estimat Glomerular Filtration Rate > 60 mL/min (>60) Glucose Level 177 mg/dL (74-106) H Calcium Level 8.7 mg/dL (8.6-10.2) Microbiology Date/Time Source Procedure Growth Status 09/20/16 09:16 Blood Blood Culture - Final NO GROWTH AFTER 5 DAYS Complete 09/25/16 20:00 Wound Gram Stain - Final Resulted 09/25/16 20:00 Aerobic Culture - Preliminary Staphylococcus Aureus Resulted 09/26/16 08:35 Foot Left Gram Stain - Final Resulted 09/26/16 08:35 Foot Left Aerobic Culture - Preliminary NO GROWTH AFTER 24 HOURS Resulted 09/26/16 08:35 Foot Left Anaerobic Culture Pending Resulted Exam Narrative Left plantar foot with sutures in tact and incision site is well coapted. No drainage noted. Erythema and edema has improved. Mango Vitale DPM Sep 27, 2016 15:44
[2016-09-27 16:00] VITALS: BP 145/65
--- NOTE | 2016-09-27 16:26 | Infectious Diseases Prog Note ---
Assessment/Plan Problems: (1) Acute foreign body of foot Assessment & Plan: S/P removal by casting associate , will continue wide spectrum antibiotics (2) Cellulitis of left foot Assessment & Plan: due to staph aureus , with possible underlying osteomyelitis , continue vancomycin, metronidazole and ceftazidime empirically , MRI was suggestive of osteomyelitis, will need 6 weeks of antibiotics therapy for left foot osteomyelitis , starting from today 09/26/16. EOT 11/07/16 (3) Diabetes mellitus Assessment & Plan: recommend tight glycemic control to keep blood glucose between 80-120 (4) HTN (hypertension) Assessment & Plan: continue meds to keep BP <140 (5) Fever Assessment & Plan: suspect due to surgical wound, continue current antibiotics regimen, monitor vitals Subjective Constitutional: Denies: anorexia, chills, drenching sweats, fatigue, fever, no symptoms, other HEENT: Denies: congestion, coryza, dysphagia, hearing change, no symptoms, other, visual change Respiratory: Denies: dry cough, no symptoms, other, productive cough, shortness of breath Breasts: Denies: discharge, no symptoms, other, swelling, tenderness Cardiovascular: Denies: chest pain, dyspnea on exertion, no symptoms, other, palpitations Gastrointestinal/Abdominal: Denies: bloating, blood in stool, constipation, diarrhea, nausea, no symptoms, other, vomiting Genitourinary: Denies: dysuria, frequency, hematuria, last menstrual period, no symptoms, nocturia, other, vaginal bleed/discharge Neurologic: Denies: confusion, headache, no symptoms, numbness, other, weakness Psychiatric: Denies: anxiety, depression, no symptoms, other Skin: Denies: no symptoms, other, rash, ulcer Allergies: Coded Allergies: No Known Allergies (Unverified , 09/14/16) Subjective left foot surgical wound looks ok, with less swelling , no pain Objective Vital Signs Last 24 Hour Vital Signs Date Time Temp Pulse Resp B/P Pulse Ox O2 Delivery O2 Flow Rate FiO2 09/27/16 13:41 154/70 09/27/16 12:00 99.7 84 22 157/74 95 Room Air 09/27/16 10:23 77 18 96 09/27/16 09:19 141/62 09/27/16 08:00 98.4 77 18 141/62 96 Room Air 09/27/16 06:17 148/68 1/31/17 03:56 99.7 82 18 148/68 96 Room Air 09/27/16 00:00 98.6 89 18 145/60 98 Room Air 09/26/16 21:54 145/65 09/26/16 19:00 99.3 98 20 124/85 96 Room Air 09/26/16 18:45 128/57 Height (Feet): 5 Height (Inches): 4.00 Weight (Pounds): 153 General Appearance: WD/WN, no acute distress HEENT: normocephalic, atraumatic, anicteric, mucous membranes moist Respiratory/Chest: chest wall non-tender, lungs clear, normal breath sounds, no respiratory distress, no accessory muscle use Cardiovascular: normal peripheral pulses, normal rate, regular rhythm, no gallop/murmur, no JVD Abdomen: normal bowel sounds, soft, non tender, no organomegaly, non distended , no mass, no scars Extremities: no cyanosis, no clubbing, other - left foot surgical wound Skin: no rash, no lesions, ulcers Microbiology Date/Time Source Procedure Growth Status 09/25/16 20:00 Wound Gram Stain - Final Resulted 09/25/16 20:00 Aerobic Culture - Preliminary Staphylococcus Aureus Resulted 09/26/16 08:35 Foot Left Gram Stain - Final Resulted 09/26/16 08:35 Foot Left Aerobic Culture - Preliminary NO GROWTH AFTER 24 HOURS Resulted 09/26/16 08:35 Foot Left Anaerobic Culture Pending Resulted Laboratory Tests Test 09/27/16 05:35 White Blood Count 6.5 K/UL (4.8-10.8) Red Blood Count 2.88 M/UL (4.20-5.40) L Hemoglobin 9.6 G/DL (12.0-16.0) L Hematocrit 25.9 % (37.0-47.0) L Mean Corpuscular Volume 90 FL (80-99) Mean Corpuscular Hemoglobin 33.3 PG (27.0-31.0) H Mean Corpuscular Hemoglobin Concent 37.0 G/DL (32.0-36.0) H Red Cell Distribution Width 11.7 % (11.6-14.8) Platelet Count 124 K/UL (150-450) L Mean Platelet Volume 10.1 FL (6.5-10.1) Neutrophils (%) (Auto) 80.4 % (45.0-75.0) H Lymphocytes (%) (Auto) 8.5 % (20.0-45.0) L Monocytes (%) (Auto) 8.8 % (1.0-10.0) Eosinophils (%) (Auto) 1.8 % (0.0-3.0) Basophils (%) (Auto) 0.5 % (0.0-2.0) Sodium Level 140 mEQ/L (135-145) Potassium Level 3.8 mEQ/L (3.4-4.9) Chloride Level 101 mEQ/L (98-107) Carbon Dioxide Level 28 mEQ/L (20-30) Anion Gap 11 (5-15) Blood Urea Nitrogen 7 mg/dL (7-23) Creatinine 0.8 mg/dL (0.5-0.9) Estimat Glomerular Filtration Rate > 60 mL/min (>60) Glucose Level 177 mg/dL (74-106) H Calcium Level 8.7 mg/dL (8.6-10.2) Current Medications Medications (Trade) Dose Ordered Sig/Jesse Route PRN Reason Start Time Stop Time Status Last Admin Dose Admin Acetaminophen/ Hydrocodone Bitart ([place] 5/325) 1 tab Q4H PRN ORAL Moderate Pain (Pain Scale 4-6) 09/20/16 20:45 09/27/16 20:44 09/23/16 12:07 Ceftazidime/ Dextrose (Fortaz/D5W) 110 ml @ 220 mls/hr Q12H IV 09/23/16 13:00 09/30/16 12:59 09/27/16 13:40 Dextrose (Dextrose 50%) STAT PRN IV Hypoglycemia 09/20/16 20:45 10/20/16 20:44 Heparin Sodium (Porcine) (Heparin 5000 units/ml) 5,000 units Q12HR SUBQ 09/21/16 10:00 10/21/16 09:59 09/23/16 21:07 Hydralazine HCl (Apresoline) 25 mg Q4H PRN ORAL sbp>165 09/23/16 22:58 10/23/16 22:57 Hydralazine HCl (Apresoline) 25 mg Q8HR ORAL 09/24/16 14:00 10/24/16 13:59 09/27/16 13:41 Insulin Aspart (NovoLOG) BEFORE MEALS AND HS SUBQ 09/20/16 22:00 10/20/16 21:59 09/27/16 12:54 Lisinopril 20 mg 20 mg BID ORAL 09/22/16 18:00 10/22/16 17:59 09/27/16 09:19 Metoclopramide HCl (Reglan) 10 mg TIAC ORAL 09/24/16 11:30 10/24/16 11:29 09/27/16 11:40 Metronidazole (Flagyl) 100 ml @ 100 mls/hr Q8H IV 09/26/16 19:00 10/03/16 18:59 09/27/16 11:40 Nateglinide 120 mg 120 mg TIAC ORAL 09/25/16 16:30 10/25/16 16:29 09/27/16 12:53 Ondansetron HCl (Zofran) 4 mg Q6H PRN IVP Nausea & Vomiting 09/20/16 20:45 10/20/16 20:44 09/23/16 21:06 Vancomycin HCl (Vanco rx to dose) 1 ea DAILY PRN MISC PRN RX PROTOCOL 09/20/16 17:30 10/20/16 17:29 Vancomycin HCl 750 mg/Dextrose 275 ml @ 183.708 mls/hr Q12HR@0400,1600 IVPB 09/26/16 16:00 10/01/16 15:59 09/27/16 04:21 Mino Paz M.D. Sep 27, 2016 16:26
[2016-09-27] MEDS: Norco 5mg/325mg tab ORAL PRN (18:15)
[2016-09-27 19:00] VITALS: BP 134/60
[2016-09-27] MEDS ORDERED: Tubing IV Secondary IV ONE (19:55)
[2016-09-27] MEDS ORDERED: NS 275ml ONE (19:55)
--- NOTE | 2016-09-27 20:53 | General Progress Note ---
Assessment/Plan Assessment/Plan Assessment/Recommendation N/V x 1 day - resolved Presumed due to meds and diabetic gastroparesis would Rx with PRN zofran will follow Subjective Allergies: Coded Allergies: No Known Allergies (Unverified , 09/14/16) Subjective no further vomiting feels OK Objective Last 24 Hour Vital Signs Date Time Temp Pulse Resp B/P Pulse Ox O2 Delivery O2 Flow Rate FiO2 09/27/16 18:15 145/65 09/27/16 16:00 100.2 82 18 145/65 95 Room Air 09/27/16 13:41 154/70 09/27/16 12:00 99.7 84 22 157/74 95 Room Air 09/27/16 10:23 77 18 96 09/27/16 09:19 141/62 09/27/16 08:00 98.4 77 18 141/62 96 Room Air 09/27/16 06:17 148/68 09/27/16 03:56 99.7 82 18 148/68 96 Room Air 09/27/16 00:00 98.6 89 18 145/60 98 Room Air 09/26/16 21:54 145/65 Intake and Output 09/26/16 09/27/16 19:00 07:00 Intake Total 1040 ml 360 ml Balance 1040 ml 360 ml Intake Oral 480 ml 360 ml IV Total 560 ml # Voids 8 Laboratory Tests 09/27/16 05:35: White Blood Count 6.5, Red Blood Count 2.88L, Hemoglobin 9.6L, Hematocrit 25.9L , Mean Corpuscular Volume 90, Mean Corpuscular Hemoglobin 33.3H, Mean Corpuscular Hemoglobin Concent 37.0H, Red Cell Distribution Width 11.7, Platelet Count 124L, Mean Platelet Volume 10.1, Neutrophils (%) (Auto) 80.4H, Lymphocytes (%) (Auto) 8.5L, Monocytes (%) (Auto) 8.8, Eosinophils (%) (Auto) 1.8, Basophils (%) (Auto) 0.5, Sodium Level 140, Potassium Level 3.8, Chloride Level 101, Carbon Dioxide Level 28, Anion Gap 11, Blood Urea Nitrogen 7, Creatinine 0.8, Estimat Glomerular Filtration Rate > 60, Glucose Level 177H, Calcium Level 8.7 Height (Feet): 5 Height (Inches): 4.00 Weight (Pounds): 153 Objective WDWN NCAT supple CTA RRR Soft NT ND no edema non focal ROBEL MARTIN Sep 27, 2016 20:53
--- NOTE | 2016-09-27 21:57 | General Progress Note ---
Assessment/Plan Assessment/Plan ASSESSMENT: 1. Anemia secondary to chronic disease. esr 106. does not need iron 2. Lymphopenia 2/2 infection likely 3. Left foot cellulitis with foreign body in fourth toe. 4. Cellulitis of left foot. 5. Diabetes mellitus. 6. Hypertension. RECOMMENDATIONS: 1. Monitor counts. 2. Peripheral smear has been reviewed 3. Continue abx per ID service. 4. Pain control. 5. DVT ppx with heparin sq 6. GI ppx as needed. 7. DW staff. Thank you, Bogdan Tidwell MD Subjective Constitutional: Reports: no symptoms HEENT: Reports: no symptoms Cardiovascular: Reports: no symptoms Respiratory: Reports: no symptoms Gastrointestinal/Abdominal: Reports: poor appetite Genitourinary: Reports: no symptoms Neurologic/Psychiatric: Reports: no symptoms Endocrine: Reports: no symptoms Hematologic/Lymphatic: Reports: anemia Allergies: Coded Allergies: No Known Allergies (Unverified , 09/14/16) Subjective alert and oriented, no fevers or chills, no hematochezia or hematemesis noted Objective Last 24 Hour Vital Signs Date Time Temp Pulse Resp B/P Pulse Ox O2 Delivery O2 Flow Rate FiO2 09/27/16 21:48 145/65 09/27/16 18:15 145/65 09/27/16 16:00 100.2 82 18 145/65 95 Room Air 09/27/16 13:41 154/70 09/27/16 12:00 99.7 84 22 157/74 95 Room Air 09/27/16 10:23 77 18 96 09/27/16 09:19 141/62 09/27/16 08:00 98.4 77 18 141/62 96 Room Air 09/27/16 06:17 148/68 09/27/16 03:56 99.7 82 18 148/68 96 Room Air 09/27/16 00:00 98.6 89 18 145/60 98 Room Air Intake and Output 09/26/16 09/27/16 19:00 07:00 Intake Total 1040 ml 360 ml Balance 1040 ml 360 ml Intake Oral 480 ml 360 ml IV Total 560 ml # Voids 8 Laboratory Tests 09/27/16 05:35: White Blood Count 6.5, Red Blood Count 2.88L, Hemoglobin 9.6L, Hematocrit 25.9L , Mean Corpuscular Volume 90, Mean Corpuscular Hemoglobin 33.3H, Mean Corpuscular Hemoglobin Concent 37.0H, Red Cell Distribution Width 11.7, Platelet Count 124L, Mean Platelet Volume 10.1, Neutrophils (%) (Auto) 80.4H, Lymphocytes (%) (Auto) 8.5L, Monocytes (%) (Auto) 8.8, Eosinophils (%) (Auto) 1.8, Basophils (%) (Auto) 0.5, Sodium Level 140, Potassium Level 3.8, Chloride Level 101, Carbon Dioxide Level 28, Anion Gap 11, Blood Urea Nitrogen 7, Creatinine 0.8, Estimat Glomerular Filtration Rate > 60, Glucose Level 177H, Calcium Level 8.7 Height (Feet): 5 Height (Inches): 4.00 Weight (Pounds): 153 General Appearance: no apparent distress EENT: TMs normal Neck: supple Cardiovascular: regular rhythm Respiratory/Chest: lungs clear Abdomen: non tender Extremities: non-tender Edema: no edema noted Leg (L), no edema noted Leg (R) Edema: mild edema Neurologic: alert Skin: warm/dry Bogdan Tidwell Sep 27, 2016 21:57
[2016-09-28] VITALS: BP 145/59
[2016-09-28] MEDS: D5W IV SCH ×2 (01:16→13:11)
[2016-09-28] MEDS: CEFTAZIDIME IV SCH ×2 (01:16→13:11)
[2016-09-28] MEDS: Flagyl 500mg/NS 100ml Pre-Mix IV SCH ×3 (03:12→19:01)
[2016-09-28 04:00] VITALS: BP 154/74
[2016-09-28] MEDS: Vancomycin 750mg/D5W 275ml IVPB SCH ×4 (04:37→16:17)
[2016-09-28] MEDS: HydrALAZINE 25mg tab ORAL SCH (05:38)
[2016-09-28] MEDS: NovoLOG Insulin Flexpen SUBQ SCH ×4 (05:45→21:00)
--- NOTE | 2016-09-28 07:59 | General Progress Note ---
Assessment/Plan Assessment/Plan Assessment/Recommendation N/V x 1 day - resolved Presumed due to meds and diabetic gastroparesis would Rx with PRN zofran will follow Subjective Allergies: Coded Allergies: No Known Allergies (Unverified , 09/14/16) Subjective no further vomiting feels OK Objective Last 24 Hour Vital Signs Date Time Temp Pulse Resp B/P Pulse Ox O2 Delivery O2 Flow Rate FiO2 09/28/16 05:38 154/74 09/28/16 04:00 99.5 90 18 154/74 93 Room Air 09/28/16 00:00 98.2 73 20 145/59 94 Room Air 09/27/16 21:48 145/65 09/27/16 19:00 98.4 69 18 134/60 Room Air 09/27/16 18:15 145/65 09/27/16 16:00 100.2 82 18 145/65 95 Room Air 09/27/16 13:41 154/70 09/27/16 12:00 99.7 84 22 157/74 95 Room Air 09/27/16 10:23 77 18 96 09/27/16 09:19 141/62 09/27/16 08:00 98.4 77 18 141/62 96 Room Air Intake and Output 09/27/16 09/28/16 19:00 07:00 Intake Total 560 ml 400 ml Balance 560 ml 400 ml Intake Oral 560 ml 400 ml # Voids 1 6 Height (Feet): 5 Height (Inches): 4.00 Weight (Pounds): 153 Objective WDWN NCAT supple CTA RRR Soft NT ND no edema non focal ROBEL MARTIN Sep 28, 2016 07:59
[2016-09-28 08:12] VITALS: BP 150/68
[2016-09-28] MEDS: Lisinopril 20mg tab ORAL SCH ×2 (08:54→17:38)
[2016-09-28] MEDS: Heparin 5000 units/ml inj SUBQ SCH ×2 (09:00→20:38)
[2016-09-28 09:37] LABS: BASOPHILS % (AUTO) 1.2 % (0.0-2.0); EOSINOPHILS % (AUTO) 1.2 % (0.0-3.0); LYMPHOCYTES % (AUTO) 15.5 % (20.0-45.0); MEAN CORPUSCULAR HEMOGLOBIN 32.4 PG (27.0-31.0); MEAN CORPUSCULAR HGB CONC 35.7 G/DL (32.0-36.0); MEAN CORPUSCULAR VOLUME 91 FL (80-99); MEAN PLATELET VOLUME 8.4 FL (6.5-10.1); MONOCYTES % (AUTO) 10.7 % (1.0-10.0); NEUTROPHILS % (AUTO) 71.5 % (45.0-75.0); PLATELET COUNT 109 K/UL (150-450); RED CELL DISTRIBUTION WIDTH 11.7 % (11.6-14.8); WHITE BLOOD COUNT 5.1 K/UL (4.8-10.8)
[2016-09-28 10:02] LABS: ANION GAP 11 (5-15); CALCIUM 8.6 mg/dL (8.6-10.2); CARBON DIOXIDE 27 mEQ/L (20-30); CHLORIDE 96 mEQ/L (98-107); CREATININE 0.7 mg/dL (0.5-0.9); GLOMERULAR FILTRATION RATE > 60 mL/min (>60); HEMOLYSIS 0; POTASSIUM 3.5 mEQ/L (3.4-4.9); SODIUM 134 mEQ/L (135-145)
--- NOTE | 2016-09-28 10:53 | GI Progress Note ---
Assessment/Plan Problems: (1) N&V (nausea and vomiting) ICD Codes: R11.2 - Nausea with vomiting, unspecified SNOMED: 78789196 (2) Diabetes ICD Codes: E11.9 - Type 2 diabetes mellitus without complications SNOMED: 93235048 Qualifiers: Qualified Codes: E11.628 - Type 2 diabetes mellitus with other skin complications (3) HTN (hypertension) ICD Codes: I10 - Essential (primary) hypertension SNOMED: 41065843 Status: stable Status Narrative Discussed with Dr. Obrien. Assessment/Plan okay for DC per GI standpoint N/V x 1 day - resolved Presumed due to meds and diabetic gastroparesis >> cont Reglan ATC zofran prn fu labs abx consider Rx zofran outpatient GI procedures Subjective Subjective denies N/V Objective Last 24 Hour Vital Signs Date Time Temp Pulse Resp B/P Pulse Ox O2 Delivery O2 Flow Rate FiO2 09/28/16 08:54 150/68 09/28/16 08:12 99.8 74 19 150/68 95 Room Air 09/28/16 05:38 154/74 09/28/16 04:00 99.5 90 18 154/74 93 Room Air 09/28/16 00:00 98.2 73 20 145/59 94 Room Air 09/27/16 21:48 145/65 09/27/16 19:00 98.4 69 18 134/60 Room Air 09/27/16 18:15 145/65 09/27/16 16:00 100.2 82 18 145/65 95 Room Air 09/27/16 13:41 154/70 09/27/16 12:00 99.7 84 22 157/74 95 Room Air Intake and Output 09/27/16 09/28/16 19:00 07:00 Intake Total 560 ml 400 ml Balance 560 ml 400 ml Intake Oral 560 ml 400 ml # Voids 1 6 Laboratory Tests Test 09/28/16 09:15 White Blood Count 5.1 K/UL (4.8-10.8) Red Blood Count 3.00 M/UL (4.20-5.40) L Hemoglobin 9.7 G/DL (12.0-16.0) L Hematocrit 27.2 % (37.0-47.0) L Mean Corpuscular Volume 91 FL (80-99) Mean Corpuscular Hemoglobin 32.4 PG (27.0-31.0) H Mean Corpuscular Hemoglobin Concent 35.7 G/DL (32.0-36.0) Red Cell Distribution Width 11.7 % (11.6-14.8) Platelet Count 109 K/UL (150-450) L Mean Platelet Volume 8.4 FL (6.5-10.1) Neutrophils (%) (Auto) 71.5 % (45.0-75.0) Lymphocytes (%) (Auto) 15.5 % (20.0-45.0) L Monocytes (%) (Auto) 10.7 % (1.0-10.0) H Eosinophils (%) (Auto) 1.2 % (0.0-3.0) Basophils (%) (Auto) 1.2 % (0.0-2.0) Sodium Level 134 mEQ/L (135-145) L Potassium Level 3.5 mEQ/L (3.4-4.9) Chloride Level 96 mEQ/L (98-107) L Carbon Dioxide Level 27 mEQ/L (20-30) Anion Gap 11 (5-15) Blood Urea Nitrogen 6 mg/dL (7-23) L Creatinine 0.7 mg/dL (0.5-0.9) Estimat Glomerular Filtration Rate > 60 mL/min (>60) Glucose Level 111 mg/dL (74-106) H Calcium Level 8.6 mg/dL (8.6-10.2) Height (Feet): 5 Height (Inches): 4.00 Weight (Pounds): 153 General Appearance: no apparent distress, alert Cardiovascular: normal rate Respiratory/Chest: normal breath sounds, no respiratory distress Abdominal Exam: normal bowel sounds, non tender, soft Eileen Grande N.P. Sep 28, 2016 10:53
[2016-09-28 11:38] VITALS: BP 153/68
--- NOTE | 2016-09-28 11:53 | General Progress Note ---
Assessment/Plan Problem List: (1) Diabetes ICD Codes: E11.9 - Type 2 diabetes mellitus without complications SNOMED: 44793268 Qualifiers: Qualified Codes: E11.628 - Type 2 diabetes mellitus with other skin complications (2) Cellulitis ICD Codes: L03.90 - Cellulitis, unspecified SNOMED: 961727315 Qualifiers: Qualified Codes: L03.116 - Cellulitis of left lower limb (3) HTN (hypertension) ICD Codes: I10 - Essential (primary) hypertension SNOMED: 61491609 (4) Cellulitis of left foot ICD Codes: L03.116 - Cellulitis of left lower limb SNOMED: 811938681 Assessment/Plan cellulitis of le improving s/p i&d of foot wound osteo of the wound per id needs 6 weeks of iv abx for osteo Subjective Constitutional: Reports: no symptoms Allergies: Coded Allergies: No Known Allergies (Unverified , 09/14/16) Objective Last 24 Hour Vital Signs Date Time Temp Pulse Resp B/P Pulse Ox O2 Delivery O2 Flow Rate FiO2 09/28/16 11:38 99.0 73 19 153/68 95 Room Air 09/28/16 08:54 150/68 09/28/16 08:12 99.8 74 19 150/68 95 Room Air 09/28/16 05:38 154/74 09/28/16 04:00 99.5 90 18 154/74 93 Room Air 09/28/16 00:00 98.2 73 20 145/59 94 Room Air 09/27/16 21:48 145/65 09/27/16 19:00 98.4 69 18 134/60 Room Air 09/27/16 18:15 145/65 09/27/16 16:00 100.2 82 18 145/65 95 Room Air 09/27/16 13:41 154/70 09/27/16 12:00 99.7 84 22 157/74 95 Room Air Intake and Output 09/27/16 09/28/16 19:00 07:00 Intake Total 560 ml 400 ml Balance 560 ml 400 ml Intake Oral 560 ml 400 ml # Voids 1 6 Laboratory Tests 09/28/16 09:15: White Blood Count 5.1, Red Blood Count 3.00L, Hemoglobin 9.7L, Hematocrit 27.2L , Mean Corpuscular Volume 91, Mean Corpuscular Hemoglobin 32.4H, Mean Corpuscular Hemoglobin Concent 35.7, Red Cell Distribution Width 11.7, Platelet Count 109L, Mean Platelet Volume 8.4, Neutrophils (%) (Auto) 71.5, Lymphocytes ( %) (Auto) 15.5L, Monocytes (%) (Auto) 10.7H, Eosinophils (%) (Auto) 1.2, Basophils (%) (Auto) 1.2, Sodium Level 134L, Potassium Level 3.5, Chloride Level 96L, Carbon Dioxide Level 27, Anion Gap 11, Blood Urea Nitrogen 6L, Creatinine 0.7, Estimat Glomerular Filtration Rate > 60, Glucose Level 111H, Calcium Level 8.6 Height (Feet): 5 Height (Inches): 4.00 Weight (Pounds): 153 EENT: PERRL/EOMI Neck: supple Cardiovascular: normal rate Respiratory/Chest: lungs clear Pauline Rhodes MD Sep 28, 2016 11:53
--- NOTE | 2016-09-28 13:47 | General Progress Note ---
Assessment/Plan Status: stable Assessment/Plan status: (1) Acute foreign body of foot (2) Cellulitis of left foot (3) Diabetes mellitus (4) HTN (hypertension) (5) Anemia Plan: on hydralazine for bp- on Reglan - BP and BS control- adjust BP meds- Antibiotics- Had Surgical procedure per orders- Subjective ROS Limited/Unobtainable: No Allergies: Coded Allergies: No Known Allergies (Unverified , 09/14/16) Objective Last 24 Hour Vital Signs Date Time Temp Pulse Resp B/P Pulse Ox O2 Delivery O2 Flow Rate FiO2 09/28/16 11:38 99.0 73 19 153/68 95 Room Air 09/28/16 08:54 150/68 09/28/16 08:12 99.8 74 19 150/68 95 Room Air 09/28/16 05:38 154/74 09/28/16 04:00 99.5 90 18 154/74 93 Room Air 09/28/16 00:00 98.2 73 20 145/59 94 Room Air 09/27/16 21:48 145/65 09/27/16 19:00 98.4 69 18 134/60 Room Air 09/27/16 18:15 145/65 09/27/16 16:00 100.2 82 18 145/65 95 Room Air Intake and Output 09/27/16 09/28/16 19:00 07:00 Intake Total 560 ml 400 ml Balance 560 ml 400 ml Intake Oral 560 ml 400 ml # Voids 1 6 Laboratory Tests 09/28/16 09:15: White Blood Count 5.1, Red Blood Count 3.00L, Hemoglobin 9.7L, Hematocrit 27.2L , Mean Corpuscular Volume 91, Mean Corpuscular Hemoglobin 32.4H, Mean Corpuscular Hemoglobin Concent 35.7, Red Cell Distribution Width 11.7, Platelet Count 109L, Mean Platelet Volume 8.4, Neutrophils (%) (Auto) 71.5, Lymphocytes ( %) (Auto) 15.5L, Monocytes (%) (Auto) 10.7H, Eosinophils (%) (Auto) 1.2, Basophils (%) (Auto) 1.2, Sodium Level 134L, Potassium Level 3.5, Chloride Level 96L, Carbon Dioxide Level 27, Anion Gap 11, Blood Urea Nitrogen 6L, Creatinine 0.7, Estimat Glomerular Filtration Rate > 60, Glucose Level 111H, Calcium Level 8.6 Height (Feet): 5 Height (Inches): 4.00 Weight (Pounds): 153 General Appearance: no apparent distress Objective PE not changed GUI QUEVEDO Sep 28, 2016 13:47
[2016-09-28] MEDS: HydrALAZINE 50mg tab ORAL SCH ×2 (14:43→21:21)
[2016-09-28 15:37] VITALS: BP 146/77
--- NOTE | 2016-09-28 16:33 | Infectious Diseases Prog Note ---
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 EOT (3) Diabetes mellitus Assessment & Plan: recommend tight glycemic control to keep blood glucose between 80-120 (4) HTN (hypertension) Assessment & Plan: continue meds to keep BP <140 (5) Fever Assessment & Plan: suspect due to surgical wound, continue current antibiotics regimen, monitor vitals Subjective Constitutional: Denies: anorexia, chills, drenching sweats, fatigue, fever, no symptoms, other HEENT: Denies: congestion, coryza, dysphagia, hearing change, no symptoms, other, visual change Respiratory: Denies: dry cough, no symptoms, other, productive cough, shortness of breath Breasts: Denies: discharge, no symptoms, other, swelling, tenderness Cardiovascular: Denies: chest pain, dyspnea on exertion, no symptoms, other, palpitations Gastrointestinal/Abdominal: Denies: bloating, blood in stool, constipation, diarrhea, nausea, no symptoms, other, vomiting Genitourinary: Denies: dysuria, frequency, hematuria, last menstrual period, no symptoms, nocturia, other, vaginal bleed/discharge Neurologic: Denies: confusion, headache, no symptoms, numbness, other, weakness Psychiatric: Denies: anxiety, depression, no symptoms, other Skin: Denies: no symptoms, other, rash, ulcer Endocrine: Denies: feels cold, feels warm, no symptoms, other Allergies: Coded Allergies: No Known Allergies (Unverified , 09/14/16) Subjective left foot surgical wound covered with dressing, no drainage or bleeding. Objective Vital Signs Last 24 Hour Vital Signs Date Time Temp Pulse Resp B/P Pulse Ox O2 Delivery O2 Flow Rate FiO2 09/28/16 15:37 99.7 74 19 146/77 95 Room Air 09/28/16 14:43 153/68 09/28/16 11:38 99.0 73 19 153/68 95 Room Air 09/28/16 08:54 150/68 09/28/16 08:12 99.8 74 19 150/68 95 Room Air 09/28/16 05:38 154/74 09/28/16 04:00 99.5 90 18 154/74 93 Room Air 09/28/16 00:00 98.2 73 20 145/59 94 Room Air 09/27/16 21:48 145/65 09/27/16 19:00 98.4 69 18 134/60 Room Air 09/27/16 18:15 145/65 Height (Feet): 5 Height (Inches): 4.00 Weight (Pounds): 153 General Appearance: WD/WN, no acute distress HEENT: normocephalic, atraumatic, anicteric, mucous membranes moist Respiratory/Chest: chest wall non-tender, lungs clear, normal breath sounds, no respiratory distress, no accessory muscle use Cardiovascular: normal peripheral pulses, normal rate, regular rhythm, no gallop/murmur, no JVD Abdomen: normal bowel sounds, soft, non tender, no organomegaly, non distended , no mass, no scars Extremities: no cyanosis, no clubbing, other - left foot wound covered with dressing , no bleeding Skin: no rash, no lesions Microbiology Date/Time Source Procedure Growth Status 09/25/16 20:00 Wound Anaerobic Culture - Preliminary NO GROWTH AFTER 48 HOURS Resulted 09/25/16 20:00 Wound Gram Stain - Final Resulted 09/25/16 20:00 Aerobic Culture - Preliminary Staphylococcus Aureus Resulted 09/26/16 08:35 Foot Left Gram Stain - Final Resulted 09/26/16 08:35 Foot Left Aerobic Culture - Preliminary NO GROWTH AFTER 24 HOURS Resulted 09/26/16 08:35 Foot Left Anaerobic Culture - Preliminary NO GROWTH AFTER 48 HOURS Resulted Laboratory Tests Test 09/28/16 09:15 White Blood Count 5.1 K/UL (4.8-10.8) Red Blood Count 3.00 M/UL (4.20-5.40) L Hemoglobin 9.7 G/DL (12.0-16.0) L Hematocrit 27.2 % (37.0-47.0) L Mean Corpuscular Volume 91 FL (80-99) Mean Corpuscular Hemoglobin 32.4 PG (27.0-31.0) H Mean Corpuscular Hemoglobin Concent 35.7 G/DL (32.0-36.0) Red Cell Distribution Width 11.7 % (11.6-14.8) Platelet Count 109 K/UL (150-450) L Mean Platelet Volume 8.4 FL (6.5-10.1) Neutrophils (%) (Auto) 71.5 % (45.0-75.0) Lymphocytes (%) (Auto) 15.5 % (20.0-45.0) L Monocytes (%) (Auto) 10.7 % (1.0-10.0) H Eosinophils (%) (Auto) 1.2 % (0.0-3.0) Basophils (%) (Auto) 1.2 % (0.0-2.0) Sodium Level 134 mEQ/L (135-145) L Potassium Level 3.5 mEQ/L (3.4-4.9) Chloride Level 96 mEQ/L (98-107) L Carbon Dioxide Level 27 mEQ/L (20-30) Anion Gap 11 (5-15) Blood Urea Nitrogen 6 mg/dL (7-23) L Creatinine 0.7 mg/dL (0.5-0.9) Estimat Glomerular Filtration Rate > 60 mL/min (>60) Glucose Level 111 mg/dL (74-106) H Calcium Level 8.6 mg/dL (8.6-10.2) Current Medications Medications (Trade) Dose Ordered Sig/Jesse Route PRN Reason Start Time Stop Time Status Last Admin Dose Admin Ceftazidime/ Dextrose (Fortaz/D5W) 110 ml @ 220 mls/hr Q12H IV 09/23/16 13:00 09/30/16 12:59 09/28/16 13:11 Dextrose (Dextrose 50%) STAT PRN IV Hypoglycemia 09/20/16 20:45 10/20/16 20:44 Heparin Sodium (Porcine) (Heparin 5000 units/ml) 5,000 units Q12HR SUBQ 09/21/16 10:00 10/21/16 09:59 09/23/16 21:07 Hydralazine HCl (Apresoline) 25 mg Q4H PRN ORAL sbp>165 09/23/16 22:58 10/23/16 22:57 Hydralazine HCl (Apresoline) 50 mg Q8HR ORAL 09/28/16 14:00 10/28/16 13:59 09/28/16 14:43 Insulin Aspart (NovoLOG) BEFORE MEALS AND HS SUBQ 09/20/16 22:00 10/20/16 21:59 09/28/16 05:45 Lisinopril 20 mg 20 mg BID ORAL 09/22/16 18:00 10/22/16 17:59 09/28/16 08:54 Metoclopramide HCl (Reglan) 10 mg TIAC ORAL 09/24/16 11:30 10/24/16 11:29 09/28/16 16:25 Metronidazole (Flagyl) 100 ml @ 100 mls/hr Q8H IV 09/26/16 19:00 10/03/16 18:59 09/28/16 11:26 Nateglinide 120 mg 120 mg TIAC ORAL 09/25/16 16:30 10/25/16 16:29 09/28/16 16:25 Ondansetron HCl (Zofran) 4 mg Q6H PRN IVP Nausea & Vomiting 09/20/16 20:45 10/20/16 20:44 09/23/16 21:06 Vancomycin HCl (Vanco rx to dose) 1 ea DAILY PRN MISC PRN RX PROTOCOL 09/20/16 17:30 10/20/16 17:29 Vancomycin HCl 750 mg/Dextrose 275 ml @ 183.708 mls/hr Q12HR@0400,1600 IVPB 09/26/16 16:00 10/01/16 15:59 09/28/16 16:17 Mino Paz M.D. Sep 28, 2016 16:32
--- NOTE | 2016-09-28 19:00 | General Progress Note ---
Assessment/Plan Assessment/Plan ASSESSMENT: 1. Anemia secondary to chronic disease. esr 106. does not need iron 2. Thrombcytopenia 2/2 infection v meds (potential vanco) 3. Left foot cellulitis with foreign body in fourth toe. 4. Cellulitis of left foot. 5. Diabetes mellitus. 6. Hypertension. RECOMMENDATIONS: 1. Monitor counts. 2. Peripheral smear has been reviewed 3. Continue abx per ID service. 4. Pain control. 5. DVT ppx with heparin sq 6. GI ppx as needed. 7. DW staff. Thank you, Bogdan Tidwell MD Subjective Constitutional: Reports: no symptoms HEENT: Reports: no symptoms Cardiovascular: Reports: no symptoms Respiratory: Reports: no symptoms Gastrointestinal/Abdominal: Reports: poor appetite Genitourinary: Reports: no symptoms Neurologic/Psychiatric: Reports: no symptoms Endocrine: Reports: no symptoms Hematologic/Lymphatic: Reports: anemia Allergies: Coded Allergies: No Known Allergies (Unverified , 09/14/16) Subjective no fevers or chills, no hematochezia or hematemesis Objective Last 24 Hour Vital Signs Date Time Temp Pulse Resp B/P Pulse Ox O2 Delivery O2 Flow Rate FiO2 09/28/16 17:38 146/77 09/28/16 15:37 99.7 74 19 146/77 95 Room Air 09/28/16 14:43 153/68 09/28/16 11:38 99.0 73 19 153/68 95 Room Air 09/28/16 08:54 150/68 09/28/16 08:12 99.8 74 19 150/68 95 Room Air 09/28/16 05:38 154/74 09/28/16 04:00 99.5 90 18 154/74 93 Room Air 09/28/16 00:00 98.2 73 20 145/59 94 Room Air 09/27/16 21:48 145/65 09/27/16 19:00 98.4 69 18 134/60 Room Air Intake and Output 09/27/16 09/28/16 19:00 07:00 Intake Total 560 ml 400 ml Balance 560 ml 400 ml Intake Oral 560 ml 400 ml # Voids 1 6 Laboratory Tests 09/28/16 09:15: White Blood Count 5.1, Red Blood Count 3.00L, Hemoglobin 9.7L, Hematocrit 27.2L , Mean Corpuscular Volume 91, Mean Corpuscular Hemoglobin 32.4H, Mean Corpuscular Hemoglobin Concent 35.7, Red Cell Distribution Width 11.7, Platelet Count 109L, Mean Platelet Volume 8.4, Neutrophils (%) (Auto) 71.5, Lymphocytes ( %) (Auto) 15.5L, Monocytes (%) (Auto) 10.7H, Eosinophils (%) (Auto) 1.2, Basophils (%) (Auto) 1.2, Sodium Level 134L, Potassium Level 3.5, Chloride Level 96L, Carbon Dioxide Level 27, Anion Gap 11, Blood Urea Nitrogen 6L, Creatinine 0.7, Estimat Glomerular Filtration Rate > 60, Glucose Level 111H, Calcium Level 8.6 Height (Feet): 5 Height (Inches): 4.00 Weight (Pounds): 153 General Appearance: alert EENT: TMs normal Neck: supple Cardiovascular: regular rhythm Respiratory/Chest: normal breath sounds Abdomen: soft Extremities: non-tender Edema: mild edema Neurologic: alert Skin: normal pigmentation Bogdan Tidwell Sep 28, 2016 19:00
[2016-09-28 20:02] VITALS: BP 147/73
[2016-09-29] VITALS (7 sets, daily range): BP systolic 113–154; BP diastolic 62–76
[2016-09-29] MEDS: D5W IV SCH ×2 (01:40→13:39)
[2016-09-29] MEDS: CEFTAZIDIME IV SCH ×2 (01:40→13:39)
[2016-09-29] MEDS: Flagyl 500mg/NS 100ml Pre-Mix IV SCH ×3 (02:28→21:37)
[2016-09-29] MEDS: Vancomycin 750mg/D5W 275ml IVPB SCH ×4 (04:59→18:33)
[2016-09-29] MEDS: HydrALAZINE 50mg tab ORAL SCH ×3 (06:04→21:38)
[2016-09-29] MEDS: NovoLOG Insulin Flexpen SUBQ SCH ×4 (06:11→21:00)
[2016-09-29 07:12] LABS: BASOPHILS % (AUTO) 0.7 % (0.0-2.0); EOSINOPHILS % (AUTO) 1.6 % (0.0-3.0); LYMPHOCYTES % (AUTO) 21.2 % (20.0-45.0); MEAN CORPUSCULAR HEMOGLOBIN 31.6 PG (27.0-31.0); MEAN CORPUSCULAR VOLUME 90 FL (80-99); MONOCYTES % (AUTO) 11.2 % (1.0-10.0); NEUTROPHILS % (AUTO) 65.4 % (45.0-75.0); PLATELET COUNT 110 K/UL (150-450); RED BLOOD COUNT 3.08 M/UL (4.20-5.40); RED CELL DISTRIBUTION WIDTH 11.7 % (11.6-14.8); WHITE BLOOD COUNT 4.7 K/UL (4.8-10.8)
[2016-09-29 07:29] LABS: ANION GAP 13 (5-15); CALCIUM 8.6 mg/dL (8.6-10.2); CARBON DIOXIDE 27 mEQ/L (20-30); CHLORIDE 96 mEQ/L (98-107); CREATININE 0.8 mg/dL (0.5-0.9); GLOMERULAR FILTRATION RATE > 60 mL/min (>60); HEMOLYSIS 4; POTASSIUM 3.7 mEQ/L (3.4-4.9); SODIUM 136 mEQ/L (135-145)
[2016-09-29] MEDS: Lisinopril 20mg tab ORAL SCH ×2 (08:37→17:14)
[2016-09-29] MEDS: Heparin 5000 units/ml inj SUBQ SCH ×2 (08:38→21:00)
--- NOTE | 2016-09-29 11:33 | GI Progress Note ---
Assessment/Plan Problems: (1) N&V (nausea and vomiting) ICD Codes: R11.2 - Nausea with vomiting, unspecified SNOMED: 15578289 (2) Diabetes ICD Codes: E11.9 - Type 2 diabetes mellitus without complications SNOMED: 32075598 Qualifiers: Qualified Codes: E11.628 - Type 2 diabetes mellitus with other skin complications (3) HTN (hypertension) ICD Codes: I10 - Essential (primary) hypertension SNOMED: 40476308 Status: stable Status Narrative Discussed with Dr. Obrien. Assessment/Plan okay for DC per GI standpoint N/V x 1 day - resolved Presumed due to meds and diabetic gastroparesis >> cont Reglan ATC zofran prn fu labs abx consider Rx zofran outpatient GI procedures Subjective Gastrointestinal/Abdominal: Reports: no symptoms Subjective denies N/V Objective Last 24 Hour Vital Signs Date Time Temp Pulse Resp B/P Pulse Ox O2 Delivery O2 Flow Rate FiO2 09/29/16 08:37 128/62 09/29/16 08:20 98.2 69 19 128/62 95 Room Air 09/29/16 06:04 113/67 09/29/16 04:00 99.0 75 20 113/67 97 Room Air 09/29/16 00:00 99.1 70 20 146/63 91 Room Air 09/28/16 21:21 147/73 09/28/16 20:02 100.0 70 20 147/73 92 Room Air 09/28/16 17:38 146/77 09/28/16 15:37 99.7 74 19 146/77 95 Room Air 09/28/16 14:43 153/68 09/28/16 11:38 99.0 73 19 153/68 95 Room Air Intake and Output 09/28/16 09/29/16 19:00 07:00 Intake Total 1135.000 ml 485 ml Balance 1135.000 ml 485 ml Intake Oral 760 ml IV Total 375.000 ml 485 ml # Voids 4 4 # Bowel Movements 1 Laboratory Tests Test 09/29/16 06:05 White Blood Count 4.7 K/UL (4.8-10.8) L Red Blood Count 3.08 M/UL (4.20-5.40) L Hemoglobin 9.7 G/DL (12.0-16.0) L Hematocrit 27.8 % (37.0-47.0) L Mean Corpuscular Volume 90 FL (80-99) Mean Corpuscular Hemoglobin 31.6 PG (27.0-31.0) H Mean Corpuscular Hemoglobin Concent 35.0 G/DL (32.0-36.0) Red Cell Distribution Width 11.7 % (11.6-14.8) Platelet Count 110 K/UL (150-450) L Mean Platelet Volume 9.0 FL (6.5-10.1) Neutrophils (%) (Auto) 65.4 % (45.0-75.0) Lymphocytes (%) (Auto) 21.2 % (20.0-45.0) Monocytes (%) (Auto) 11.2 % (1.0-10.0) H Eosinophils (%) (Auto) 1.6 % (0.0-3.0) Basophils (%) (Auto) 0.7 % (0.0-2.0) Sodium Level 136 mEQ/L (135-145) Potassium Level 3.7 mEQ/L (3.4-4.9) Chloride Level 96 mEQ/L (98-107) L Carbon Dioxide Level 27 mEQ/L (20-30) Anion Gap 13 (5-15) Blood Urea Nitrogen 7 mg/dL (7-23) Creatinine 0.8 mg/dL (0.5-0.9) Estimat Glomerular Filtration Rate > 60 mL/min (>60) Glucose Level 146 mg/dL (74-106) H Calcium Level 8.6 mg/dL (8.6-10.2) Height (Feet): 5 Height (Inches): 4.00 Weight (Pounds): 153 General Appearance: no apparent distress, alert Cardiovascular: normal rate, regular rhythm Respiratory/Chest: normal breath sounds, no respiratory distress Abdominal Exam: normal bowel sounds, non tender, soft Eileen Grande N.P. Sep 29, 2016 11:33
--- NOTE | 2016-09-29 13:30 | General Progress Note ---
Assessment/Plan Status: stable Assessment/Plan status: (1) Acute foreign body of foot (2) Cellulitis of left foot (3) Diabetes mellitus (4) HTN (hypertension) (5) Anemia Plan: on hydralazine for bp- on Reglan - BP and BS control- adjust BP meds- Antibiotics- Had Surgical procedure per orders- Subjective ROS Limited/Unobtainable: No Allergies: Coded Allergies: No Known Allergies (Unverified , 09/14/16) Objective Last 24 Hour Vital Signs Date Time Temp Pulse Resp B/P Pulse Ox O2 Delivery O2 Flow Rate FiO2 09/29/16 13:23 133/71 09/29/16 11:47 97.9 63 19 133/71 95 Room Air 09/29/16 08:37 128/62 09/29/16 08:20 98.2 69 19 128/62 95 Room Air 09/29/16 06:04 113/67 09/29/16 04:00 99.0 75 20 113/67 97 Room Air 09/29/16 00:00 99.1 70 20 146/63 91 Room Air 09/28/16 21:21 147/73 09/28/16 20:02 100.0 70 20 147/73 92 Room Air 09/28/16 17:38 146/77 09/28/16 15:37 99.7 74 19 146/77 95 Room Air 09/28/16 14:43 153/68 Intake and Output 09/28/16 09/29/16 19:00 07:00 Intake Total 1135.000 ml 485 ml Balance 1135.000 ml 485 ml Intake Oral 760 ml IV Total 375.000 ml 485 ml # Voids 4 4 # Bowel Movements 1 Laboratory Tests 09/29/16 06:05: White Blood Count 4.7L, Red Blood Count 3.08L, Hemoglobin 9.7L, Hematocrit 27.8L , Mean Corpuscular Volume 90, Mean Corpuscular Hemoglobin 31.6H, Mean Corpuscular Hemoglobin Concent 35.0, Red Cell Distribution Width 11.7, Platelet Count 110L, Mean Platelet Volume 9.0, Neutrophils (%) (Auto) 65.4, Lymphocytes ( %) (Auto) 21.2, Monocytes (%) (Auto) 11.2H, Eosinophils (%) (Auto) 1.6, Basophils (%) (Auto) 0.7, Sodium Level 136, Potassium Level 3.7, Chloride Level 96L, Carbon Dioxide Level 27, Anion Gap 13, Blood Urea Nitrogen 7, Creatinine 0.8, Estimat Glomerular Filtration Rate > 60, Glucose Level 146H, Calcium Level 8.6 Height (Feet): 5 Height (Inches): 4.00 Weight (Pounds): 153 General Appearance: no apparent distress Objective PE not changed GUI QUEVEDO Sep 29, 2016 13:30
--- NOTE | 2016-09-29 16:48 | General Progress Note ---
Assessment/Plan Problem List: (1) Diabetes ICD Codes: E11.9 - Type 2 diabetes mellitus without complications SNOMED: 59399106 Qualifiers: Qualified Codes: E11.628 - Type 2 diabetes mellitus with other skin complications (2) Cellulitis ICD Codes: L03.90 - Cellulitis, unspecified SNOMED: 292756717 Qualifiers: Qualified Codes: L03.116 - Cellulitis of left lower limb (3) HTN (hypertension) ICD Codes: I10 - Essential (primary) hypertension SNOMED: 68779875 (4) Cellulitis of left foot ICD Codes: L03.116 - Cellulitis of left lower limb SNOMED: 054112462 Status: progressing Assessment/Plan afebrile reviwed chart and labs cellulitis of le improving s/p i&d of foot wound osteo of the wound per id needs 6 weeks of iv abx for osteo Subjective Constitutional: Reports: no symptoms Allergies: Coded Allergies: No Known Allergies (Unverified , 09/14/16) Objective Last 24 Hour Vital Signs Date Time Temp Pulse Resp B/P Pulse Ox O2 Delivery O2 Flow Rate FiO2 09/29/16 15:30 98.6 73 18 143/72 95 Room Air 09/29/16 13:23 133/71 09/29/16 11:47 97.9 63 19 133/71 95 Room Air 09/29/16 08:37 128/62 09/29/16 08:20 98.2 69 19 128/62 95 Room Air 09/29/16 06:04 113/67 09/29/16 04:00 99.0 75 20 113/67 97 Room Air 09/29/16 00:00 99.1 70 20 146/63 91 Room Air 09/28/16 21:21 147/73 09/28/16 20:02 100.0 70 20 147/73 92 Room Air 09/28/16 17:38 146/77 Intake and Output 09/28/16 09/29/16 19:00 07:00 Intake Total 1135.000 ml 485 ml Balance 1135.000 ml 485 ml Intake Oral 760 ml IV Total 375.000 ml 485 ml # Voids 4 4 # Bowel Movements 1 Laboratory Tests 09/29/16 06:05: White Blood Count 4.7L, Red Blood Count 3.08L, Hemoglobin 9.7L, Hematocrit 27.8L , Mean Corpuscular Volume 90, Mean Corpuscular Hemoglobin 31.6H, Mean Corpuscular Hemoglobin Concent 35.0, Red Cell Distribution Width 11.7, Platelet Count 110L, Mean Platelet Volume 9.0, Neutrophils (%) (Auto) 65.4, Lymphocytes ( %) (Auto) 21.2, Monocytes (%) (Auto) 11.2H, Eosinophils (%) (Auto) 1.6, Basophils (%) (Auto) 0.7, Sodium Level 136, Potassium Level 3.7, Chloride Level 96L, Carbon Dioxide Level 27, Anion Gap 13, Blood Urea Nitrogen 7, Creatinine 0.8, Estimat Glomerular Filtration Rate > 60, Glucose Level 146H, Calcium Level 8.6 09/29/16 15:00: Vancomycin Level Trough 12.0 Height (Feet): 5 Height (Inches): 4.00 Weight (Pounds): 153 Cardiovascular: normal rate Respiratory/Chest: lungs clear Pauline Rhodes MD Sep 29, 2016 16:48
--- NOTE | 2016-09-29 18:47 | Podiatric Progress Note ---
Assessment/Plan Patient Anju Clemons is a 61 year old female who was admitted on Sep 20, 2016 at 08: 59 with left foot cellulitis Problems: (1) Cellulitis of left foot (2) Acute foreign body of foot (3) Diabetes mellitus Assessment/Plan - Patient is doing well. Pain is well managed and she reports no nausea, vomiting, fevers, or chills. Continue with discharge planning - Continue using the walker and weight bearing on left heel - IV antibiotic recommendations per infectious disease specialist - Will follow up patient as outpatient for suture removal Subjective Day of Surgery: 09/26/16 Reason for consult Left foot cellulitis Procedure Performed Left foot I&D with removal of foreign body Allergies: Coded Allergies: No Known Allergies (Unverified , 09/14/16) Subjective Patient is doing well. No pain, nausea, vomiting, fevers, or chills reported. Patient has been ambulating using the left heel and a walker. Objective Exam Last 24 Hour Vital Signs Date Time Temp Pulse Resp B/P Pulse Ox O2 Delivery O2 Flow Rate FiO2 09/29/16 17:14 143/72 09/29/16 15:30 98.6 73 18 143/72 95 Room Air 09/29/16 13:23 133/71 09/29/16 11:47 97.9 63 19 133/71 95 Room Air 09/29/16 08:37 128/62 09/29/16 08:20 98.2 69 19 128/62 95 Room Air 09/29/16 06:04 113/67 09/29/16 04:00 99.0 75 20 113/67 97 Room Air 09/29/16 00:00 99.1 70 20 146/63 91 Room Air 09/28/16 21:21 147/73 09/28/16 20:02 100.0 70 20 147/73 92 Room Air Laboratory Tests Test 09/29/16 06:05 09/29/16 15:00 White Blood Count 4.7 K/UL (4.8-10.8) L Red Blood Count 3.08 M/UL (4.20-5.40) L Hemoglobin 9.7 G/DL (12.0-16.0) L Hematocrit 27.8 % (37.0-47.0) L Mean Corpuscular Volume 90 FL (80-99) Mean Corpuscular Hemoglobin 31.6 PG (27.0-31.0) H Mean Corpuscular Hemoglobin Concent 35.0 G/DL (32.0-36.0) Red Cell Distribution Width 11.7 % (11.6-14.8) Platelet Count 110 K/UL (150-450) L Mean Platelet Volume 9.0 FL (6.5-10.1) Neutrophils (%) (Auto) 65.4 % (45.0-75.0) Lymphocytes (%) (Auto) 21.2 % (20.0-45.0) Monocytes (%) (Auto) 11.2 % (1.0-10.0) H Eosinophils (%) (Auto) 1.6 % (0.0-3.0) Basophils (%) (Auto) 0.7 % (0.0-2.0) Sodium Level 136 mEQ/L (135-145) Potassium Level 3.7 mEQ/L (3.4-4.9) Chloride Level 96 mEQ/L (98-107) L Carbon Dioxide Level 27 mEQ/L (20-30) Anion Gap 13 (5-15) Blood Urea Nitrogen 7 mg/dL (7-23) Creatinine 0.8 mg/dL (0.5-0.9) Estimat Glomerular Filtration Rate > 60 mL/min (>60) Glucose Level 146 mg/dL (74-106) H Calcium Level 8.6 mg/dL (8.6-10.2) Vancomycin Level Trough 12.0 ug/mL (5.0-12.0) Microbiology Date/Time Source Procedure Growth Status 09/20/16 09:16 Blood Blood Culture - Final NO GROWTH AFTER 5 DAYS Complete 09/25/16 20:00 Wound Anaerobic Culture - Preliminary NO GROWTH AFTER 48 HOURS Resulted 09/26/16 08:35 Foot Left Gram Stain - Final Resulted 09/26/16 08:35 Foot Left Aerobic Culture - Preliminary Resulted 09/26/16 08:35 Foot Left Anaerobic Culture - Preliminary NO GROWTH AFTER 48 HOURS Resulted Exam Narrative Dressings are clean, dry, and in tact. Toes are exposed through the dressings and patient is neurovascularly in tact and is able to move the toes. Mango Vitale DPM Sep 29, 2016 18:47
--- NOTE | 2016-09-29 19:47 | Infectious Diseases Prog Note ---
Assessment/Plan Problems: (1) Acute foreign body of foot Assessment & Plan: S/P removal by cartridge belt puncher , wound culture grew MSSA, already on wide spectrum antibiotics , will treat for four weeks from the date of her surgery date (2) Cellulitis of left foot Assessment & Plan: due to staph aureus methicillin sensitive , with possible underlying osteomyelitis , continue vancomycin, metronidazole and ceftazidime empirically , MRI was suggestive of osteomyelitis, will need 4 weeks of antibiotics therapy for left foot osteomyelitis , starting from 09/26/16. EOT (3) Diabetes mellitus Assessment & Plan: recommend tight glycemic control to keep blood glucose between 80-120 (4) HTN (hypertension) Assessment & Plan: continue meds to keep BP <140 (5) Fever Assessment & Plan: suspect due to surgical wound, continue current antibiotics regimen, monitor vitals Subjective Musculoskeletal: Reports: pain, swelling Allergies: Coded Allergies: No Known Allergies (Unverified , 09/14/16) Subjective left foot surgical wound covered with dressing, no drainage or bleeding. Objective Vital Signs Last 24 Hour Vital Signs Date Time Temp Pulse Resp B/P Pulse Ox O2 Delivery O2 Flow Rate FiO2 09/29/16 17:14 143/72 09/29/16 15:30 98.6 73 18 143/72 95 Room Air 09/29/16 13:23 133/71 09/29/16 11:47 97.9 63 19 133/71 95 Room Air 09/29/16 08:37 128/62 09/29/16 08:20 98.2 69 19 128/62 95 Room Air 09/29/16 06:04 113/67 09/29/16 04:00 99.0 75 20 113/67 97 Room Air 09/29/16 00:00 99.1 70 20 146/63 91 Room Air 09/28/16 21:21 147/73 09/28/16 20:02 100.0 70 20 147/73 92 Room Air Height (Feet): 5 Height (Inches): 4.00 Weight (Pounds): 153 General Appearance: WD/WN, no acute distress HEENT: normocephalic, atraumatic, anicteric, mucous membranes moist Respiratory/Chest: chest wall non-tender, lungs clear, normal breath sounds, no respiratory distress, no accessory muscle use Cardiovascular: normal peripheral pulses, normal rate, regular rhythm, no gallop/murmur, no JVD Abdomen: normal bowel sounds, soft, non tender, no organomegaly, non distended , no mass, no scars Skin: no rash, no lesions, other - left foot surgical wound covered with dressing Laboratory Tests Test 09/29/16 06:05 09/29/16 15:00 White Blood Count 4.7 K/UL (4.8-10.8) L Red Blood Count 3.08 M/UL (4.20-5.40) L Hemoglobin 9.7 G/DL (12.0-16.0) L Hematocrit 27.8 % (37.0-47.0) L Mean Corpuscular Volume 90 FL (80-99) Mean Corpuscular Hemoglobin 31.6 PG (27.0-31.0) H Mean Corpuscular Hemoglobin Concent 35.0 G/DL (32.0-36.0) Red Cell Distribution Width 11.7 % (11.6-14.8) Platelet Count 110 K/UL (150-450) L Mean Platelet Volume 9.0 FL (6.5-10.1) Neutrophils (%) (Auto) 65.4 % (45.0-75.0) Lymphocytes (%) (Auto) 21.2 % (20.0-45.0) Monocytes (%) (Auto) 11.2 % (1.0-10.0) H Eosinophils (%) (Auto) 1.6 % (0.0-3.0) Basophils (%) (Auto) 0.7 % (0.0-2.0) Sodium Level 136 mEQ/L (135-145) Potassium Level 3.7 mEQ/L (3.4-4.9) Chloride Level 96 mEQ/L (98-107) L Carbon Dioxide Level 27 mEQ/L (20-30) Anion Gap 13 (5-15) Blood Urea Nitrogen 7 mg/dL (7-23) Creatinine 0.8 mg/dL (0.5-0.9) Estimat Glomerular Filtration Rate > 60 mL/min (>60) Glucose Level 146 mg/dL (74-106) H Calcium Level 8.6 mg/dL (8.6-10.2) Vancomycin Level Trough 12.0 ug/mL (5.0-12.0) Current Medications Medications (Trade) Dose Ordered Sig/Jesse Route PRN Reason Start Time Stop Time Status Last Admin Dose Admin Ceftazidime/ Dextrose (Fortaz/D5W) 110 ml @ 220 mls/hr Q12H IV 09/23/16 13:00 09/30/16 12:59 09/29/16 13:39 Dextrose (Dextrose 50%) STAT PRN IV Hypoglycemia 09/20/16 20:45 10/20/16 20:44 Heparin Sodium (Porcine) (Heparin 5000 units/ml) 5,000 units Q12HR SUBQ 09/21/16 10:00 10/21/16 09:59 09/23/16 21:07 Hydralazine HCl (Apresoline) 25 mg Q4H PRN ORAL sbp>165 09/23/16 22:58 10/23/16 22:57 Hydralazine HCl 50 mg 50 mg Q8HR ORAL 09/28/16 14:00 10/28/16 13:59 09/29/16 13:23 Insulin Aspart (NovoLOG) BEFORE MEALS AND HS SUBQ 09/20/16 22:00 10/20/16 21:59 09/29/16 06:11 Lisinopril 20 mg 20 mg BID ORAL 09/22/16 18:00 10/22/16 17:59 09/29/16 17:14 Metoclopramide HCl (Reglan) 10 mg TIAC ORAL 09/24/16 11:30 10/24/16 11:29 09/29/16 17:14 Metronidazole (Flagyl) 100 ml @ 100 mls/hr Q8H IV 09/26/16 19:00 10/03/16 18:59 09/29/16 11:00 Nateglinide 120 mg 120 mg TIAC ORAL 09/25/16 16:30 10/25/16 16:29 09/29/16 17:13 Ondansetron HCl (Zofran) 4 mg Q6H PRN IVP Nausea & Vomiting 09/20/16 20:45 10/20/16 20:44 09/23/16 21:06 Vancomycin HCl (Vanco rx to dose) 1 ea DAILY PRN MISC PRN RX PROTOCOL 09/20/16 17:30 10/20/16 17:29 Vancomycin HCl 750 mg/Dextrose 275 ml @ 183.708 mls/hr Q12HR@0400,1600 IVPB 09/26/16 16:00 09/29/16 23:59 09/29/16 18:33 Vancomycin HCl 1 gm/Dextrose 275 ml @ 183.708 mls/hr ONCE ONCE IVPB 09/30/16 00:00 09/30/16 01:29 Vancomycin HCl/ Dextrose (Vancomycin/D5W) 275 ml @ 183.708 mls/hr Q12H IVPB 09/30/16 09:00 10/05/16 08:59 Mino Paz M.D. Sep 29, 2016 19:47
--- NOTE | 2016-09-29 20:58 | General Progress Note ---
Assessment/Plan Assessment/Plan ASSESSMENT: 1. Anemia secondary to chronic disease. esr 106. does not require iron 2. Thrombcytopenia 2/2 infection v meds (potential vanco) 3. Left foot cellulitis with foreign body in fourth toe s/p i&d 4. Cellulitis of left foot, is on abx 5. Diabetes mellitus. 6. Hypertension. RECOMMENDATIONS: 1. Monitor counts. 2. Peripheral smear reviewed 3. Continue abx per ID service. 4. Pain control. 5. DVT ppx with heparin sq 6. GI ppx as needed. 7. DW staff. Thank you, Bogdan Tidwell MD Subjective Constitutional: Reports: no symptoms HEENT: Reports: no symptoms Cardiovascular: Reports: no symptoms Respiratory: Reports: no symptoms Gastrointestinal/Abdominal: Reports: no symptoms Genitourinary: Reports: no symptoms Neurologic/Psychiatric: Reports: no symptoms Endocrine: Reports: no symptoms Hematologic/Lymphatic: Reports: anemia Allergies: Coded Allergies: No Known Allergies (Unverified , 09/14/16) Subjective no fevers or chills, no hematochezia or hematemesis, having some left foot pain/ swelling Objective Last 24 Hour Vital Signs Date Time Temp Pulse Resp B/P Pulse Ox O2 Delivery O2 Flow Rate FiO2 09/29/16 17:14 143/72 09/29/16 15:30 98.6 73 18 143/72 95 Room Air 09/29/16 13:23 133/71 09/29/16 11:47 97.9 63 19 133/71 95 Room Air 09/29/16 08:37 128/62 09/29/16 08:20 98.2 69 19 128/62 95 Room Air 09/29/16 06:04 113/67 09/29/16 04:00 99.0 75 20 113/67 97 Room Air 09/29/16 00:00 99.1 70 20 146/63 91 Room Air 09/28/16 21:21 147/73 Intake and Output 09/28/16 09/29/16 19:00 07:00 Intake Total 1135.000 ml 485 ml Balance 1135.000 ml 485 ml Intake Oral 760 ml IV Total 375.000 ml 485 ml # Voids 4 4 # Bowel Movements 1 Laboratory Tests 09/29/16 06:05: White Blood Count 4.7L, Red Blood Count 3.08L, Hemoglobin 9.7L, Hematocrit 27.8L , Mean Corpuscular Volume 90, Mean Corpuscular Hemoglobin 31.6H, Mean Corpuscular Hemoglobin Concent 35.0, Red Cell Distribution Width 11.7, Platelet Count 110L, Mean Platelet Volume 9.0, Neutrophils (%) (Auto) 65.4, Lymphocytes ( %) (Auto) 21.2, Monocytes (%) (Auto) 11.2H, Eosinophils (%) (Auto) 1.6, Basophils (%) (Auto) 0.7, Sodium Level 136, Potassium Level 3.7, Chloride Level 96L, Carbon Dioxide Level 27, Anion Gap 13, Blood Urea Nitrogen 7, Creatinine 0.8, Estimat Glomerular Filtration Rate > 60, Glucose Level 146H, Calcium Level 8.6 09/29/16 15:00: Vancomycin Level Trough 12.0 Height (Feet): 5 Height (Inches): 4.00 Weight (Pounds): 153 General Appearance: no apparent distress EENT: TMs normal Neck: normal alignment Cardiovascular: regular rhythm Respiratory/Chest: lungs clear Extremities: non-tender Edema: 1+ Leg (L), 1+ Leg (R) Edema: mild edema Neurologic: alert Skin: warm/dry Bogdan Tidwell Sep 29, 2016 20:58
[2016-09-29] MEDS ORDERED: Tubing IV Secondary IV ONE (21:14)
--- NOTE | 2016-09-29 22:19 | General Progress Note ---
Assessment/Plan Assessment/Plan Assessment/Recommendation N/V x 1 day - resolved Presumed due to meds and diabetic gastroparesis would Rx with PRN zofran will see PRN Subjective Allergies: Coded Allergies: No Known Allergies (Unverified , 09/14/16) Subjective no further vomiting feels OK Objective Last 24 Hour Vital Signs Date Time Temp Pulse Resp B/P Pulse Ox O2 Delivery O2 Flow Rate FiO2 09/29/16 21:38 154/76 09/29/16 20:00 98.2 83 22 154/76 95 Room Air 09/29/16 17:14 143/72 09/29/16 15:30 98.6 73 18 143/72 95 Room Air 09/29/16 13:23 133/71 09/29/16 11:47 97.9 63 19 133/71 95 Room Air 09/29/16 08:37 128/62 09/29/16 08:20 98.2 69 19 128/62 95 Room Air 09/29/16 06:04 113/67 09/29/16 04:00 99.0 75 20 113/67 97 Room Air 09/29/16 00:00 99.1 70 20 146/63 91 Room Air Intake and Output 09/28/16 09/29/16 19:00 07:00 Intake Total 1135.000 ml 485 ml Balance 1135.000 ml 485 ml Intake Oral 760 ml IV Total 375.000 ml 485 ml # Voids 4 4 # Bowel Movements 1 Laboratory Tests 09/29/16 06:05: White Blood Count 4.7L, Red Blood Count 3.08L, Hemoglobin 9.7L, Hematocrit 27.8L , Mean Corpuscular Volume 90, Mean Corpuscular Hemoglobin 31.6H, Mean Corpuscular Hemoglobin Concent 35.0, Red Cell Distribution Width 11.7, Platelet Count 110L, Mean Platelet Volume 9.0, Neutrophils (%) (Auto) 65.4, Lymphocytes ( %) (Auto) 21.2, Monocytes (%) (Auto) 11.2H, Eosinophils (%) (Auto) 1.6, Basophils (%) (Auto) 0.7, Sodium Level 136, Potassium Level 3.7, Chloride Level 96L, Carbon Dioxide Level 27, Anion Gap 13, Blood Urea Nitrogen 7, Creatinine 0.8, Estimat Glomerular Filtration Rate > 60, Glucose Level 146H, Calcium Level 8.6 09/29/16 15:00: Vancomycin Level Trough 12.0 Height (Feet): 5 Height (Inches): 4.00 Weight (Pounds): 153 Objective WDWN NCAT supple CTA RRR Soft NT ND no edema non focal ROBEL MARTIN Sep 29, 2016 22:19
[2016-09-30] MEDS ORDERED: Vancomycin 1gm in D5W 275ml IVPB ONE ×2
[2016-09-30] MEDS: D5W IV SCH (01:29)
[2016-09-30] MEDS: CEFTAZIDIME IV SCH (01:29)
[2016-09-30] MEDS: Flagyl 500mg/NS 100ml Pre-Mix IV SCH ×2 (03:09→11:18)
[2016-09-30 04:00] VITALS: BP 142/73
[2016-09-30] MEDS: HydrALAZINE 50mg tab ORAL SCH ×2 (05:32→14:14)
[2016-09-30] MEDS: NovoLOG Insulin Flexpen SUBQ SCH ×3 (06:02→16:30)
[2016-09-30 06:38] LABS: EOSINOPHILS % (AUTO) 2.8 % (0.0-3.0); MEAN CORPUSCULAR HEMOGLOBIN 31.7 PG (27.0-31.0); MEAN CORPUSCULAR HGB CONC 34.8 G/DL (32.0-36.0); MEAN CORPUSCULAR VOLUME 91 FL (80-99); MEAN PLATELET VOLUME 10.4 FL (6.5-10.1); MONOCYTES % (AUTO) 12.5 % (1.0-10.0); NEUTROPHILS % (AUTO) 48.7 % (45.0-75.0); PLATELET COUNT 112 K/UL (150-450); RED BLOOD COUNT 2.92 M/UL (4.20-5.40); RED CELL DISTRIBUTION WIDTH 11.9 % (11.6-14.8); WHITE BLOOD COUNT 3.5 K/UL (4.8-10.8)
[2016-09-30 07:08] LABS: ANION GAP 12 (5-15); CALCIUM 8.5 mg/dL (8.6-10.2); CARBON DIOXIDE 27 mEQ/L (20-30); CHLORIDE 101 mEQ/L (98-107); CREATININE 0.8 mg/dL (0.5-0.9); GLOMERULAR FILTRATION RATE > 60 mL/min (>60); HEMOLYSIS 1; POTASSIUM 3.6 mEQ/L (3.4-4.9); SODIUM 140 mEQ/L (135-145)
[2016-09-30 08:00] VITALS: BP 137/73
[2016-09-30] MEDS ORDERED: Vancomycin 750mg/D5W 275ml IVPB SCH ×2 (09:00)
[2016-09-30] MEDS: Heparin 5000 units/ml inj SUBQ SCH (09:44)
[2016-09-30] MEDS: Lisinopril 20mg tab ORAL SCH (09:45)
--- NOTE | 2016-09-30 11:04 | GI Progress Note ---
Assessment/Plan Problems: (1) N&V (nausea and vomiting) ICD Codes: R11.2 - Nausea with vomiting, unspecified SNOMED: 15647004 (2) Diabetes ICD Codes: E11.9 - Type 2 diabetes mellitus without complications SNOMED: 10346874 Qualifiers: Qualified Codes: E11.628 - Type 2 diabetes mellitus with other skin complications (3) HTN (hypertension) ICD Codes: I10 - Essential (primary) hypertension SNOMED: 48594128 Status: stable Status Narrative Discussed with Dr. Obrien. Assessment/Plan okay for DC per GI standpoint ordered OB stool N/V x 1 day - resolved Presumed due to meds and diabetic gastroparesis >> cont Reglan ATC zofran prn fu labs abx consider Rx zofran outpatient GI procedures Subjective Subjective denies N/V Objective Last 24 Hour Vital Signs Date Time Temp Pulse Resp B/P Pulse Ox O2 Delivery O2 Flow Rate FiO2 09/30/16 09:45 137/73 09/30/16 08:00 97.7 60 18 137/73 95 Room Air 09/30/16 05:32 142/73 09/30/16 04:00 98.2 62 18 142/73 94 Room Air 09/29/16 23:55 98.4 74 20 141/66 95 Room Air 09/29/16 21:38 154/76 09/29/16 20:00 98.2 83 22 154/76 95 Room Air 09/29/16 17:14 143/72 09/29/16 15:30 98.6 73 18 143/72 95 Room Air 09/29/16 13:23 133/71 09/29/16 11:47 97.9 63 19 133/71 95 Room Air Intake and Output 09/29/16 09/30/16 19:00 07:00 Intake Total 760 ml 685.000 ml Balance 760 ml 685.000 ml Intake Oral 760 ml 200 ml IV Total 485.000 ml # Voids 6 3 # Bowel Movements 2 Laboratory Tests Test 09/29/16 15:00 09/30/16 05:00 Vancomycin Level Trough 12.0 ug/mL (5.0-12.0) White Blood Count 3.5 K/UL (4.8-10.8) L Red Blood Count 2.92 M/UL (4.20-5.40) L Hemoglobin 9.2 G/DL (12.0-16.0) L Hematocrit 26.6 % (37.0-47.0) L Mean Corpuscular Volume 91 FL (80-99) Mean Corpuscular Hemoglobin 31.7 PG (27.0-31.0) H Mean Corpuscular Hemoglobin Concent 34.8 G/DL (32.0-36.0) Red Cell Distribution Width 11.9 % (11.6-14.8) Platelet Count 112 K/UL (150-450) L Mean Platelet Volume 10.4 FL (6.5-10.1) H Neutrophils (%) (Auto) 48.7 % (45.0-75.0) Lymphocytes (%) (Auto) 35.0 % (20.0-45.0) Monocytes (%) (Auto) 12.5 % (1.0-10.0) H Eosinophils (%) (Auto) 2.8 % (0.0-3.0) Basophils (%) (Auto) 1.0 % (0.0-2.0) Sodium Level 140 mEQ/L (135-145) Potassium Level 3.6 mEQ/L (3.4-4.9) Chloride Level 101 mEQ/L (98-107) Carbon Dioxide Level 27 mEQ/L (20-30) Anion Gap 12 (5-15) Blood Urea Nitrogen 8 mg/dL (7-23) Creatinine 0.8 mg/dL (0.5-0.9) Estimat Glomerular Filtration Rate > 60 mL/min (>60) Glucose Level 115 mg/dL (74-106) H Calcium Level 8.5 mg/dL (8.6-10.2) L Height (Feet): 5 Height (Inches): 4.00 Weight (Pounds): 153 General Appearance: no apparent distress, alert Cardiovascular: normal rate Respiratory/Chest: normal breath sounds, no respiratory distress Abdominal Exam: normal bowel sounds, non tender, soft Eileen Grande N.P. Sep 30, 2016 11:04
[2016-09-30 12:00] VITALS: BP 157/67
--- NOTE | 2016-09-30 12:33 | General Progress Note ---
Assessment/Plan Status: stable Assessment/Plan status: (1) Acute foreign body of foot (2) Cellulitis of left foot (3) Diabetes mellitus (4) HTN (hypertension) (5) Anemia Plan: on hydralazine for bp- on Reglan - BP and BS control- adjust BP meds- Antibiotics- Had Surgical procedure per orders- Subjective ROS Limited/Unobtainable: No Allergies: Coded Allergies: No Known Allergies (Unverified , 09/14/16) Objective Last 24 Hour Vital Signs Date Time Temp Pulse Resp B/P Pulse Ox O2 Delivery O2 Flow Rate FiO2 09/30/16 09:45 137/73 09/30/16 08:00 97.7 60 18 137/73 95 Room Air 09/30/16 05:32 142/73 09/30/16 04:00 98.2 62 18 142/73 94 Room Air 09/29/16 23:55 98.4 74 20 141/66 95 Room Air 09/29/16 21:38 154/76 09/29/16 20:00 98.2 83 22 154/76 95 Room Air 09/29/16 17:14 143/72 09/29/16 15:30 98.6 73 18 143/72 95 Room Air 09/29/16 13:23 133/71 Intake and Output 09/29/16 09/30/16 19:00 07:00 Intake Total 760 ml 685.000 ml Balance 760 ml 685.000 ml Intake Oral 760 ml 200 ml IV Total 485.000 ml # Voids 6 3 # Bowel Movements 2 Laboratory Tests 09/29/16 15:00: Vancomycin Level Trough 12.0 09/30/16 05:00: White Blood Count 3.5L, Red Blood Count 2.92L, Hemoglobin 9.2L, Hematocrit 26.6L , Mean Corpuscular Volume 91, Mean Corpuscular Hemoglobin 31.7H, Mean Corpuscular Hemoglobin Concent 34.8, Red Cell Distribution Width 11.9, Platelet Count 112L, Mean Platelet Volume 10.4H, Neutrophils (%) (Auto) 48.7, Lymphocytes (%) (Auto) 35.0, Monocytes (%) (Auto) 12.5H, Eosinophils (%) (Auto) 2.8, Basophils (%) (Auto) 1.0, Sodium Level 140, Potassium Level 3.6, Chloride Level 101, Carbon Dioxide Level 27, Anion Gap 12, Blood Urea Nitrogen 8, Creatinine 0.8, Estimat Glomerular Filtration Rate > 60, Glucose Level 115H, Calcium Level 8.5L Height (Feet): 5 Height (Inches): 4.00 Weight (Pounds): 153 General Appearance: no apparent distress Objective PE not changed GUI QUEVEDO Sep 30, 2016 12:33
--- NOTE | 2016-09-30 13:26 | General Progress Note ---
Assessment/Plan Problem List: (1) Diabetes ICD Codes: E11.9 - Type 2 diabetes mellitus without complications SNOMED: 73363715 Qualifiers: Qualified Codes: E11.628 - Type 2 diabetes mellitus with other skin complications (2) Cellulitis ICD Codes: L03.90 - Cellulitis, unspecified SNOMED: 995624784 Qualifiers: Qualified Codes: L03.116 - Cellulitis of left lower limb (3) HTN (hypertension) ICD Codes: I10 - Essential (primary) hypertension SNOMED: 16645547 (4) Cellulitis of left foot ICD Codes: L03.116 - Cellulitis of left lower limb SNOMED: 406771945 Status: progressing Assessment/Plan abx per id afebrile today no chills s/p i&d of foot wound osteo of the wound per id needs 6 weeks of iv abx for osteo Subjective ROS Limited/Unobtainable: Yes Allergies: Coded Allergies: No Known Allergies (Unverified , 09/14/16) Objective Last 24 Hour Vital Signs Date Time Temp Pulse Resp B/P Pulse Ox O2 Delivery O2 Flow Rate FiO2 09/30/16 09:45 137/73 09/30/16 08:00 97.7 60 18 137/73 95 Room Air 09/30/16 05:32 142/73 09/30/16 04:00 98.2 62 18 142/73 94 Room Air 09/29/16 23:55 98.4 74 20 141/66 95 Room Air 09/29/16 21:38 154/76 09/29/16 20:00 98.2 83 22 154/76 95 Room Air 09/29/16 17:14 143/72 09/29/16 15:30 98.6 73 18 143/72 95 Room Air Intake and Output 09/29/16 09/30/16 19:00 07:00 Intake Total 760 ml 685.000 ml Balance 760 ml 685.000 ml Intake Oral 760 ml 200 ml IV Total 485.000 ml # Voids 6 3 # Bowel Movements 2 Laboratory Tests 09/29/16 15:00: Vancomycin Level Trough 12.0 09/30/16 05:00: White Blood Count 3.5L, Red Blood Count 2.92L, Hemoglobin 9.2L, Hematocrit 26.6L , Mean Corpuscular Volume 91, Mean Corpuscular Hemoglobin 31.7H, Mean Corpuscular Hemoglobin Concent 34.8, Red Cell Distribution Width 11.9, Platelet Count 112L, Mean Platelet Volume 10.4H, Neutrophils (%) (Auto) 48.7, Lymphocytes (%) (Auto) 35.0, Monocytes (%) (Auto) 12.5H, Eosinophils (%) (Auto) 2.8, Basophils (%) (Auto) 1.0, Sodium Level 140, Potassium Level 3.6, Chloride Level 101, Carbon Dioxide Level 27, Anion Gap 12, Blood Urea Nitrogen 8, Creatinine 0.8, Estimat Glomerular Filtration Rate > 60, Glucose Level 115H, Calcium Level 8.5L Height (Feet): 5 Height (Inches): 4.00 Weight (Pounds): 153 Cardiovascular: regular rhythm Respiratory/Chest: lungs clear Abdomen: non tender Pauline Rhodes MD Sep 30, 2016 13:26
[2016-09-30 14:14] VITALS: BP 157/67
--- NOTE | 2016-09-30 15:26 | General Progress Note ---
Assessment/Plan Assessment/Plan ASSESSMENT: 1. Anemia secondary to chronic disease. esr 106. does not require iron 2. Thrombcytopenia 2/2 infection v meds (potential vanco) 3. Left foot cellulitis with foreign body in fourth toe s/p i&d 4. Cellulitis of left foot, is on abx 5. Diabetes mellitus. 6. Hypertension. RECOMMENDATIONS: 1. Monitor counts. 2. Peripheral smear reviewed 3. Continue abx per ID service. 4. Pain control. 5. DVT ppx with heparin sq 6. GI ppx as needed. 7. DW staff. Thank you, Bogdan Tidwell MD Subjective Constitutional: Reports: no symptoms HEENT: Reports: no symptoms Cardiovascular: Reports: no symptoms Respiratory: Reports: no symptoms Gastrointestinal/Abdominal: Reports: poor appetite Genitourinary: Reports: no symptoms Neurologic/Psychiatric: Reports: no symptoms Endocrine: Reports: no symptoms Hematologic/Lymphatic: Reports: anemia Allergies: Coded Allergies: No Known Allergies (Unverified , 09/14/16) Subjective no fevers or chills, no hematochezia or hematemesis, some left foot pain/ swelling Objective Last 24 Hour Vital Signs Date Time Temp Pulse Resp B/P Pulse Ox O2 Delivery O2 Flow Rate FiO2 09/30/16 14:14 157/67 09/30/16 12:00 97.9 63 22 157/67 96 Room Air 09/30/16 09:45 137/73 09/30/16 08:00 97.7 60 18 137/73 95 Room Air 09/30/16 05:32 142/73 09/30/16 04:00 98.2 62 18 142/73 94 Room Air 09/29/16 23:55 98.4 74 20 141/66 95 Room Air 09/29/16 21:38 154/76 09/29/16 20:00 98.2 83 22 154/76 95 Room Air 09/29/16 17:14 143/72 09/29/16 15:30 98.6 73 18 143/72 95 Room Air Intake and Output 09/29/16 09/30/16 19:00 07:00 Intake Total 760 ml 685.000 ml Balance 760 ml 685.000 ml Intake Oral 760 ml 200 ml IV Total 485.000 ml # Voids 6 3 # Bowel Movements 2 Laboratory Tests 09/30/16 05:00: White Blood Count 3.5L, Red Blood Count 2.92L, Hemoglobin 9.2L, Hematocrit 26.6L , Mean Corpuscular Volume 91, Mean Corpuscular Hemoglobin 31.7H, Mean Corpuscular Hemoglobin Concent 34.8, Red Cell Distribution Width 11.9, Platelet Count 112L, Mean Platelet Volume 10.4H, Neutrophils (%) (Auto) 48.7, Lymphocytes (%) (Auto) 35.0, Monocytes (%) (Auto) 12.5H, Eosinophils (%) (Auto) 2.8, Basophils (%) (Auto) 1.0, Sodium Level 140, Potassium Level 3.6, Chloride Level 101, Carbon Dioxide Level 27, Anion Gap 12, Blood Urea Nitrogen 8, Creatinine 0.8, Estimat Glomerular Filtration Rate > 60, Glucose Level 115H, Calcium Level 8.5L Height (Feet): 5 Height (Inches): 4.00 Weight (Pounds): 153 General Appearance: no apparent distress EENT: TMs normal Neck: supple Cardiovascular: regular rhythm Respiratory/Chest: normal breath sounds Abdomen: soft Extremities: non-tender Edema: 1+ Leg (L), 1+ Leg (R) Edema: mild edema Neurologic: alert Skin: warm/dry Bogdan Tidwell Sep 30, 2016 15:26
--- NOTE | 2016-09-30 17:14 | Infectious Diseases Prog Note ---
Assessment/Plan Problems: (1) Acute foreign body of foot Assessment & Plan: S/P removal by cloth seconds sorter , wound culture grew MSSA, already on wide spectrum antibiotics , will treat for four weeks from the date of her surgery (2) Cellulitis of left foot Assessment & Plan: due to staph aureus methicillin sensitive , with possible underlying osteomyelitis , continue vancomycin, metronidazole and ceftazidime empirically , MRI was suggestive of osteomyelitis, will need 4 weeks of antibiotics therapy for left foot osteomyelitis , starting from 09/26/16. EOT (3) Diabetes mellitus Assessment & Plan: recommend tight glycemic control to keep blood glucose between 80-120 (4) HTN (hypertension) Assessment & Plan: continue meds to keep BP <140 (5) Fever Assessment & Plan: improved, suspect due to surgical wound, continue current antibiotics regimen, monitor vitals Subjective Allergies: Coded Allergies: No Known Allergies (Unverified , 09/14/16) All Systems: reviewed and negative except above Subjective left foot surgical wound covered with dressing, no drainage or bleeding. Objective Vital Signs Last 24 Hour Vital Signs Date Time Temp Pulse Resp B/P Pulse Ox O2 Delivery O2 Flow Rate FiO2 09/30/16 14:14 157/67 09/30/16 12:00 97.9 63 22 157/67 96 Room Air 09/30/16 09:45 137/73 09/30/16 08:00 97.7 60 18 137/73 95 Room Air 09/30/16 05:32 142/73 09/30/16 04:00 98.2 62 18 142/73 94 Room Air 09/29/16 23:55 98.4 74 20 141/66 95 Room Air 09/29/16 21:38 154/76 09/29/16 20:00 98.2 83 22 154/76 95 Room Air 09/29/16 17:14 143/72 Height (Feet): 5 Height (Inches): 4.00 Weight (Pounds): 153 General Appearance: WD/WN, no acute distress HEENT: normocephalic, atraumatic, anicteric, mucous membranes moist, PERRL Respiratory/Chest: chest wall non-tender, lungs clear, normal breath sounds, no respiratory distress, no accessory muscle use Cardiovascular: normal peripheral pulses, normal rate, regular rhythm, no gallop/murmur, no JVD Abdomen: normal bowel sounds, soft, non tender, no organomegaly, non distended , no mass, no scars Extremities: no cyanosis, no clubbing, other - left foot surgical wound covered with dressing, unable to assess Skin: no rash, no lesions, no ulcers Laboratory Tests Test 09/30/16 05:00 White Blood Count 3.5 K/UL (4.8-10.8) L Red Blood Count 2.92 M/UL (4.20-5.40) L Hemoglobin 9.2 G/DL (12.0-16.0) L Hematocrit 26.6 % (37.0-47.0) L Mean Corpuscular Volume 91 FL (80-99) Mean Corpuscular Hemoglobin 31.7 PG (27.0-31.0) H Mean Corpuscular Hemoglobin Concent 34.8 G/DL (32.0-36.0) Red Cell Distribution Width 11.9 % (11.6-14.8) Platelet Count 112 K/UL (150-450) L Mean Platelet Volume 10.4 FL (6.5-10.1) H Neutrophils (%) (Auto) 48.7 % (45.0-75.0) Lymphocytes (%) (Auto) 35.0 % (20.0-45.0) Monocytes (%) (Auto) 12.5 % (1.0-10.0) H Eosinophils (%) (Auto) 2.8 % (0.0-3.0) Basophils (%) (Auto) 1.0 % (0.0-2.0) Sodium Level 140 mEQ/L (135-145) Potassium Level 3.6 mEQ/L (3.4-4.9) Chloride Level 101 mEQ/L (98-107) Carbon Dioxide Level 27 mEQ/L (20-30) Anion Gap 12 (5-15) Blood Urea Nitrogen 8 mg/dL (7-23) Creatinine 0.8 mg/dL (0.5-0.9) Estimat Glomerular Filtration Rate > 60 mL/min (>60) Glucose Level 115 mg/dL (74-106) H Calcium Level 8.5 mg/dL (8.6-10.2) L Current Medications Medications (Trade) Dose Ordered Sig/Jesse Route PRN Reason Start Time Stop Time Status Last Admin Dose Admin Dextrose (Dextrose 50%) STAT PRN IV Hypoglycemia 09/20/16 20:45 10/20/16 20:44 Heparin Sodium (Porcine) (Heparin 5000 units/ml) 5,000 units Q12HR SUBQ 09/21/16 10:00 10/21/16 09:59 09/23/16 21:07 Hydralazine HCl (Apresoline) 25 mg Q4H PRN ORAL sbp>165 09/23/16 22:58 10/23/16 22:57 Hydralazine HCl 50 mg 50 mg Q8HR ORAL 09/28/16 14:00 10/28/16 13:59 09/30/16 14:14 Insulin Aspart (NovoLOG) BEFORE MEALS AND HS SUBQ 09/20/16 22:00 10/20/16 21:59 09/30/16 12:00 Lisinopril (Prinivil) 20 mg BID ORAL 09/22/16 18:00 10/22/16 17:59 09/30/16 09:45 Metoclopramide HCl (Reglan) 10 mg TIAC ORAL 09/24/16 11:30 10/24/16 11:29 09/30/16 11:58 Metronidazole (Flagyl) 100 ml @ 100 mls/hr Q8H IV 09/26/16 19:00 10/03/16 18:59 09/30/16 11:18 Nateglinide 120 mg 120 mg TIAC ORAL 09/25/16 16:30 10/25/16 16:29 09/30/16 11:58 Ondansetron HCl (Zofran) 4 mg Q6H PRN IVP Nausea & Vomiting 09/20/16 20:45 10/20/16 20:44 09/23/16 21:06 Vancomycin HCl (Vanco rx to dose) 1 ea DAILY PRN MISC PRN RX PROTOCOL 09/20/16 17:30 10/20/16 17:29 Vancomycin HCl/ Dextrose (Vancomycin/D5W) 275 ml @ 183.708 mls/hr Q12H IVPB 09/30/16 09:00 10/05/16 08:59 09/30/16 09:46 Mino Paz M.D. Sep 30, 2016 17:14
--- NOTE | 2016-09-30 17:33 | Podiatric Progress Note ---
Assessment/Plan Patient Anju Clemons is a 61 year old female who was admitted on Sep 20, 2016 at 08: 61 with left foot cellulitis Problems: (1) Cellulitis of left foot (2) Acute foreign body of foot (3) Diabetes mellitus Assessment/Plan - Keep dressings clean, dry, and in tact - Non weight bearing on the left forefoot - Antibiotics per infectious disease specialist recommendations Subjective Day of Surgery: 09/26/16 Procedure Performed Left foot incision and drainage with removal of foreign body Allergies: Coded Allergies: No Known Allergies (Unverified , 09/14/16) Subjective No complaints of pain, nausea, vomiting, fevers, or chills. Patient has been ambulating on her left heel while using the walker Objective Exam Last 24 Hour Vital Signs Date Time Temp Pulse Resp B/P Pulse Ox O2 Delivery O2 Flow Rate FiO2 09/30/16 14:14 157/67 09/30/16 12:00 97.9 63 22 157/67 96 Room Air 09/30/16 09:45 137/73 09/30/16 08:00 97.7 60 18 137/73 95 Room Air 09/30/16 05:32 142/73 09/30/16 04:00 98.2 62 18 142/73 94 Room Air 09/29/16 23:55 98.4 74 20 141/66 95 Room Air 09/29/16 21:38 154/76 09/29/16 20:00 98.2 83 22 154/76 95 Room Air Laboratory Tests Test 09/30/16 05:00 White Blood Count 3.5 K/UL (4.8-10.8) L Red Blood Count 2.92 M/UL (4.20-5.40) L Hemoglobin 9.2 G/DL (12.0-16.0) L Hematocrit 26.6 % (37.0-47.0) L Mean Corpuscular Volume 91 FL (80-99) Mean Corpuscular Hemoglobin 31.7 PG (27.0-31.0) H Mean Corpuscular Hemoglobin Concent 34.8 G/DL (32.0-36.0) Red Cell Distribution Width 11.9 % (11.6-14.8) Platelet Count 112 K/UL (150-450) L Mean Platelet Volume 10.4 FL (6.5-10.1) H Neutrophils (%) (Auto) 48.7 % (45.0-75.0) Lymphocytes (%) (Auto) 35.0 % (20.0-45.0) Monocytes (%) (Auto) 12.5 % (1.0-10.0) H Eosinophils (%) (Auto) 2.8 % (0.0-3.0) Basophils (%) (Auto) 1.0 % (0.0-2.0) Sodium Level 140 mEQ/L (135-145) Potassium Level 3.6 mEQ/L (3.4-4.9) Chloride Level 101 mEQ/L (98-107) Carbon Dioxide Level 27 mEQ/L (20-30) Anion Gap 12 (5-15) Blood Urea Nitrogen 8 mg/dL (7-23) Creatinine 0.8 mg/dL (0.5-0.9) Estimat Glomerular Filtration Rate > 60 mL/min (>60) Glucose Level 115 mg/dL (74-106) H Calcium Level 8.5 mg/dL (8.6-10.2) L Microbiology Date/Time Source Procedure Growth Status 09/20/16 09:16 Blood Blood Culture - Final NO GROWTH AFTER 5 DAYS Complete 09/25/16 20:00 Wound Anaerobic Culture - Final NO GROWTH Complete 09/26/16 08:35 Foot Left Gram Stain - Final Resulted 09/26/16 08:35 Aerobic Culture - Preliminary Staphylococcus Aureus Strep Species, Gamma-Hemolytic Resulted 09/26/16 08:35 Foot Left Anaerobic Culture - Final NO GROWTH Resulted Exam Narrative Incision site is well coapted with sutures in tact. No drainage noted. Erythema and edema has improved Mango Vitale DPM Sep 30, 2016 17:33
[2016-10-03] MEDS ORDERED: ZYVOX600 MG ORAL (13:27)
--- NOTE | 2016-10-03 13:28 | Discharge Summary ---
Discharge Summary Hospital Course Date of Admission Sep 20, 2016 at 08:59 Date of Discharge Sep 30, 2016 at 17:45 Admitting Diagnosis cellulitis L foot HPI Anju Clemons is a 61 year old female who was admitted on Sep 20, 2016 at 08: 59 for Cellulitis Left Foot Hospital Course dc summary # [id number] Discharge Medications New Medications: Linezolid* (Zyvox*) 600 Mg Tablet 600 MG ORAL EVERY 12 HOURS, #46 TAB Continued Medications: Lisinopril* (Lisinopril*) 10 Mg Tablet 10 MG ORAL DAILY, TAB Metformin Hcl* (Metformin Hcl*) 500 Mg Tablet 500 MG ORAL TWICE A DAY, TAB Discharge Condition Upon Discharge: stable Discharge Disposition Patient was discharged to Home (01) Discharge Diagnoses: Benton (Autumn)Yamilet NP Oct 03, 2016 13:28
--- NOTE | 2016-10-03 22:29 | Discharge Summary 2 SIG ---
DATE OF ADMISSION: 09/20/2016 DATE OF DISCHARGE: 09/30/2016 REASON FOR ADMISSION: 61-year-old female came to emergency room complaining of intractable left foot pain. The patient stated that she was started on clindamycin few days ago and was taking medication as prescribed. However, the foot looked worse and the patient still was having pain , taking ibuprofen for pain relief. The patient rated her pain as 8/10, burning, constant, worse when foot is in standing position. Patient denies fevers, chills. No numbness. No weakness. The patient has a known history of diabetes, taking metformin. No known history of peripheral vascular disease, no known trauma or injury. Laboratory work in the emergency department reveal normal WBC. X-ray of the left foot revealed foreign body in the fifth toe, however the patient denied any trauma or possible foreign body. Technical Sales Associate, Dr. Brady was notified. The patient has evidence of anemia, hemoglobin 10.9, hematocrit 30.9. The patient failed outpatient treatment with oral antibiotics and was admitted for further management. ADMITTING DIAGNOSES: 1. Left foot cellulitis and abscess. 2. Left foot pain. 3. Foreign body fifth toe, left foot. 4. Diabetes mellitus. 5. Anemia. HOSPITAL COURSE: The patient admitted on the floor. Infectious disease doctor and survey methodologist were consulted. X-ray did not reveal any evidence of fracture or osteomyelitis, subsequently the patient went for MRI of the foot, there was no definite findings to suggest acute osteomyelitis, however osteomyelitis was not completely excludable. ID was treated empirically for osteomyelitis. Wound culture positive for Staph aureus and enterococcal faecalis. Blood culture negative. The patient noted to have elevated ESR and elevated CRP. The patient in the hospital was on intravenous vancomycin, Flagyl, and ceftazidime. Upon discharge, ID cleared on oral antibiotic for total duration of treatment for four weeks. Technical Sales Associate seen the patient. The patient subsequently undergone incision and drainage of the left foot and removal of foreign body. Technical Sales Associate was following the patient on regular basis. Wound care provided. Recommended to keep dressing clean, dry, and intact. Nonweightbearing on the left foot. Blood sugar was managed with sliding scale of insulin, stable; hemoglobin A1c at goal- 6.9. The patient also seen by the director of critical care since she complained of nausea and vomiting for one day. Nausea and vomiting resolved, possibly diabetic gastroparesis- as per GI.. Reglan added to existing regimen while in the hospital. Recommended outpatient GI procedure. The patient noted to be anemic. No trend down. Anemia workup revealed stable iron, B12 , folate, possibly anemia of chronic disease. The patient was cleared for discharge by all consultants. DISCHARGE DIAGNOSES: 1. Left foot cellulitis and abscess. 2. Intractable left foot pain. 3. Foreign body, fifth toe, left foot. 4. Status post incision and drainage left foot with removal of foreign body. 5. Diabetes mellitus. 6. Anemia. 7. Possible osteomyelitis. 8. Nausea and vomiting for one day,- resolved. 9. Possible diabetic gastroparesis. 10. Hypertension. 11. Anemia of chronic disease. DISCHARGE MEDICATIONS: See medication reconciliation list. Contineu antibiotics as per ID recommendations DISCHARGE INSTRUCTIONS: The patient discharged home. Reinforced compliance with oral antibiotics and follow up with survey methodologist and primary medical doctor. Pauline Rhodes M.D. I have been assigned to dictate discharge summary on this account and I was not involved in the patient's management. Yamilet Garcia[facility]) N.P. DR: Allison JOB#: [id number] CC: [facility]
--- NOTE | 2016-10-22 03:26 | Cardiology Report ---
APPROVED REPORT EKG Measurement Heart [id number] Normal sinus rhythm Normal ECG
== END 2016-09-30 17:45 | disposition home or self-care (01) | DRG 383 ==
LOC: ENRESERVDT → ENRESERVTM → EMR 08:56 → 4E 08:59 → EDBEDREQ 12:00
PROC: 0JCR0ZZ Extirpation of Matter from Left Foot Subcutaneous Tissue and Fascia, Open Approach (ICD-10-PCS; principal; 2016-09-26 07:30)
DX: L02.612 Cutaneous abscess of left foot (principal); E11.21 Type 2 diabetes mellitus with diabetic nephropathy; E11.43 Type 2 diabetes mellitus with diabetic autonomic (poly)neuropathy; D69.6 Thrombocytopenia, unspecified; K31.84 Gastroparesis; M86.8X7 Other osteomyelitis, ankle and foot; I10 Essential (primary) hypertension; L03.116 Cellulitis of left lower limb; D63.8 Anemia in other chronic diseases classified elsewhere; S91.342A Puncture wound with foreign body, left foot, initial encounter; W45.8XXA Other foreign body or object entering through skin, initial encounter; D64.9 Anemia, unspecified; W25.XXXA Contact with sharp glass, initial encounter; Y92.830 Public park as the place of occurrence of the external cause; D50.9 Iron deficiency anemia, unspecified
CPT/HCPCS: 36415; 71010; 74000; 76001; 80048; 80053; 80202; 81003; 82550; 82607; 82728; 82746; 82962; 82977; 83036; 83540; 83550; 83605; 83735; 83880; 84100; 84443; 84484; 84550; 85007; 85025; 85060; 85610; 85651; 85730; 86140; 87040; 87070; 87075; 87181; 87205; 90471; 90715; 90732; 93005; 94003; 94150; J1815; J2250; J2405

== ENCOUNTER 2019-04-08 14:49 | Emergency (ER) | payer MEDICAID ==
[~2019-04-08] VITALS: Ht 160 cm; Wt 68.0 kg
[~2019-04-08 14:49] MED LIST: LISINOPRIL10 MG ORAL; METFORMIN HCL500 M1 ORAL; ZYVOX600 MG ORAL
[2019-04-08 15:07] VITALS: BP 155/67
--- NOTE | 2019-04-08 15:19 | NUR ---
ED Nurse Note: Patient presents to ER due to laceration to right hand by broken glass 15 days ago. Patient states that it does not heal and repoen as she uses her hands. Reports no fever, chills. NO swelling, redness or red streaks noted. Patient in sitting in chair.
--- NOTE | 2019-04-08 15:53 | Emergency Room Report ---
History of Present Illness General Chief Complaint: Laceration Source: Patient Present Illness HPI 63-year-old female with no significant past medical history other than diabetes currently controlled with metformin here complaining of pain and swelling over hyperthenar side of right hand x15 days. Patient reports that 15 days ago she cut herself with a piece of glass and has been having pain and swelling with minimal bleeding at the site of the laceration since. Denies fever and chills, tingling and numbness. Patient has full range of motion of her hand and no motor or sensory deficits noted. Denies all other injuries, chest pain, short of breath, palpitation, and other associated symptoms. Patient has not taken medication for symptom relief. Allergies: Coded Allergies: No Known Allergies (Unverified , 09/14/16) Patient History Past Medical History: see triage record Past Surgical History: unable to obtain Pertinent Family History: none Now: No Immunizations: UTD Reviewed Nursing Documentation: PMH: Agreed; PSxH: Agreed Nursing Documentation-PMH Past Medical History: No History, Except For Hx Cardiac Problems: Yes Hx Hypertension: Yes Hx Diabetes: Yes Hx Cancer: No Hx Gastrointestinal Problems: No Hx Neurological Problems: No Review of Systems All Other Systems: negative except mentioned in HPI Physical Exam Vital Signs Date Time Temp Pulse Resp B/P (MAP) Pulse Ox O2 Delivery O2 Flow Rate FiO2 04/08/19 15:07 97.9 19 155/67 97 Room Air 04/08/19 15:07 61 Sp02 EP Interpretation: reviewed, normal General Appearance: normal inspection, well appearing, no apparent distress, alert Head: normocephalic, atraumatic Eyes: bilateral eye normal inspection, bilateral eye PERRL ENT: normal ENT inspection, normal pharynx Neck: normal inspection, full range of motion, supple Respiratory: normal inspection, chest non-tender, lungs clear, no rhonchi, no wheezing Cardiovascular #1: normal inspection, regular rate, rhythm, no edema, no murmur , normal capillary refill Cardiovascular #2: 2+ radial (R), 2+ radial (L) Gastrointestinal: normal inspection, non tender, soft Musculoskeletal: back normal, other - Infected laceration however closed in the right hypothenar side of hand Neurologic: normal inspection, alert Psychiatric: normal inspection, judgement/insight normal Skin: laceration - Healed infected superficial laceration right hand Lymphatic: normal inspection, no adenopathy Medical Decision Making PA Attestation All diagnoses and treatment plans were reviewed and discussed with my supervising physician Dr. Panda Diagnostic Impression: Primary Impression: Laceration of right hand with infection ER Course 63-year-old female with no significant past medical history other than diabetes currently controlled with metformin here complaining of pain and swelling over hyperthenar side of right hand x15 days. Patient reports that 15 days ago she cut herself with a piece of glass and has been having pain and swelling with minimal bleeding at the site of the laceration since. Denies fever and chills, tingling and numbness. Patient has full range of motion of her hand and no motor or sensory deficits noted. Denies all other injuries, chest pain, short of breath, palpitation, and other associated symptoms. Patient has not taken medication for symptom relief. Ddx considered but are not limited to : Superficial laceration, deep laceration , tendon involvement with laceration, laceration with foreign body Vital signs: are WNL, pt. is afebrile H&PE are most consistent with: Superficial laceration of right hand with infection ORDERS: Right hand x-ray, Keflex, ibuprofen ED INTERVENTIONS: Wound clean and dress DISCHARGE: At this time pt. is stable for d/c to home. Will provide printed patient care instructions, and any necessary prescriptions. Care plan and follow up instructions have been discussed with the patient prior to discharge. Patient is up-to-date with his tetanus shot. No foreign bodies noted on x- ray. Patient to follow-up with her primary care provider. Other X-Ray Diagnostic Results Other X-Ray Diagnostic Results : X-Ray ordered: Right hands # of Views/Limited Vs Complete: 3 View Indication: Pain EP Interpretation: Yes PA Xray: Interpretation reviewed, by supervising MD, and agrees with findings. Interpretation: no dislocation, no soft tissue swelling, no fractures, other - no fb Impression: No acute disease Electronically Signed by: Gracie Braxton PA-C Last Vital Signs Date Time Temp Pulse Resp B/P (MAP) Pulse Ox O2 Delivery O2 Flow Rate FiO2 04/08/19 15:07 97.9 61 19 155/67 (96) 97 Room Air Disposition: HOME, SELF-CARE Condition: Stable Scripts Ibuprofen* (MOTRIN*) 600 Mg Tablet 600 MG ORAL Q8H PRN for For Pain, #30 TAB 0 Refills Prov: Gracie Hewitt 04/08/19 Cephalexin* (KEFLEX*) 500 Mg Capsule 500 MG ORAL EVERY 6 HOURS for 7 Days, #28 CAP Prov: Gracie Hewitt 04/08/19 Patient Instructions: Laceration Care, Adult Gracie Hewitt Apr 08, 2019 15:53
[2019-04-08] MEDS ORDERED: CEPHALEXIN500 MG ORAL (15:54)
[2019-04-08] MEDS ORDERED: IBUPROFEN600 MG ORAL (15:54)
[2019-04-08 16:29] VITALS: BP 149/72
--- NOTE | 2019-04-08 16:29 | NUR ---
ER DISCHARGE NOTE: Patient is cleared to be discharged per ERMD, pt is aox4, on room air, with stable vital signs. pt was given dc and prescription instructions, pt was able to verbalize understanding, pt id band removed. pt is able to ambulate with steady gait. pt took all belongings.
--- NOTE | 2019-04-09 11:15 | Diagnostic Imaging Report ---
INDICATION: Concern for foreign body TECHNIQUE: XRAY Hand Complete R Multiple views of the None were obtained COMPARISON: None FINDINGS: There is no acute fracture or dislocation. Joint spaces are maintained. No acute soft tissue abnormality. No radiopaque foreign body identified. IMPRESSION: No acute fracture, dislocation, or radiodense foreign body.
== END 2019-04-08 16:29 | disposition home or self-care (01) ==
LOC: EMR 16:00
DX: S61.411A Laceration without foreign body of right hand, initial encounter (principal); L08.9 Local infection of the skin and subcutaneous tissue, unspecified; E11.9 Type 2 diabetes mellitus without complications; I10 Essential (primary) hypertension; Z79.84 Long term (current) use of oral hypoglycemic drugs; W25.XXXA Contact with sharp glass, initial encounter; Y92.9 Unspecified place or not applicable
CPT/HCPCS: 99283

== ENCOUNTER 2019-11-05 10:37 | Emergency (ER) | payer MEDICAID ==
[~2019-11-05] VITALS: Ht 162.6 cm; Wt 68.9 kg
[~2019-11-05 10:37] MED LIST changes: +CEPHALEXIN500 MG ORAL; +IBUPROFEN600 MG ORAL
[2019-11-05] MEDS ORDERED: Omnipaque-300 100ml vial INJ PRN (11:00)
[2019-11-05 11:05] VITALS: BP 125/68
--- NOTE | 2019-11-05 11:05 | NUR ---
ED Nurse Note: Patient walked in to ER c/o lower abd pain, N/V/D x 3 days. Patient presented calm, AAO x4, VSS at this time, skin is warm to touch.
--- NOTE | 2019-11-05 11:09 | Emergency Room Report ---
History of Present Illness General Chief Complaint: Abdominal Pain Source: Patient Present Illness HPI 64-year-old female history of CAD history of hypertension history of cath presents with abdominal pain with nausea vomiting and diarrhea no blood no fever no chills no other person sick, she endorses nominal cramps that come and go has been ongoing for about 3 days severity is mild, intermittent patient presents for evaluation Allergies: Coded Allergies: No Known Allergies (Unverified , 09/14/16) Patient History Past Medical History: see triage record Reviewed Nursing Documentation: PMH: Agreed; PSxH: Agreed Nursing Documentation-PMH Past Medical History: No History, Except For Hx Cardiac Problems: Yes Hx Hypertension: Yes Hx Diabetes: Yes Hx Cancer: No Hx Gastrointestinal Problems: No Hx Neurological Problems: No Review of Systems All Other Systems: negative except mentioned in HPI Physical Exam Vital Signs Date Time Temp Pulse Resp B/P (MAP) Pulse Ox O2 Delivery O2 Flow Rate FiO2 11/05/19 10:44 98.4 79 16 125/68 (87) 98 Room Air Sp02 EP Interpretation: reviewed, normal General Appearance: well appearing, no apparent distress, alert Head: normocephalic, atraumatic Eyes: bilateral eye PERRL, bilateral eye EOMI ENT: uvula midline, moist mucus membranes Neck: supple, thyroid normal, supple/symm/no masses Respiratory: lungs clear, no respiratory distress, no retraction, no accessory muscle use Cardiovascular #1: normal peripheral pulses, regular rate, rhythm, no edema, no gallop, no murmur Gastrointestinal: non tender, soft, no guarding, no rebound Musculoskeletal: normal inspection Neurologic: alert, oriented x3 Psychiatric: mood/affect normal Skin: no rash, warm/dry Medical Decision Making Diagnostic Impression: Primary Impression: Viral gastroenteritis Additional Impression: UTI (urinary tract infection) Qualified Codes: N30.00 - Acute cystitis without hematuria ER Course 64-year-old female presents with generalized abdominal pain differential diagnosis includes viral gastroenteritis, UTI, Pyelonephritis Patient's abdomen soft no nontender no rebound no guarding CT scan shows enteritis most likely viral in nature Patient also incidentally with UTI will provide antibiotics Disposition home with return precautions follow-up with PCP Laboratory Tests Test 11/05/19 11:09 White Blood Count 7.2 K/UL (4.8-10.8) Red Blood Count 3.61 M/UL (4.20-5.40) L Hemoglobin 11.2 G/DL (12.0-16.0) L Hematocrit 32.3 % (37.0-47.0) L Mean Corpuscular Volume 90 FL (80-99) Mean Corpuscular Hemoglobin 31.2 PG (27.0-31.0) H Mean Corpuscular Hemoglobin Concent 34.8 G/DL (32.0-36.0) Red Cell Distribution Width 11.2 % (11.6-14.8) L Platelet Count 121 K/UL (150-450) L Mean Platelet Volume 9.2 FL (6.5-10.1) Neutrophils (%) (Auto) 75.6 % (45.0-75.0) H Lymphocytes (%) (Auto) 11.3 % (20.0-45.0) L Monocytes (%) (Auto) 9.9 % (1.0-10.0) Eosinophils (%) (Auto) 2.6 % (0.0-3.0) Basophils (%) (Auto) 0.6 % (0.0-2.0) Prothrombin Time 10.0 SEC (9.30-11.50) Prothrombin Time INR 0.9 (0.9-1.1) Activated Partial Thromboplast Time 26 SEC (23-33) Urine Color Yellow Urine Appearance Cloudy Urine pH 5 (4.5-8.0) Urine Specific [place] 1.015 (1.005-1.035) Urine Protein 2+ (NEGATIVE) H Urine Glucose (UA) Negative (NEGATIVE) Urine Ketones Negative (NEGATIVE) Urine Blood 1+ (NEGATIVE) H Urine Nitrite Positive (NEGATIVE) H Urine Bilirubin 2+ (NEGATIVE) H Urine Ictotest Negative (NEGATIVE) Urine Urobilinogen Normal MG/DL (0.0-1.0) Urine Leukocyte Esterase 2+ (NEGATIVE) H Urine RBC 2-4 /HPF (0 - 2) H Urine WBC 10-15 /HPF (0 - 2) H Urine Squamous Epithelial Cells Many /LPF (NONE/OCC) H Urine Bacteria Moderate /HPF (NONE) H Sodium Level 140 MMOL/L (136-145) Potassium Level 4.4 MMOL/L (3.5-5.1) Chloride Level 104 MMOL/L (98-107) Carbon Dioxide Level 24 MMOL/L (21-32) Anion Gap 12 mmol/L (5-15) Blood Urea Nitrogen 26 mg/dL (7-18) H Creatinine 1.2 MG/DL (0.55-1.30) Estimate Glomerular Filtration Rate 45.5 mL/min (>60) Glucose Level 157 MG/DL (74-106) H Calcium Level 8.9 MG/DL (8.5-10.1) Total Bilirubin 0.5 MG/DL (0.2-1.0) Aspartate Amino Transferase (AST) 27 U/L (15-37) Alanine Aminotransferase (ALT) 39 U/L (12-78) Alkaline Phosphatase 91 U/L (46-116) Troponin I 0.030 ng/mL (0.000-0.056) Total Protein 7.5 G/DL (6.4-8.2) Albumin 3.7 G/DL (3.4-5.0) Globulin 3.8 g/dL Albumin/Globulin Ratio 1.0 (1.0-2.7) Lipase 327 U/L (73-393) EKG Diagnostic Results EKG Time: 10:22 EP Interpretation: NSR, rate 69, QTc 424, no acute ST elevations, left axis deviation CT/MRI/US Diagnostic Results CT/MRI/US Diagnostic Results : Impression Procedure: CT Abdomen Pelvis w/Contrast Clinical Indication: Abdominal pain, nausea, vomiting, diarrhea Technique: No oral contrast utilized, per emergency room physician request IV administration nonionic contrast. Venous phase spiral acquisition obtained through the abdomen and pelvis. Multiplanar reconstructions were generated. Total dose length product 339 mGycm. CTDIvol(s) 6 mGy. Dose reduction achieved using automated exposure control Comparison: none Findings: Lack of enteric contrast limits assessment of the GI tract. Small bowel loops, predominantly proximal mid jejunal loops in the left upper quadrant, demonstrate equivocal mild wall thickening. There is mural enhancement and some haziness of the adjacent mesenteric fat. The distal small bowel appears unremarkable. The appendix is normal. There is no evidence of colonic diverticulosis or diverticulitis. No free or loculated intraperitoneal gas or fluid is evident. The distal esophagus, stomach, duodenum are unremarkable. The gallbladder contains gallstones. No wall thickening or pericholecystic inflammation demonstrated. The liver, bile ducts, pancreas, spleen, adrenals, kidneys are unremarkable. No renal or ureter calculi, hydronephrosis, or hydroureter. The bladder contains nondependent gas. No bladder wall thickening demonstrated. The uterus demonstrates a 1.5 cm area of enhancement in the myometrium. The adnexal structures appear unremarkable. No pelvic mass or adenopathy otherwise. No retroperitoneal or mesenteric mass or adenopathy. The included lung bases demonstrate posterior dependent atelectatic changes. The bones demonstrate mild degenerative spondylosis changes. Impression: Limited assessment of the GI tract, due to lack of enteric contrast demonstration Mild proximal small bowel wall thickening, mural enhancement, and slight infiltration of the adjacent mesenteric fat suggests enteritis changes Gas within the bladder lumen. Most likely due to recent instrumentation; if no history of such then the possibility of infection with a gas-forming organism should be considered Cholelithiasis Probable 1.5 cm uterine fibroid Other findings as noted, including degenerative spondylosis, posterior dependent pulmonary atelectatic changes The CT scanner at [facility] is accredited by the [employer] and the scans are performed using protocols designed to limit radiation exposure to as low as reasonably achievable to attain images of sufficient resolution adequate for diagnostic evaluation. Dictated By: Nicola Barajas MD Electronically Signed By: Nicola Barajas MD Signed Date/Time 11/05/19 1402 CC: Bladimir Jason MD Last Vital Signs Date Time Temp Pulse Resp B/P (MAP) Pulse Ox O2 Delivery O2 Flow Rate FiO2 11/05/19 10:44 98.4 79 16 125/68 (87) 98 Room Air Disposition: HOME, SELF-CARE Condition: Stable Scripts Cephalexin* (KEFLEX*) 500 Mg Tablet 500 MG ORAL EVERY 6 HOURS, #28 CAP Prov: Bladimir Jason MD 11/05/19 Referrals: NOT CHOSEN DIDIER/,REFERRING (PCP) [facility]ane[facility]. [facility] Patient Instructions: Urinary Tract Infection, [id number], Viral Gastroenteritis, Adult Additional Instructions: The patient was provided with discharge instructions, notified to follow-up with a primary care doctor and or specialist in the next 24-48 hours, and to return to the ED if they have worsening of their symptoms. Please note that this report is being documented using [employer] technology. This can lead to erroneous entry secondary to incorrect interpretation by the dictating instrument. Bladimir Jason MD Nov 05, 2019 11:09
--- NOTE | 2019-11-05 11:15 | NUR ---
ED Nurse Note: IV line was established, blood and urine specimen were collected sent down
[2019-11-05 11:28] LABS: APPEARANCE,URINE CLOUDY; BILIRUBIN, URINE 2+ (NEGATIVE); GLUCOSE, URINE (UA) NEGATIVE (NEGATIVE); KETONES,URINE NEGATIVE (NEGATIVE); LEUKOCYTE ESTERASE ,URINE 2+ (NEGATIVE); NITRITE,URINE POSITIVE (NEGATIVE); PH,URINE 5 (4.5-8.0); PROTEIN,URINE 2+ (NEGATIVE); UROBILINOGEN,URINE NORMAL MG/DL (0.0-1.0)
[2019-11-05 11:32] LABS: COLOR,URINE YELLOW
[2019-11-05 11:34] LABS: ANION GAP 12 mmol/L (5-15); BLOOD UREA NITROGEN 26 mg/dL (7-18); CALCIUM 8.9 MG/DL (8.5-10.1); CARBON DIOXIDE 24 MMOL/L (21-32); CHLORIDE 104 MMOL/L (98-107); CREATININE 1.2 MG/DL (0.55-1.30); POTASSIUM 4.4 MMOL/L (3.5-5.1); SODIUM 140 MMOL/L (136-145)
[2019-11-05 11:38] LABS: INR 0.9 (0.9-1.1)
[2019-11-05 11:39] LABS: ALANINE AMINOTRANSFERASE 39 U/L (12-78); ALBUMIN 3.7 G/DL (3.4-5.0); ALKALINE PHOSPHATASE 91 U/L (46-116); ASPARTATE AMINO TRANSFERASE 27 U/L (15-37); BILIRUBIN,TOTAL 0.5 MG/DL (0.2-1.0)
[2019-11-05 11:41] LABS: BASOPHILS % (AUTO) 0.6 % (0.0-2.0); EOSINOPHILS % (AUTO) 2.6 % (0.0-3.0); HEMATOCRIT 32.3 % (37.0-47.0); HEMOGLOBIN 11.2 G/DL (12.0-16.0); LYMPHOCYTES % (AUTO) 11.3 % (20.0-45.0); MEAN CORPUSCULAR VOLUME 90 FL (80-99); MONOCYTES % (AUTO) 9.9 % (1.0-10.0); NEUTROPHILS % (AUTO) 75.6 % (45.0-75.0); PLATELET COUNT 121 K/UL (150-450); RED BLOOD COUNT 3.61 M/UL (4.20-5.40); RED CELL DISTRIBUTION WIDTH 11.2 % (11.6-14.8); WHITE BLOOD COUNT 7.2 K/UL (4.8-10.8)
--- NOTE | 2019-11-05 12:21 | NUR ---
ED Nurse Note: Pt went for CT accompanied by tech.
[2019-11-05] MEDS ORDERED: cefTRIAXone 1 GM in NS 55 ML IVPB ONE (13:15)
--- NOTE | 2019-11-05 14:07 | Diagnostic Imaging Report ---
Clinical Indication: Abdominal pain, nausea, vomiting, diarrhea Technique: No oral contrast utilized, per emergency room physician request IV administration nonionic contrast. Venous phase spiral acquisition obtained through the abdomen and pelvis. Multiplanar reconstructions were generated. Total dose length product 339 mGycm. CTDIvol(s) 6 mGy. Dose reduction achieved using automated exposure control Comparison: none Findings: Lack of enteric contrast limits assessment of the GI tract. Small bowel loops, predominantly proximal mid jejunal loops in the left upper quadrant, demonstrate equivocal mild wall thickening. There is mural enhancement and some haziness of the adjacent mesenteric fat. The distal small bowel appears unremarkable. The appendix is normal. There is no evidence of colonic diverticulosis or diverticulitis. No free or loculated intraperitoneal gas or fluid is evident. The distal esophagus, stomach, duodenum are unremarkable. The gallbladder contains gallstones. No wall thickening or pericholecystic inflammation demonstrated. The liver, bile ducts, pancreas, spleen, adrenals, kidneys are unremarkable. No renal or ureter calculi, hydronephrosis, or hydroureter. The bladder contains nondependent gas. No bladder wall thickening demonstrated. The uterus demonstrates a 1.5 cm area of enhancement in the myometrium. The adnexal structures appear unremarkable. No pelvic mass or adenopathy otherwise. No retroperitoneal or mesenteric mass or adenopathy. The included lung bases demonstrate posterior dependent atelectatic changes. The bones demonstrate mild degenerative spondylosis changes. Impression: Limited assessment of the GI tract, due to lack of enteric contrast demonstration Mild proximal small bowel wall thickening, mural enhancement, and slight infiltration of the adjacent mesenteric fat suggests enteritis changes Gas within the bladder lumen. Most likely due to recent instrumentation; if no history of such then the possibility of infection with a gas-forming organism should be considered Cholelithiasis Probable 1.5 cm uterine fibroid Other findings as noted, including degenerative spondylosis, posterior dependent pulmonary atelectatic changes The CT scanner at [facility] is accredited by the [employer] and the scans are performed using protocols designed to limit radiation exposure to as low as reasonably achievable to attain images of sufficient resolution adequate for diagnostic evaluation.
[2019-11-05] MEDS ORDERED: CEPHALEXIN500 M1 ORAL (14:16)
[2019-11-05] MEDS ORDERED: ZOFRAN4 MG ORAL (14:19)
[2019-11-05 14:23] VITALS: BP 125/68
--- NOTE | 2019-11-05 14:23 | NUR ---
ER DISCHARGE NOTE: Patient is cleared to be discharged per ERMD, pt is aox4, on room air, with stable vital signs. pt was given dc and prescription instructions, pt was able to verbalize understanding, pt id band and iv site removed without complications. pt is able to ambulate with steady gait. pt took all belongings. Pt left ED accompanied by family members.
== END 2019-11-05 14:23 | disposition home or self-care (01) ==
LOC: EMR 10:56
DX: A08.4 Viral intestinal infection, unspecified (principal); N30.00 Acute cystitis without hematuria; E11.9 Type 2 diabetes mellitus without complications; I11.0 Hypertensive heart disease with heart failure; D25.9 Leiomyoma of uterus, unspecified; K80.20 Calculus of gallbladder without cholecystitis without obstruction; M47.9 Spondylosis, unspecified
CPT/HCPCS: 36415; 74177; 80053; 81003; 83690; 84484; 85025; 85610; 85730; 87086; 87181; 93005; 96361; 96365; J0696; J7030; Q9967; Z7502; 99284

== ENCOUNTER 2020-02-13 16:40 | Emergency (ER) | payer MEDICAID ==
[~2020-02-13] VITALS: Ht 152.4 cm; Wt 71.7 kg
[~2020-02-13 16:40] MED LIST changes: +CEPHALEXIN500 M1 ORAL; +ZOFRAN4 MG ORAL
[2020-02-13 17:10] VITALS: BP 125/72
[2020-02-13] MEDS ORDERED: Cephalexin 500mg cap ORAL ONE (17:15)
[2020-02-13] MEDS ORDERED: Tetanus/Diptheria/Pertussis IM ONE (17:15)
--- NOTE | 2020-02-13 17:16 | Emergency Room Report ---
History of Present Illness General Chief Complaint: Puncture Wound Source: Patient, Medical Record Present Illness HPI 64-year-old female with history of type 2 diabetes currently taking metformin here due to a puncture wound in left foot that occurred yesterday. Cellulitis noted at the site and warm to touch. No pus drainage noted. Patient does not recall how she got the puncture wound however rates the pain 7 out of 10 without radiation. Denies any tingling and numbness. Has not taken medication for symptom relief. Denies any fever and chills, cough and congestion, shortness of breath and chest pain. Patient reports that she is not up-to-date with her tetanus shot. 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 Patient History Past Medical History: see triage record Past Surgical History: none Pertinent Family History: none Immunizations: other - Tdap given today Reviewed Nursing Documentation: PMH: Agreed; PSxH: Agreed Nursing Documentation-PMH Past Medical History: No History, Except For Hx Cardiac Problems: Yes - stent Hx Hypertension: Yes Hx Diabetes: Yes Hx Cancer: No Hx Gastrointestinal Problems: No Hx Neurological Problems: No Review of Systems All Other Systems: negative except mentioned in HPI Physical Exam Vital Signs Date Time Temp Pulse Resp B/P (MAP) Pulse Ox O2 Delivery O2 Flow Rate FiO2 02/13/20 16:48 99.9 65 17 128/74 (92) 95 Room Air Sp02 EP Interpretation: reviewed, normal General Appearance: no apparent distress, alert, GCS 15, non-toxic Head: normocephalic, atraumatic Eyes: bilateral eye normal inspection, bilateral eye PERRL ENT: hearing grossly normal, normal pharynx, no angioedema, normal voice Neck: full range of motion, supple/symm/no masses Respiratory: chest non-tender, lungs clear, normal breath sounds, no rhonchi, no respiratory distress, no retraction, no wheezing, speaking full sentences Cardiovascular #1: regular rate, rhythm, no edema, no murmur Cardiovascular #2: 2+ dorsalis pedis (R), 2+ dorsalis pedis (L) Gastrointestinal: normal bowel sounds, non tender, soft, non-distended, no guarding, no rebound Rectal: deferred Genitourinary: no CVA tenderness Musculoskeletal: back normal, no calf tenderness, pelvis stable, no lower extremity edema, other - Cellulitis and puncture wound left foot, no tendon involvement noted Neurologic: alert, motor strength/tone normal, oriented x3, sensory intact, responsive, speech normal Psychiatric: judgement/insight normal, memory normal, mood/affect normal, no suicidal/homicidal ideation Skin: other - Cellulitis and puncture wound left foot Lymphatic: no adenopathy Medical Decision Making PA Attestation All diagnoses and treatment plans were reviewed and discussed with my supervising physician Dr. Panda Diagnostic Impression: Primary Impression: Puncture wound of foot Additional Impression: Cellulitis of left foot ER Course 64-year-old female with history of type 2 diabetes currently taking metformin here due to a puncture wound in left foot that occurred yesterday. Cellulitis noted at the site and warm to touch. No pus drainage noted. Patient does not recall how she got the puncture wound however rates the pain 7 out of 10 without radiation. Denies any tingling and numbness. Has not taken medication for symptom relief. Denies any fever and chills, cough and congestion, shortness of breath and chest pain. Patient reports that she is not up-to-date with her tetanus shot. Patient is neurovascularly intact Ddx considered but are not limited to : Cellulitis, DVT, superficial infection, abscess Vital signs: are WNL, pt. is afebrile H&PE are most consistent with: Puncture wound left foot, cellulitis ORDERS: Left foot x-ray, Keflex, Motrin ED INTERVENTIONS: Keflex, Tdap, wound clean and dressed DISCHARGE: At this time pt. is stable for d/c to home. Will provide printed patient care instructions, and any necessary prescriptions. Care plan and follow up instructions have been discussed with the patient prior to discharge. Patient to follow-up with primary doctor in 2 to 3 days for wound check take medication as directed, fever and chills return to emergency room. Other X-Ray Diagnostic Results Other X-Ray Diagnostic Results : X-Ray ordered: left foot X ray # of Views/Limited Vs Complete: 3 View Indication: Pain EP Interpretation: Yes SILVIO Xray: Interpretation reviewed, by supervising MD, and agrees with findings. Interpretation: no dislocation, no soft tissue swelling, no fractures, other - No foreign body noted Impression: No acute disease Electronically Signed by: Gracie Braxton PA-C Last Vital Signs Date Time Temp Pulse Resp B/P (MAP) Pulse Ox O2 Delivery O2 Flow Rate FiO2 02/13/20 16:48 99.9 65 17 128/74 (92) 95 Room Air Disposition: HOME, SELF-CARE Condition: Stable Scripts Ibuprofen* (MOTRIN*) 600 Mg Tablet 600 MG ORAL Q8H PRN for FOR PAIN, #30 TAB 0 Refills Prov: Gracie Hewitt 02/13/20 Cephalexin* (KEFLEX*) 500 Mg Capsule 500 MG ORAL EVERY 6 HOURS for 7 Days, #28 CAP Prov: Gracie Hewitt 02/13/20 Patient Instructions: Puncture Wound Additional Instructions: Take medication as directed, keep affected area elevated, avoid strenuous physical activity, if worsening symptoms return to the emergency room Gracie Hewitt Feb 13, 2020 17:16
[2020-02-13] MEDS ORDERED: CEPHALEXIN500 MG ORAL (17:18)
[2020-02-13] MEDS ORDERED: IBUPROFEN600 M1 ORAL (17:18)
[2020-02-13 17:39] VITALS: BP 122/71
--- NOTE | 2020-02-13 17:50 | Diagnostic Imaging Report ---
EXAM: XR Left Foot Complete, 3 or More Views CLINICAL HISTORY: TRAUMA TECHNIQUE: Frontal, lateral and oblique views of the left foot. COMPARISON: 09/20/2016. FINDINGS: Bones/joints: No acute displaced fracture or dislocation. Soft tissues: Soft tissue swelling. No radiopaque foreign body. IMPRESSION: No acute displaced fracture or dislocation.
== END 2020-02-13 17:41 | disposition home or self-care (01) ==
LOC: EMR 17:00
DX: S91.332A Puncture wound without foreign body, left foot, initial encounter (principal); L03.116 Cellulitis of left lower limb; I10 Essential (primary) hypertension; E11.9 Type 2 diabetes mellitus without complications; Z95.818 Presence of other cardiac implants and grafts; X58.XXXA Exposure to other specified factors, initial encounter; Y93.9 Activity, unspecified; Y92.9 Unspecified place or not applicable
CPT/HCPCS: 73630; 90471; 90715; Z7502; 99283